=== PATIENT | male | born 1940 | race Caucasian/White ===

== ENCOUNTER 2021-02-28 16:42 | Inpatient (IN) | payer MEDICARE, OTHER ==
[~2021-02-28] VITALS: Ht 167.6 cm; Wt 87.7 kg
[2021-02-28] MEDS ORDERED: Z GUARD REMEDY PASTE 57 GM TUBE TOP PRN (21:15)
[2021-02-28 22:00] VITALS: BP 130/71
[2021-02-28] MEDS ORDERED: FERR325T28 PO (22:15)
[2021-02-28] MEDS ORDERED: HYDR-4077 PO (22:15)
[2021-02-28] MEDS ORDERED: ACET-2154 PO (22:15)
[2021-02-28] MEDS ORDERED: FINA5TAB3 PO (22:15)
[2021-02-28] MEDS ORDERED: PANT40TA2 PO (22:15)
[2021-02-28] MEDS ORDERED: FOLI1TAB94 PO (22:15)
[2021-02-28] MEDS ORDERED: ATOR10TA PO (22:15)
[2021-02-28] MEDS ORDERED: ALLO100T PO (22:15)
[2021-02-28] MEDS ORDERED: LINA5TAB PO (22:15)
[2021-02-28] MEDS ORDERED: BLOO-668 IN (22:15)
[2021-02-28] MEDS ORDERED: AMLO2.5T2 PO (22:15)
[2021-02-28] MEDS ORDERED: HYDR-3972 PO (22:15)
[2021-02-28] MEDS ORDERED: LIPA1CAP27 PO (22:15)
[2021-02-28] MEDS ORDERED: NATE120T PO (22:15)
[2021-02-28] MEDS ORDERED: ENOX40DI SQ (22:15)
[2021-02-28] MEDS ORDERED: TERA10CA4 PO (22:15)
[2021-02-28] MEDS ORDERED: CARV25TA PO (22:15)
[2021-02-28] MEDS ORDERED: ASPI-869 PO (22:15)
[2021-02-28] MEDS ORDERED: INSU100V28 SQ (22:15)
[2021-02-28] MEDS ORDERED: ALLOPURINOL 100 MG TABLET PO PRN (23:15)
[2021-02-28] MEDS ORDERED: DEXTROSE 50% 50 ML DISP.SYRIN IV PRN (23:15)
[2021-02-28] MEDS ORDERED: HYDROCODONE/APAP 5-325MG TABLET PO PRN (23:15)
[2021-03-01 04:00] VITALS: BP 120/65
[2021-03-01] MEDS: BLOOD SUGAR DIAGNOSTIC 1 EACH STRIP VI SCH ×4 (06:53→21:04)
[2021-03-01] MEDS ORDERED: PANTOPRAZOLE SODIUM 40 MG TABLET.DR PO SCH (07:30)
[2021-03-01 08:00] VITALS: BP 119/63
[2021-03-01] MEDS: NATEGLINIDE 60 MG TABLET PO SCH ×3 (08:26→17:16)
[2021-03-01] MEDS: LIPASE/PROTEASE/AMYLASE 4200 UNITS CAPSULE.DR PO SCH ×3 (08:47→17:17)
[2021-03-01] MEDS: CARVEDILOL 25 MG TABLET PO SCH ×2 (08:47→17:17)
[2021-03-01] MEDS: FERROUS SULFATE 325 MG TABEC PO SCH (08:47)
[2021-03-01] MEDS: FOLIC ACID 1 MG TABLET PO SCH (08:47)
[2021-03-01] MEDS: AMLODIPINE 2.5 MG TABLET PO SCH (08:48)
[2021-03-01] MEDS: LINAGLIPTIN 5 MG TABLET PO SCH (08:48)
[2021-03-01] MEDS: FINASTERIDE 5 MG TABLET PO SCH (08:48)
[2021-03-01] MEDS: ASPIRIN 81 MG TAB.CHEW PO SCH (08:48)
[2021-03-01] MEDS: TERAZOSIN 5 MG CAPSULE PO SCH (08:48)
[2021-03-01] MEDS: hydrALAZINE HCL 50 MG TABLET PO SCH ×2 (08:49→20:50)
[2021-03-01] MEDS: INSULIN REGULAR, HUMAN 300 UNIT/3 ML VIAL SQ PRN ×3 (08:51→17:51)
[2021-03-01] MEDS ORDERED: TERAZOSIN HCL 10 MG PO SCH (09:00)
[2021-03-01] MEDS ORDERED: Medication Not On Formulary EA (Nateglinide (Starlix) 120 MG) PO SCH (09:00)
[2021-03-01] MEDS ORDERED: ASPIRIN EC 325 MG TABLET.DR PO SCH (09:00)
[2021-03-01] MEDS: ALLOPURINOL 100 MG TABLET PO SCH (12:04)
[2021-03-01 16:00] VITALS: BP 122/65
[2021-03-01] MEDS ORDERED: ENOXAPARIN SODIUM 40 MG/0.4 ML DISP.SYRIN SQ SCH (18:00)
[2021-03-01 20:28] VITALS: BP 116/64
[2021-03-01] MEDS: ATORVASTATIN 10 MG TABLET PO SCH (20:50)
[2021-03-01] MEDS: ENOXAPARIN SODIUM 40 MG/0.4 ML DISP.SYRIN SQ SCH (20:54)
[2021-03-01] MEDS: INSULIN REGULAR, HUMAN 300 UNITS/3 ML VIAL SQ PRN (21:04)
[2021-03-02 04:00] VITALS: BP 114/55
[2021-03-02] MEDS: NATEGLINIDE 60 MG TABLET PO SCH ×3 (06:33→17:51)
[2021-03-02] MEDS: PANTOPRAZOLE SODIUM 40 MG TABLET.DR PO SCH (06:33)
[2021-03-02] MEDS: BLOOD SUGAR DIAGNOSTIC 1 EACH STRIP VI SCH ×4 (06:37→21:00)
[2021-03-02 06:45] LABS: BASOPHILS % (AUTO) 0.6 % (0.0-2.0); CARBON DIOXIDE 23 mmol/L (21-32); CHLORIDE 102 mmol/L (98-107); CREATININE 1.7 mg/dL (0.6-1.3); EOSINOPHILS # (AUTO) 0.1 K/uL (0.0-0.7); EOSINOPHILS % (AUTO) 2.1 % (0.0-7.0); GLUCOSE 194 mg/dL (74-106); HEMATOCRIT 37.5 % (36.7-47.1); HEMOGLOBIN 12.3 g/dL (12.5-16.3); LYMPHOCYTES # (AUTO) 0.8 K/uL (20.0-40.0); LYMPHOCYTES % (AUTO) 15.5 % (20.5-51.5); MAGNESIUM 1.9 mg/dL (1.8-2.4); MEAN CORPUSCULAR HEMOGLOBIN 29.8 uug (23.8-33.4); MEAN CORPUSCULAR HGB CONC 33 g/dL (32.5-36.3); MEAN CORPUSCULAR VOLUME 90.7 fL (73.0-96.2); MONOCYTES # (AUTO) 0.9 K/uL (2.0-10.0); NEUTROPHILS # (AUTO) 3.6 K/uL (1.8-8.9); NEUTROPHILS % (AUTO) 65.8 % (38.5-71.5); PHOSPHOROUS 3.3 mg/dL (2.5-4.9); PLATELET COUNT (AUTO) 135 K/uL (152-348); POTASSIUM 3.8 mmol/L (3.5-5.1); RED BLOOD CELL COUNT(AUTO) 4.13 MIL/uL (4.06-5.63); UREA NITROGEN, BLOOD 26 mg/dL (7-18); WHITE BLOOD COUNT (AUTO) 5.4 K/uL (3.6-10.2)
[2021-03-02] MEDS ORDERED: PANTOPRAZOLE SODIUM 40 MG TABLET.DR PO SCH (07:00)
[2021-03-02] MEDS: CARVEDILOL 25 MG TABLET PO SCH ×2 (08:00→17:52)
[2021-03-02 08:17] VITALS: BP 98/48
[2021-03-02] MEDS: ASPIRIN 81 MG TAB.CHEW PO SCH (08:32)
[2021-03-02] MEDS: TERAZOSIN 5 MG CAPSULE PO SCH (08:33)
[2021-03-02] MEDS: FINASTERIDE 5 MG TABLET PO SCH (08:34)
[2021-03-02] MEDS: FERROUS SULFATE 325 MG TABEC PO SCH (08:34)
[2021-03-02] MEDS: LINAGLIPTIN 5 MG TABLET PO SCH (08:34)
[2021-03-02] MEDS: FOLIC ACID 1 MG TABLET PO SCH (08:35)
[2021-03-02] MEDS: ALLOPURINOL 100 MG TABLET PO SCH (08:35)
[2021-03-02] MEDS: LIPASE/PROTEASE/AMYLASE 4200 UNITS CAPSULE.DR PO SCH ×3 (08:37→17:50)
[2021-03-02] MEDS: AMLODIPINE 2.5 MG TABLET PO SCH (08:43)
[2021-03-02] MEDS: hydrALAZINE HCL 50 MG TABLET PO SCH ×2 (08:43→20:36)
[2021-03-02 15:46] LABS: EOSINOPHILS % (MANUAL) 1 % (0-8); LYMPHOCYTES % (MANUAL) 14 % (20-40); MONOCYTES % (MANUAL) 16 % (2-10); NEUTROPHILS % (MANUAL) 69 % (42-75)
[2021-03-02 15:49] VITALS: BP 108/57
[2021-03-02] MEDS: INSULIN REGULAR, HUMAN 300 UNIT/3 ML VIAL SQ PRN (17:56)
[2021-03-02 20:10] VITALS: BP 119/64
[2021-03-02] MEDS: ATORVASTATIN 10 MG TABLET PO SCH (20:33)
[2021-03-02] MEDS: INSULIN REGULAR, HUMAN 300 UNITS/3 ML VIAL SQ PRN (20:37)
[2021-03-02] MEDS: ENOXAPARIN SODIUM 40 MG/0.4 ML DISP.SYRIN SQ SCH (20:37)
[2021-03-03 05:37] VITALS: BP 106/48
[2021-03-03] MEDS: PANTOPRAZOLE SODIUM 40 MG TABLET.DR PO SCH (06:33)
[2021-03-03] MEDS: NATEGLINIDE 60 MG TABLET PO SCH ×3 (06:34→17:01)
[2021-03-03] MEDS: BLOOD SUGAR DIAGNOSTIC 1 EACH STRIP VI SCH ×4 (07:02→20:02)
[2021-03-03] MEDS: INSULIN REGULAR, HUMAN 300 UNIT/3 ML VIAL SQ PRN ×3 (07:57→17:42)
[2021-03-03 08:05] VITALS: BP 120/53
[2021-03-03] MEDS: FOLIC ACID 1 MG TABLET PO SCH (08:21)
[2021-03-03] MEDS: ASPIRIN 81 MG TAB.CHEW PO SCH (08:21)
[2021-03-03] MEDS: LINAGLIPTIN 5 MG TABLET PO SCH (08:21)
[2021-03-03] MEDS: TERAZOSIN 5 MG CAPSULE PO SCH (08:21)
[2021-03-03] MEDS: FINASTERIDE 5 MG TABLET PO SCH (08:21)
[2021-03-03] MEDS: FERROUS SULFATE 325 MG TABEC PO SCH (08:21)
[2021-03-03] MEDS: CARVEDILOL 25 MG TABLET PO SCH ×2 (08:22→17:36)
[2021-03-03] MEDS: AMLODIPINE 2.5 MG TABLET PO SCH (08:22)
[2021-03-03] MEDS: hydrALAZINE HCL 50 MG TABLET PO SCH ×2 (08:23→20:02)
[2021-03-03] MEDS: ALLOPURINOL 100 MG TABLET PO SCH (08:23)
[2021-03-03] MEDS: LIPASE/PROTEASE/AMYLASE 4200 UNITS CAPSULE.DR PO SCH ×3 (08:24→17:37)
[2021-03-03 16:11] VITALS: BP 118/60
[2021-03-03 19:46] VITALS: BP 129/63
[2021-03-03] MEDS: ATORVASTATIN 10 MG TABLET PO SCH (20:02)
[2021-03-03] MEDS: ENOXAPARIN SODIUM 40 MG/0.4 ML DISP.SYRIN SQ SCH (20:04)
[2021-03-03] MEDS: INSULIN REGULAR, HUMAN 300 UNITS/3 ML VIAL SQ PRN (20:05)
[2021-03-04 04:45] VITALS: BP 116/60
[2021-03-04] MEDS: NATEGLINIDE 60 MG TABLET PO SCH ×3 (06:27→16:57)
[2021-03-04] MEDS: PANTOPRAZOLE SODIUM 40 MG TABLET.DR PO SCH (06:27)
[2021-03-04 06:41] LABS: BASOPHILS % (AUTO) 0.8 % (0.0-2.0); EOSINOPHILS # (AUTO) 0.1 K/uL (0.0-0.7); HEMATOCRIT 35.5 % (36.7-47.1); LYMPHOCYTES # (AUTO) 1.3 K/uL (20.0-40.0); LYMPHOCYTES % (AUTO) 24.3 % (20.5-51.5); MEAN CORPUSCULAR HEMOGLOBIN 30.4 uug (23.8-33.4); MEAN CORPUSCULAR HGB CONC 34 g/dL (32.5-36.3); MEAN CORPUSCULAR VOLUME 90.1 fL (73.0-96.2); MONOCYTES # (AUTO) 1.1 K/uL (2.0-10.0); MONOCYTES % (AUTO) 21.1 % (0.0-11.0); NEUTROPHILS # (AUTO) 2.8 K/uL (1.8-8.9); NEUTROPHILS % (AUTO) 52.8 % (38.5-71.5); PLATELET COUNT (AUTO) 130 K/uL (152-348); RED BLOOD CELL COUNT(AUTO) 3.94 MIL/uL (4.06-5.63); WHITE BLOOD COUNT (AUTO) 5.3 K/uL (3.6-10.2)
[2021-03-04 06:54] LABS: CARBON DIOXIDE 24 mmol/L (21-32); CHLORIDE 102 mmol/L (98-107); CREATININE 1.8 mg/dL (0.6-1.3); GLUCOSE 168 mg/dL (74-106); POTASSIUM 3.9 mmol/L (3.5-5.1); UREA NITROGEN, BLOOD 24 mg/dL (7-18)
[2021-03-04] MEDS: BLOOD SUGAR DIAGNOSTIC 1 EACH STRIP VI SCH ×4 (07:49→20:43)
[2021-03-04 07:52] LABS: BAND % (MANUAL) 1 % (0-10); EOSINOPHILS % (MANUAL) 1 % (0-8); LYMPHOCYTES % (MANUAL) 20 % (20-40); MONOCYTES % (MANUAL) 12 % (2-10); MYELOCYTES % 1 % (0-0); NEUTROPHILS % (MANUAL) 65 % (42-75)
[2021-03-04] MEDS: CARVEDILOL 25 MG TABLET PO SCH ×2 (08:00→17:13)
[2021-03-04 08:15] VITALS: BP 97/47
[2021-03-04] MEDS: INSULIN REGULAR, HUMAN 300 UNIT/3 ML VIAL SQ PRN ×3 (08:30→17:40)
[2021-03-04] MEDS: LIPASE/PROTEASE/AMYLASE 4200 UNITS CAPSULE.DR PO SCH ×3 (08:32→17:13)
[2021-03-04] MEDS: ASPIRIN 81 MG TAB.CHEW PO SCH (08:35)
[2021-03-04] MEDS: FINASTERIDE 5 MG TABLET PO SCH (08:35)
[2021-03-04] MEDS: FERROUS SULFATE 325 MG TABEC PO SCH (08:35)
[2021-03-04] MEDS: ALLOPURINOL 100 MG TABLET PO SCH (08:35)
[2021-03-04] MEDS: LINAGLIPTIN 5 MG TABLET PO SCH (08:35)
[2021-03-04] MEDS: FOLIC ACID 1 MG TABLET PO SCH (08:35)
[2021-03-04] MEDS: hydrALAZINE HCL 50 MG TABLET PO SCH ×2 (08:38→20:38)
[2021-03-04] MEDS: AMLODIPINE 2.5 MG TABLET PO SCH (08:39)
[2021-03-04 09:55] VITALS: BP 114/60
[2021-03-04] MEDS ORDERED: MAGNESIUM HYDROXIDE 30 ML LIQUID UDC PO PRN (10:00)
[2021-03-04] MEDS: TERAZOSIN 5 MG CAPSULE PO SCH (10:00)
[2021-03-04 15:34] VITALS: BP 107/52
[2021-03-04] MEDS: ATORVASTATIN 10 MG TABLET PO SCH (20:37)
[2021-03-04] MEDS: ENOXAPARIN SODIUM 40 MG/0.4 ML DISP.SYRIN SQ SCH (20:39)
[2021-03-04 20:44] VITALS: BP 114/60
[2021-03-04] MEDS: INSULIN REGULAR, HUMAN 300 UNITS/3 ML VIAL SQ PRN (20:46)
[2021-03-05 04:39] VITALS: BP 114/60
[2021-03-05] MEDS: BLOOD SUGAR DIAGNOSTIC 1 EACH STRIP VI SCH ×4 (06:28→20:40)
[2021-03-05] MEDS: PANTOPRAZOLE SODIUM 40 MG TABLET.DR PO SCH (06:30)
[2021-03-05] MEDS: NATEGLINIDE 60 MG TABLET PO SCH ×3 (06:31→17:07)
[2021-03-05 07:39] VITALS: BP 105/56
[2021-03-05] MEDS: CARVEDILOL 25 MG TABLET PO SCH ×2 (08:00→17:08)
[2021-03-05] MEDS: ASPIRIN 81 MG TAB.CHEW PO SCH (08:23)
[2021-03-05] MEDS: TERAZOSIN 5 MG CAPSULE PO SCH (08:24)
[2021-03-05] MEDS: FINASTERIDE 5 MG TABLET PO SCH (08:24)
[2021-03-05] MEDS: ALLOPURINOL 100 MG TABLET PO SCH (08:24)
[2021-03-05] MEDS: LINAGLIPTIN 5 MG TABLET PO SCH (08:24)
[2021-03-05] MEDS: FERROUS SULFATE 325 MG TABEC PO SCH (08:24)
[2021-03-05] MEDS: hydrALAZINE HCL 50 MG TABLET PO SCH ×2 (08:25→20:33)
[2021-03-05] MEDS: AMLODIPINE 2.5 MG TABLET PO SCH (08:26)
[2021-03-05] MEDS: FOLIC ACID 1 MG TABLET PO SCH (08:26)
[2021-03-05] MEDS: LIPASE/PROTEASE/AMYLASE 4200 UNITS CAPSULE.DR PO SCH ×3 (08:29→17:07)
[2021-03-05] MEDS: INSULIN REGULAR, HUMAN 300 UNIT/3 ML VIAL SQ PRN ×2 (11:37→17:06)
[2021-03-05 15:19] VITALS: BP 104/52
[2021-03-05 20:18] VITALS: BP 114/56
[2021-03-05] MEDS: ATORVASTATIN 10 MG TABLET PO SCH (20:32)
[2021-03-05] MEDS: ENOXAPARIN SODIUM 40 MG/0.4 ML DISP.SYRIN SQ SCH (20:37)
[2021-03-06] MEDS: PANTOPRAZOLE SODIUM 40 MG TABLET.DR PO SCH (06:28)
[2021-03-06] MEDS: BLOOD SUGAR DIAGNOSTIC 1 EACH STRIP VI SCH ×4 (06:34→20:47)
[2021-03-06 06:42] LABS: BASOPHILS % (AUTO) 0.5 % (0.0-2.0); EOSINOPHILS # (AUTO) 0.1 K/uL (0.0-0.7); HEMATOCRIT 36.7 % (36.7-47.1); HEMOGLOBIN 12.1 g/dL (12.5-16.3); LYMPHOCYTES # (AUTO) 1.8 K/uL (20.0-40.0); LYMPHOCYTES % (AUTO) 30.3 % (20.5-51.5); MEAN CORPUSCULAR HEMOGLOBIN 29.8 uug (23.8-33.4); MEAN CORPUSCULAR HGB CONC 33 g/dL (32.5-36.3); MEAN CORPUSCULAR VOLUME 90.2 fL (73.0-96.2); MONOCYTES # (AUTO) 1.1 K/uL (2.0-10.0); MONOCYTES % (AUTO) 18.3 % (0.0-11.0); NEUTROPHILS # (AUTO) 2.9 K/uL (1.8-8.9); NEUTROPHILS % (AUTO) 49.9 % (38.5-71.5); PLATELET COUNT (AUTO) 108 K/uL (152-348); RED BLOOD CELL COUNT(AUTO) 4.07 MIL/uL (4.06-5.63); WHITE BLOOD COUNT (AUTO) 5.8 K/uL (3.6-10.2)
[2021-03-06 07:27] LABS: CARBON DIOXIDE 25 mmol/L (21-32); CHLORIDE 101 mmol/L (98-107); CREATININE 1.6 mg/dL (0.6-1.3); GLUCOSE 188 mg/dL (74-106)
[2021-03-06 08:00] VITALS: BP 134/53
[2021-03-06] MEDS: CARVEDILOL 25 MG TABLET PO SCH ×2 (08:00→17:05)
[2021-03-06 08:05] LABS: UREA NITROGEN, BLOOD 28 mg/dL (7-18)
[2021-03-06] MEDS: NATEGLINIDE 60 MG TABLET PO SCH ×3 (08:44→16:55)
[2021-03-06] MEDS: INSULIN REGULAR, HUMAN 300 UNIT/3 ML VIAL SQ PRN ×3 (08:50→17:38)
[2021-03-06] MEDS: LINAGLIPTIN 5 MG TABLET PO SCH (08:54)
[2021-03-06] MEDS: LIPASE/PROTEASE/AMYLASE 4200 UNITS CAPSULE.DR PO SCH ×3 (08:54→17:05)
[2021-03-06] MEDS: FOLIC ACID 1 MG TABLET PO SCH (08:54)
[2021-03-06] MEDS: FINASTERIDE 5 MG TABLET PO SCH (08:54)
[2021-03-06] MEDS: FERROUS SULFATE 325 MG TABEC PO SCH (08:54)
[2021-03-06] MEDS: ASPIRIN 81 MG TAB.CHEW PO SCH (08:55)
[2021-03-06] MEDS: ALLOPURINOL 100 MG TABLET PO SCH (08:55)
[2021-03-06] MEDS: hydrALAZINE HCL 50 MG TABLET PO SCH ×2 (08:56→20:43)
[2021-03-06] MEDS: AMLODIPINE 2.5 MG TABLET PO SCH (08:57)
[2021-03-06] MEDS: TERAZOSIN 5 MG CAPSULE PO SCH (08:59)
[2021-03-06 09:53] LABS: LYMPHOCYTES % (MANUAL) 23 % (20-40); MONOCYTES % (MANUAL) 14 % (2-10); MYELOCYTES % 2 % (0-0); NEUTROPHILS % (MANUAL) 61 % (42-75)
[2021-03-06 16:03] VITALS: BP 117/56
[2021-03-06] MEDS: GLUCERNA SHAKE VANILLA 237 ML CAN PO SCH (16:56)
[2021-03-06 20:20] VITALS: BP 115/53
[2021-03-06] MEDS: ATORVASTATIN 10 MG TABLET PO SCH (20:42)
[2021-03-06] MEDS: ENOXAPARIN SODIUM 40 MG/0.4 ML DISP.SYRIN SQ SCH (20:46)
[2021-03-06] MEDS: INSULIN REGULAR, HUMAN 300 UNITS/3 ML VIAL SQ PRN (20:49)
[2021-03-07 04:20] VITALS: BP 118/58
[2021-03-07] MEDS: PANTOPRAZOLE SODIUM 40 MG TABLET.DR PO SCH (06:12)
[2021-03-07] MEDS: NATEGLINIDE 60 MG TABLET PO SCH ×3 (06:12→17:12)
[2021-03-07] MEDS: BLOOD SUGAR DIAGNOSTIC 1 EACH STRIP VI SCH ×4 (06:17→21:08)
[2021-03-07 08:06] LABS: ALBUMIN 2.6 g/dL (2.9-4.4); ALPHA-1-GLOBULIN 0.3 g/dL (0.0-0.4); ALPHA-2-GLOBULIN 0.8 g/dL (0.4-1.0); BETA GLOBULIN 0.7 g/dL (0.7-1.3); GAMMA GLOBULIN 0.8 g/dL (0.4-1.8); GLOBULIN, TOTAL 2.6 g/dL (2.2-3.9); M-SPIKE Not Observed g/dL (Not Observed)
[2021-03-07] MEDS: INSULIN REGULAR, HUMAN 300 UNIT/3 ML VIAL SQ PRN ×3 (08:14→17:12)
[2021-03-07] MEDS: hydrALAZINE HCL 50 MG TABLET PO SCH ×2 (09:00→21:00)
[2021-03-07] MEDS: ASPIRIN 81 MG TAB.CHEW PO SCH (09:27)
[2021-03-07] MEDS: FOLIC ACID 1 MG TABLET PO SCH (09:28)
[2021-03-07] MEDS: FINASTERIDE 5 MG TABLET PO SCH (09:28)
[2021-03-07] MEDS: ALLOPURINOL 100 MG TABLET PO SCH (09:28)
[2021-03-07] MEDS: FERROUS SULFATE 325 MG TABEC PO SCH (09:28)
[2021-03-07] MEDS: TERAZOSIN 5 MG CAPSULE PO SCH (09:28)
[2021-03-07] MEDS: LINAGLIPTIN 5 MG TABLET PO SCH (09:28)
[2021-03-07] MEDS: GLUCERNA SHAKE VANILLA 237 ML CAN PO SCH ×2 (09:29→17:13)
[2021-03-07] MEDS: CARVEDILOL 25 MG TABLET PO SCH ×2 (09:32→17:14)
[2021-03-07] MEDS: AMLODIPINE 2.5 MG TABLET PO SCH (09:32)
[2021-03-07] MEDS: LIPASE/PROTEASE/AMYLASE 4200 UNITS CAPSULE.DR PO SCH ×3 (09:33→17:12)
[2021-03-07 15:26] VITALS: BP 114/59
[2021-03-07] MEDS: diphenhydrAMINE 25 MG CAP PO PRN (17:52)
[2021-03-07] MEDS ORDERED: HYDROCORTISONE 2.5% LOTION 59 ML BOTTLE TP PRN (18:30)
[2021-03-07 20:15] VITALS: BP 103/46
[2021-03-07] MEDS: ATORVASTATIN 10 MG TABLET PO SCH (20:59)
[2021-03-07] MEDS: INSULIN REGULAR, HUMAN 300 UNITS/3 ML VIAL SQ PRN (21:00)
[2021-03-07] MEDS ORDERED: HYDROCORTISONE 2.5% CREAM 20 GM TUBE TOP SCH (21:00)
[2021-03-07] MEDS: ENOXAPARIN SODIUM 40 MG/0.4 ML DISP.SYRIN SQ SCH (21:05)
[2021-03-08 04:00] VITALS: BP 101/39
[2021-03-08] MEDS: NATEGLINIDE 60 MG TABLET PO SCH ×3 (06:30→16:45)
[2021-03-08] MEDS: PANTOPRAZOLE SODIUM 40 MG TABLET.DR PO SCH (06:30)
[2021-03-08] MEDS: BLOOD SUGAR DIAGNOSTIC 1 EACH STRIP VI SCH ×4 (06:36→20:31)
[2021-03-08 07:35] VITALS: BP 105/54
[2021-03-08] MEDS: CARVEDILOL 25 MG TABLET PO SCH ×2 (08:00→17:29)
[2021-03-08] MEDS: ALLOPURINOL 100 MG TABLET PO SCH (08:17)
[2021-03-08] MEDS: LINAGLIPTIN 5 MG TABLET PO SCH (08:17)
[2021-03-08] MEDS: FINASTERIDE 5 MG TABLET PO SCH (08:17)
[2021-03-08] MEDS: ASPIRIN 81 MG TAB.CHEW PO SCH (08:17)
[2021-03-08] MEDS: FOLIC ACID 1 MG TABLET PO SCH (08:17)
[2021-03-08] MEDS: FERROUS SULFATE 325 MG TABEC PO SCH (08:18)
[2021-03-08] MEDS: LIPASE/PROTEASE/AMYLASE 4200 UNITS CAPSULE.DR PO SCH ×3 (08:19→17:30)
[2021-03-08] MEDS: hydrALAZINE HCL 50 MG TABLET PO SCH ×3 (08:20→20:42)
[2021-03-08] MEDS: AMLODIPINE 2.5 MG TABLET PO SCH (08:20)
[2021-03-08] MEDS: TERAZOSIN 5 MG CAPSULE PO SCH (08:22)
[2021-03-08] MEDS: GLUCERNA SHAKE VANILLA 237 ML CAN PO SCH ×2 (08:23→17:32)
[2021-03-08] MEDS: INSULIN REGULAR, HUMAN 300 UNIT/3 ML VIAL SQ PRN ×4 (08:30→20:32)
[2021-03-08] MEDS: HYDROCORTISONE 2.5% CREAM 20 GM TUBE TOP PRN (12:25)
[2021-03-08 20:18] VITALS: BP 119/58
[2021-03-08] MEDS: ENOXAPARIN SODIUM 40 MG/0.4 ML DISP.SYRIN SQ SCH (20:31)
[2021-03-08] MEDS: ATORVASTATIN 10 MG TABLET PO SCH (20:31)
[2021-03-08] MEDS: diphenhydrAMINE 25 MG CAP PO PRN (20:32)
[2021-03-09 04:28] VITALS: BP 108/54
[2021-03-09] MEDS: NATEGLINIDE 60 MG TABLET PO SCH ×3 (06:32→17:12)
[2021-03-09] MEDS: PANTOPRAZOLE SODIUM 40 MG TABLET.DR PO SCH (06:32)
[2021-03-09] MEDS: BLOOD SUGAR DIAGNOSTIC 1 EACH STRIP VI SCH ×4 (06:32→20:30)
[2021-03-09] MEDS: INSULIN REGULAR, HUMAN 300 UNIT/3 ML VIAL SQ PRN ×3 (08:00→17:11)
[2021-03-09 08:02] VITALS: BP 115/54
[2021-03-09] MEDS: FERROUS SULFATE 325 MG TABEC PO SCH (08:42)
[2021-03-09] MEDS: LINAGLIPTIN 5 MG TABLET PO SCH (08:42)
[2021-03-09] MEDS: ASPIRIN 81 MG TAB.CHEW PO SCH (08:42)
[2021-03-09] MEDS: FOLIC ACID 1 MG TABLET PO SCH (08:43)
[2021-03-09] MEDS: CARVEDILOL 25 MG TABLET PO SCH ×2 (08:43→17:13)
[2021-03-09] MEDS: ALLOPURINOL 100 MG TABLET PO SCH (08:43)
[2021-03-09] MEDS: TERAZOSIN 5 MG CAPSULE PO SCH (08:43)
[2021-03-09] MEDS: FINASTERIDE 5 MG TABLET PO SCH (08:44)
[2021-03-09] MEDS: AMLODIPINE 2.5 MG TABLET PO SCH (08:44)
[2021-03-09] MEDS: hydrALAZINE HCL 50 MG TABLET PO SCH ×2 (08:44→20:31)
[2021-03-09] MEDS: LIPASE/PROTEASE/AMYLASE 4200 UNITS CAPSULE.DR PO SCH ×3 (08:45→17:14)
[2021-03-09] MEDS: HYDROCORTISONE 2.5% CREAM 20 GM TUBE TOP PRN (08:49)
[2021-03-09] MEDS: GLUCERNA SHAKE VANILLA 237 ML CAN PO SCH ×2 (08:52→17:13)
[2021-03-09 15:29] VITALS: BP 95/43
[2021-03-09 20:13] VITALS: BP 120/45
[2021-03-09] MEDS: ENOXAPARIN SODIUM 40 MG/0.4 ML DISP.SYRIN SQ SCH (20:32)
[2021-03-09] MEDS: diphenhydrAMINE 25 MG CAP PO PRN (20:32)
[2021-03-09] MEDS: ATORVASTATIN 10 MG TABLET PO SCH (20:32)
[2021-03-09] MEDS: INSULIN REGULAR, HUMAN 300 UNITS/3 ML VIAL SQ PRN (20:35)
[2021-03-10 04:52] VITALS: BP 134/54
[2021-03-10] MEDS: NATEGLINIDE 60 MG TABLET PO SCH ×3 (06:32→17:36)
[2021-03-10] MEDS: BLOOD SUGAR DIAGNOSTIC 1 EACH STRIP VI SCH ×4 (06:32→21:41)
[2021-03-10] MEDS: PANTOPRAZOLE SODIUM 40 MG TABLET.DR PO SCH (06:32)
[2021-03-10 07:06] LABS: BASOPHILS % (AUTO) 0.4 % (0.0-2.0); EOSINOPHILS # (AUTO) 0.5 K/uL (0.0-0.7); EOSINOPHILS % (AUTO) 9.1 % (0.0-7.0); HEMATOCRIT 35.4 % (36.7-47.1); HEMOGLOBIN 11.8 g/dL (12.5-16.3); LYMPHOCYTES # (AUTO) 2.1 K/uL (20.0-40.0); LYMPHOCYTES % (AUTO) 37.6 % (20.5-51.5); MEAN CORPUSCULAR HEMOGLOBIN 30.1 uug (23.8-33.4); MEAN CORPUSCULAR HGB CONC 33 g/dL (32.5-36.3); MEAN CORPUSCULAR VOLUME 90.1 fL (73.0-96.2); MONOCYTES # (AUTO) 0.9 K/uL (2.0-10.0); MONOCYTES % (AUTO) 15.1 % (0.0-11.0); NEUTROPHILS # (AUTO) 2.2 K/uL (1.8-8.9); NEUTROPHILS % (AUTO) 37.8 % (38.5-71.5); PLATELET COUNT (AUTO) 175 K/uL (152-348); RED BLOOD CELL COUNT(AUTO) 3.93 MIL/uL (4.06-5.63); WHITE BLOOD COUNT (AUTO) 5.7 K/uL (3.6-10.2)
[2021-03-10 07:16] LABS: CARBON DIOXIDE 25 mmol/L (21-32); CHLORIDE 105 mmol/L (98-107); CREATININE 1.4 mg/dL (0.6-1.3); GLUCOSE 183 mg/dL (74-106); POTASSIUM 4.3 mmol/L (3.5-5.1); UREA NITROGEN, BLOOD 28 mg/dL (7-18)
[2021-03-10] MEDS: FINASTERIDE 5 MG TABLET PO SCH (08:18)
[2021-03-10] MEDS: TERAZOSIN 5 MG CAPSULE PO SCH (08:18)
[2021-03-10] MEDS: ASPIRIN 81 MG TAB.CHEW PO SCH (08:18)
[2021-03-10] MEDS: hydrALAZINE HCL 50 MG TABLET PO SCH ×2 (08:19→21:29)
[2021-03-10] MEDS: ALLOPURINOL 100 MG TABLET PO SCH (08:19)
[2021-03-10] MEDS: AMLODIPINE 2.5 MG TABLET PO SCH (08:19)
[2021-03-10] MEDS: GLUCERNA SHAKE VANILLA 237 ML CAN PO SCH ×2 (08:20→17:36)
[2021-03-10] MEDS: FOLIC ACID 1 MG TABLET PO SCH (08:20)
[2021-03-10] MEDS: FERROUS SULFATE 325 MG TABEC PO SCH (08:20)
[2021-03-10] MEDS: CARVEDILOL 25 MG TABLET PO SCH ×2 (08:20→17:38)
[2021-03-10] MEDS: LINAGLIPTIN 5 MG TABLET PO SCH (08:20)
[2021-03-10] MEDS: LIPASE/PROTEASE/AMYLASE 4200 UNITS CAPSULE.DR PO SCH ×3 (08:21→17:43)
[2021-03-10] MEDS: INSULIN REGULAR, HUMAN 300 UNIT/3 ML VIAL SQ PRN ×3 (08:23→17:40)
[2021-03-10 08:56] LABS: EOSINOPHILS % (MANUAL) 9 % (0-8); LYMPHOCYTES % (MANUAL) 41 % (20-40); MONOCYTES % (MANUAL) 12 % (2-10); MYELOCYTES % 1 % (0-0); NEUTROPHILS % (MANUAL) 37 % (42-75)
[2021-03-10 16:27] VITALS: BP 109/57
[2021-03-10] MEDS: HYDROCORTISONE 2.5% CREAM 20 GM TUBE TOP PRN (17:43)
[2021-03-10 20:22] VITALS: BP 113/52
[2021-03-10] MEDS: ATORVASTATIN 10 MG TABLET PO SCH (21:29)
[2021-03-10] MEDS: ENOXAPARIN SODIUM 40 MG/0.4 ML DISP.SYRIN SQ SCH (21:33)
[2021-03-10] MEDS: INSULIN REGULAR, HUMAN 300 UNITS/3 ML VIAL SQ PRN (21:51)
[2021-03-11 04:35] VITALS: BP 130/65
[2021-03-11] MEDS: PANTOPRAZOLE SODIUM 40 MG TABLET.DR PO SCH (06:37)
[2021-03-11] MEDS: NATEGLINIDE 60 MG TABLET PO SCH ×3 (06:38→17:50)
[2021-03-11] MEDS: BLOOD SUGAR DIAGNOSTIC 1 EACH STRIP VI SCH ×4 (06:44→20:15)
[2021-03-11 08:00] VITALS: BP 124/58
[2021-03-11] MEDS: FOLIC ACID 1 MG TABLET PO SCH (08:27)
[2021-03-11] MEDS: LINAGLIPTIN 5 MG TABLET PO SCH (08:27)
[2021-03-11] MEDS: ASPIRIN 81 MG TAB.CHEW PO SCH (08:27)
[2021-03-11] MEDS: FINASTERIDE 5 MG TABLET PO SCH (08:27)
[2021-03-11] MEDS: CARVEDILOL 25 MG TABLET PO SCH ×2 (08:28→17:50)
[2021-03-11] MEDS: METFORMIN HCL 500 MG TABLET PO SCH ×2 (08:28→17:49)
[2021-03-11] MEDS: AMLODIPINE 2.5 MG TABLET PO SCH (08:28)
[2021-03-11] MEDS: ALLOPURINOL 100 MG TABLET PO SCH (08:28)
[2021-03-11] MEDS: FERROUS SULFATE 325 MG TABEC PO SCH (08:29)
[2021-03-11] MEDS: GLUCERNA SHAKE VANILLA 237 ML CAN PO SCH ×2 (08:29→17:50)
[2021-03-11] MEDS: LIPASE/PROTEASE/AMYLASE 4200 UNITS CAPSULE.DR PO SCH ×3 (08:30→17:49)
[2021-03-11] MEDS: hydrALAZINE HCL 50 MG TABLET PO SCH ×2 (08:30→20:14)
[2021-03-11] MEDS: INSULIN REGULAR, HUMAN 300 UNIT/3 ML VIAL SQ PRN ×3 (08:33→17:53)
[2021-03-11 16:28] VITALS: BP 99/40
[2021-03-11] MEDS: ATORVASTATIN 10 MG TABLET PO SCH (20:14)
[2021-03-11] MEDS: ENOXAPARIN SODIUM 40 MG/0.4 ML DISP.SYRIN SQ SCH (20:16)
[2021-03-11] MEDS: INSULIN REGULAR, HUMAN 300 UNITS/3 ML VIAL SQ PRN (20:17)
[2021-03-11 20:28] VITALS: BP 117/52
[2021-03-11] MEDS ORDERED: TERAZOSIN 5 MG CAPSULE PO SCH (21:00)
[2021-03-12 04:41] VITALS: BP 117/45
[2021-03-12] MEDS: PANTOPRAZOLE SODIUM 40 MG TABLET.DR PO SCH (05:48)
[2021-03-12] MEDS: BLOOD SUGAR DIAGNOSTIC 1 EACH STRIP VI SCH ×2 (06:13→12:15)
[2021-03-12] MEDS: NATEGLINIDE 60 MG TABLET PO SCH ×2 (06:13→12:02)
[2021-03-12 08:00] VITALS: BP 115/59
[2021-03-12] MEDS: CARVEDILOL 25 MG TABLET PO SCH (08:00)
[2021-03-12] MEDS: LIPASE/PROTEASE/AMYLASE 4200 UNITS CAPSULE.DR PO SCH ×2 (08:23→12:02)
[2021-03-12] MEDS: ASPIRIN 81 MG TAB.CHEW PO SCH (08:24)
[2021-03-12] MEDS: FERROUS SULFATE 325 MG TABEC PO SCH (08:24)
[2021-03-12] MEDS: LINAGLIPTIN 5 MG TABLET PO SCH (08:24)
[2021-03-12] MEDS: ALLOPURINOL 100 MG TABLET PO SCH (08:24)
[2021-03-12] MEDS: METFORMIN HCL 500 MG TABLET PO SCH (08:24)
[2021-03-12] MEDS: FOLIC ACID 1 MG TABLET PO SCH (08:24)
[2021-03-12] MEDS: HYDROCORTISONE 2.5% CREAM 20 GM TUBE TOP PRN (08:25)
[2021-03-12] MEDS: FINASTERIDE 5 MG TABLET PO SCH (08:25)
[2021-03-12] MEDS: GLUCERNA SHAKE VANILLA 237 ML CAN PO SCH (08:25)
[2021-03-12] MEDS: INSULIN REGULAR, HUMAN 300 UNIT/3 ML VIAL SQ PRN ×2 (08:27→12:19)
[2021-03-12 08:32] VITALS: BP 107/48
[2021-03-12] MEDS: hydrALAZINE HCL 50 MG TABLET PO SCH (08:33)
[2021-03-12] MEDS: AMLODIPINE 2.5 MG TABLET PO SCH (08:33)
[2021-03-12 15:11] VITALS: BP 145/63
== END 2021-03-12 15:35 | disposition home health service (06) | DRG 189 ==
PROVIDERS: ADMIT Physical Medicine & Rehabilitation Pain Medicine; ATTEND Physical Medicine & Rehabilitation Pain Medicine
DX: J96.01 Acute respiratory failure with hypoxia (principal); N17.0 Acute kidney failure with tubular necrosis; D68.59 Other primary thrombophilia; N17.9 Acute kidney failure, unspecified; K86.1 Other chronic pancreatitis; D64.9 Anemia, unspecified; R50.9 Fever, unspecified; N18.30 Chronic kidney disease, stage 3 unspecified; E11.22 Type 2 diabetes mellitus with diabetic chronic kidney disease; E78.00 Pure hypercholesterolemia, unspecified; E78.5 Hyperlipidemia, unspecified; I12.9 Hypertensive chronic kidney disease with stage 1 through stage 4 chronic kidney disease, or unspecified chronic kidney disease; N40.0 Benign prostatic hyperplasia without lower urinary tract symptoms; M10.9 Gout, unspecified; R53.81 Other malaise; B34.9 Viral infection, unspecified; E11.65 Type 2 diabetes mellitus with hyperglycemia; G89.29 Other chronic pain; M19.90 Unspecified osteoarthritis, unspecified site; Z68.31 Body mass index [BMI] 31.0-31.9, adult; E66.9 Obesity, unspecified; Z20.822 Contact with and (suspected) exposure to COVID-19; L27.0 Generalized skin eruption due to drugs and medicaments taken internally; T50.905A Adverse effect of unspecified drugs, medicaments and biological substances, initial encounter; Y92.230 Patient room in hospital as the place of occurrence of the external cause
CPT/HCPCS: 36415; 70030-TC; 83735; 83970; 84100; 84155; 84165; 85025; J1650; J1815; J8499; Q0163

== ENCOUNTER 2021-09-25 14:27 | Inpatient (IN) | payer MEDICARE, OTHER ==
[~2021-09-25] VITALS: Ht 167.6 cm; Wt 89.8 kg
[~2021-09-25 14:27] MED LIST: ACET-2154 PO; ALLO100T PO; AMLO2.5T2 PO; ASPI-869 PO; ATOR10TA PO; BLOO-668 IN; CARV25TA PO; ENOX40DI SQ; FERR325T28 PO; FINA5TAB3 PO; FOLI1TAB94 PO; HYDR-3972 PO; HYDR-4077 PO; INSU100V28 SQ; LINA5TAB PO; LIPA1CAP27 PO; NATE120T PO; PANT40TA2 PO; TERA10CA4 PO
[2021-09-25 18:30] VITALS: BP 135/67
[2021-09-25 20:00] VITALS: BP 115/56
[2021-09-25] MEDS ORDERED: Z GUARD REMEDY PASTE 57 GM TUBE TOP PRN (20:15)
[2021-09-25] MEDS ORDERED: CICL6.6S5 TP (21:31)
[2021-09-25] MEDS ORDERED: TROS20TA3 PO (21:31)
[2021-09-25] MEDS ORDERED: AMYL1CAP58 PO (21:31)
[2021-09-25] MEDS ORDERED: MIRA25TA PO (21:31)
[2021-09-25] MEDS ORDERED: ASPI81TA31 PO (21:31)
[2021-09-25] MEDS ORDERED: INSU100I19 SQ (21:31)
[2021-09-25] MEDS ORDERED: OMEP20CA15 PO (21:31)
[2021-09-25] MEDS ORDERED: ROSU5TAB PO (21:31)
[2021-09-25] MEDS ORDERED: ACETAMINOPHEN 325 MG TABLET-SA PATIENTS-PAIN ONLY PO PRN (22:00)
[2021-09-25] MEDS ORDERED: DEXTROSE 50% 50 ML DISP.SYRIN IV PRN (22:00)
[2021-09-25] MEDS ORDERED: ALLOPURINOL 100 MG TABLET PO PRN (22:00)
--- NOTE | 2021-09-25 23:54 | NUR ---
Received admission report from AM shift nurse Viviana. Admitted 81 y/o male to rehab with dx of generalized weakness and acute metabolic encephalopathy. He is alert and oriented x2-3, Mauritanian speaking with little bit of Nepali. Pt's daughter is at bedside. He is on O2 at 2LPM via NC saturating at 95%. No respiratory distress noted. Denies pain and discomfort at this time. Incontinent to B&B. Initial assessment done, belongings list filled up, and body assessment done with pictures taken and placed in chart. All needs attended. Call light placed within reach. Safety precautions observed. Will continue to monitor.
[2021-09-26] MEDS: BLOOD SUGAR DIAGNOSTIC 1 EACH STRIP VI SCH ×8 (06:28→21:06)
[2021-09-26] MEDS: PANTOPRAZOLE SODIUM 40 MG TABLET.DR PO SCH (06:30)
--- NOTE | 2021-09-26 06:46 | NUR ---
Pt slept intermittently throughout the night. Easily arousable for care. Accucheck done, BS 151. Pt refused vital signs and medications. Risks and benefits explained x3, pt still refused. All needs attended. Call light placed within reach. Frequent visual checks done. Safety precautions maintained. Will endorse to next shift for continuity of care.
[2021-09-26] MEDS ORDERED: ACETAMINOPHEN 325 MG TABLET PO PRN (07:00)
[2021-09-26] MEDS: NATEGLINIDE 60 MG TABLET PO SCH ×3 (07:07→18:48)
[2021-09-26] MEDS ORDERED: NATEGLINIDE 60 MG TABLET ONE (07:12)
[2021-09-26 07:48] VITALS: BP 122/61
[2021-09-26 09:00] VITALS: BP 140/65
[2021-09-26] MEDS ORDERED: Mirabegron (Myrbetriq) 25 MG) PO SCH (09:00)
[2021-09-26] MEDS: TERAZOSIN 5 MG CAPSULE PO SCH (09:29)
[2021-09-26] MEDS: AMLODIPINE 2.5 MG TABLET PO SCH (09:29)
[2021-09-26] MEDS: hydrALAZINE HCL 50 MG TABLET PO SCH ×2 (09:30→17:00)
[2021-09-26] MEDS: FERROUS SULFATE 325 MG TABEC PO SCH (09:30)
[2021-09-26] MEDS: CARVEDILOL 25 MG TABLET PO SCH ×2 (09:30→17:00)
[2021-09-26] MEDS: ASPIRIN 81 MG TAB.CHEW PO SCH (09:30)
[2021-09-26] MEDS: LINAGLIPTIN 5 MG TABLET PO SCH (09:31)
[2021-09-26] MEDS: FOLIC ACID 1 MG TABLET PO SCH (09:31)
[2021-09-26] MEDS: FINASTERIDE 5 MG TABLET PO SCH (09:31)
[2021-09-26 15:22] VITALS: BP 100/49
--- NOTE | 2021-09-26 17:39 | NUR ---
Pt is a/o x 2-3, libyan speaking. Pt is on room air, ambulatory w/ assist with pt (unsteady). He sits in chair and dangles his feet sitting up in bed. Pt is independent in feeding and taking medication. He was cooperative with care and medications today. Pt does not complain of pain, he is incontinent x 2. he had two BMs, uses diaper. I spoke with pt's daughter, Corrie, she will bring the pt's home medications. NO signs of acute distress or discomfort, will continue to monitor pt and endorse pt to genetic supervisor.
[2021-09-26] MEDS: INSULIN REGULAR, HUMAN 300 UNIT/3 ML VIAL SQ PRN (18:49)
--- NOTE | 2021-09-26 19:18 | NUR ---
Received patient sitting at the side of the bed. AOx2-3. Iraqi speaking. Daughter at bedside. Received bag of home medications from daughter, will send to pharmacy for review. No acute distress noted at this time. Safety and comfort measures initiated. Call light button and bedside table within reach, side rails x2 up and bed on lock. Will continue to monitor.
[2021-09-26 20:00] VITALS: BP 114/54
[2021-09-26] MEDS: ATORVASTATIN 10 MG TABLET PO SCH (20:48)
[2021-09-26] MEDS: INSULIN GLARGINE,HUM 300 UNITS/3 ML CARTRIDGE SQ SCH (21:01)
--- NOTE | 2021-09-26 21:30 | NUR ---
Skylar taken, BS of 193mg/dl, given 26 units of insulin glargine injection.
[2021-09-27 04:00] VITALS: BP 106/52
[2021-09-27] MEDS: PANTOPRAZOLE SODIUM 40 MG TABLET.DR PO SCH (07:01)
[2021-09-27] MEDS: NATEGLINIDE 60 MG TABLET PO SCH ×3 (07:03→16:52)
[2021-09-27] MEDS: BLOOD SUGAR DIAGNOSTIC 1 EACH STRIP VI SCH ×5 (07:08→20:05)
--- NOTE | 2021-09-27 07:20 | NUR ---
Patient slept through the night. No acute distress noted at this time. All due medications were given as ordered and tolerated well. Accuchek done, BS of 160mg/dl. V/S are within normal limits. Small wound on right shoulder cleansed with iodine and covered with clean gauze. Pt had a 1 bowel movement this morning. Safety and comfort measures maintained. Will endorse to day shift nurse.
[2021-09-27 07:43] VITALS: BP 119/61
[2021-09-27] MEDS: INSULIN REGULAR, HUMAN 300 UNIT/3 ML VIAL SQ PRN ×4 (07:59→20:05)
[2021-09-27] MEDS: CARVEDILOL 25 MG TABLET PO SCH ×2 (08:01→16:53)
[2021-09-27] MEDS: ASPIRIN 81 MG TAB.CHEW PO SCH (08:01)
[2021-09-27] MEDS: LINAGLIPTIN 5 MG TABLET PO SCH (08:02)
[2021-09-27] MEDS: FERROUS SULFATE 325 MG TABEC PO SCH (08:02)
[2021-09-27] MEDS: hydrALAZINE HCL 50 MG TABLET PO SCH ×2 (08:03→16:53)
[2021-09-27] MEDS: AMLODIPINE 2.5 MG TABLET PO SCH (08:03)
[2021-09-27] MEDS: FOLIC ACID 1 MG TABLET PO SCH (08:03)
[2021-09-27] MEDS: TERAZOSIN 5 MG CAPSULE PO SCH (08:04)
[2021-09-27] MEDS: FINASTERIDE 5 MG TABLET PO SCH (08:04)
[2021-09-27] MEDS: CREON 24000 UNIT PO SCH ×3 (10:09→16:56)
[2021-09-27] MEDS: TROSPIUM CHLORIDE 20 MG PO SCH ×2 (10:09→16:56)
[2021-09-27] MEDS ORDERED: LINA1TAB3 PO (11:07)
[2021-09-27 14:57] VITALS: BP 110/61
--- NOTE | 2021-09-27 15:12 | NUR ---
patient is alert, oriented x2 with episodes of forgetfulness, patient found on floor in his room, in laying position on his right side, body assessment performed, no bruises or discoloration noted at this time, no raised bumps noted at head, patient denied hitting his head to anything, patient "nodded" his head for any pain. ROM is active to both upper and lower extremities, neurocheck performed x1, PERRLA is intact, no distress noted at this time, Esperanza GREENE is aware, continue to monitor closely for safety. bed alarm is on. patient was sitting in his wheelchair before fall incident, call light was with in reach, table was in front of patient and personnel belongings were in reach. patient is in bed this time, bed alarm in on, call light with in reach, reminded patient to push the call button for temporary office assistant. phone is with in reach as well, will continue to monitor for any change in condition, and for safety. Addendum: 09/27/21 at 1604 by RICKEY POLANCO RN, RN Patient needs frequent reminders to use the call light for temporary office assistant, patient is very forgetfull Addendum: 09/27/21 at 1637 by RICKEY POLANCO RN RN patient noted with right elbow abrasion, size 3cm x2cm, continue to keep clean and dry
[2021-09-27 16:15] VITALS: BP 109/61
[2021-09-27 16:27] VITALS: BP_SYST 100; BP_SYST 90; BP_SYST 95; BP_DIAS 55; BP_DIAS 58; BP_DIAS 62
[2021-09-27] MEDS: JENTADUETO PO SCH (17:07)
--- NOTE | 2021-09-27 17:55 | NUR ---
bed alarm was ringing, upon going to patient room right away, patient wanted to go to bathroom, however does not call for help, forgets to use the call light for finance assistant, noted with unsteady gait, assisted to the bathroom, assisted back to bed, bed alarm on, call light with in reach, reminded to use the call light for finance assistant. will continue to monitor for safety measures, no distress noted at this time. will endorse to next shift accordingly. patient is very forgetful and needs finance assistant with adls.
--- NOTE | 2021-09-27 19:04 | NUR ---
instructions provided to STREET LIGHT CLEANERFabien Crespo that patient is status post fall, ,needs frequent monitoring, bed alarm on, needs audiology assistant with adls, patient is not independent with adls, patient's gait is unsteady and high risk to fall, STREET LIGHT CLEANER verbalized understanding of it
[2021-09-27 20:00] VITALS: BP 112/56
[2021-09-27] MEDS: INSULIN GLARGINE,HUM 300 UNITS/3 ML CARTRIDGE SQ SCH (20:03)
[2021-09-27] MEDS: ATORVASTATIN 10 MG TABLET PO SCH (21:31)
[2021-09-28 04:48] VITALS: BP 113/56
[2021-09-28] MEDS: PANTOPRAZOLE SODIUM 40 MG TABLET.DR PO SCH (06:09)
[2021-09-28] MEDS: NATEGLINIDE 60 MG TABLET PO SCH ×3 (06:34→16:37)
[2021-09-28] MEDS: BLOOD SUGAR DIAGNOSTIC 1 EACH STRIP VI SCH ×4 (06:34→20:07)
--- NOTE | 2021-09-28 06:39 | NUR ---
Received resident awake on bed upon initial rounds. Daughter at bedside, informed regarding pt's fall and skin abrasion during AM shift. Slept intermittently throughout the shift. Assisted to the bathroom, gait noted to be unsteady. Due medications given on time and accuchecks done. All needs attended. Call light placed within reach. Safety precautions observed. Will endorse to next shift for continuity of care.
--- NOTE | 2021-09-28 07:30 | NUR ---
patient is alert and oriented and able to make needs known, patient is kuwaiti speaking, language barrier. DTR susi available to transfer. patient reminded to call for assistance. v/s wnl at this time, 0 c/o pain. side rails up x2, will monitor.
[2021-09-28 07:42] VITALS: BP 131/65
[2021-09-28] MEDS: JENTADUETO PO SCH ×2 (09:00→17:06)
[2021-09-28] MEDS: INSULIN REGULAR, HUMAN 300 UNIT/3 ML VIAL SQ PRN ×4 (09:01→20:17)
[2021-09-28] MEDS: FERROUS SULFATE 325 MG TABEC PO SCH (09:05)
[2021-09-28] MEDS: FINASTERIDE 5 MG TABLET PO SCH (09:05)
[2021-09-28] MEDS: TERAZOSIN 5 MG CAPSULE PO SCH (09:08)
[2021-09-28] MEDS: FOLIC ACID 1 MG TABLET PO SCH (09:10)
[2021-09-28] MEDS: AMLODIPINE 2.5 MG TABLET PO SCH (09:11)
[2021-09-28] MEDS: ASPIRIN 81 MG TAB.CHEW PO SCH (09:11)
[2021-09-28] MEDS: hydrALAZINE HCL 50 MG TABLET PO SCH ×2 (09:11→16:42)
[2021-09-28] MEDS: CARVEDILOL 25 MG TABLET PO SCH ×2 (09:11→16:41)
[2021-09-28] MEDS: CREON 24000 UNIT PO SCH ×3 (09:12→16:39)
[2021-09-28] MEDS: TROSPIUM CHLORIDE 20 MG PO SCH ×2 (09:12→16:39)
[2021-09-28 14:59] VITALS: BP 104/59
--- NOTE | 2021-09-28 16:22 | NUR ---
INDIVIDUALIZED PLAN OF CARE
--- NOTE | 2021-09-28 18:42 | NUR ---
patient complaining of constipation, offered prune juice, will monitor.
[2021-09-28] MEDS: DOCUSATE SODIUM 100 MG CAPSULE PO SCH (20:06)
[2021-09-28] MEDS: ATORVASTATIN 10 MG TABLET PO SCH (20:06)
[2021-09-28 20:15] VITALS: BP 139/69
[2021-09-28] MEDS: INSULIN GLARGINE,HUM 300 UNITS/3 ML CARTRIDGE SQ SCH (20:16)
--- NOTE | 2021-09-28 21:27 | NUR ---
Received pt sitting down at the edge of the bed. AAO x2-3, Belizean speaking. No acute distress noted. Denies pain/ discomfort. Due meds given as ordered. Blood sugar 181, insulin coverage given as per sliding scale. Pt also has Lantus. Snacks provided to prevent sudden hypoglycemia. Pt assisted to the bathroom. Pt encouraged to use call light, but pt gets OOB without assist despite teaching. Bed alarm on. Safety measures maintained. Call light and personal items within reach. Will continue to monitor.
[2021-09-29 04:15] VITALS: BP 131/71
[2021-09-29] MEDS: PANTOPRAZOLE SODIUM 40 MG TABLET.DR PO SCH (06:43)
[2021-09-29] MEDS: BLOOD SUGAR DIAGNOSTIC 1 EACH STRIP VI SCH ×4 (06:47→21:37)
[2021-09-29 07:51] VITALS: BP 110/58
[2021-09-29] MEDS: FERROUS SULFATE 325 MG TABEC PO SCH (08:08)
[2021-09-29] MEDS: ASPIRIN 81 MG TAB.CHEW PO SCH (08:08)
[2021-09-29] MEDS: FINASTERIDE 5 MG TABLET PO SCH (08:08)
[2021-09-29] MEDS: FOLIC ACID 1 MG TABLET PO SCH (08:08)
[2021-09-29] MEDS: NATEGLINIDE 60 MG TABLET PO SCH ×3 (08:09→16:42)
[2021-09-29] MEDS: JENTADUETO PO SCH ×2 (08:10→18:10)
[2021-09-29] MEDS: TERAZOSIN 5 MG CAPSULE PO SCH (08:13)
[2021-09-29] MEDS: CREON 24000 UNIT PO SCH ×3 (08:14→17:27)
[2021-09-29] MEDS: TROSPIUM CHLORIDE 20 MG PO SCH ×2 (08:15→17:27)
[2021-09-29] MEDS: AMLODIPINE 2.5 MG TABLET PO SCH (08:16)
[2021-09-29] MEDS: CARVEDILOL 25 MG TABLET PO SCH ×2 (08:17→17:24)
--- NOTE | 2021-09-29 08:35 | NUR ---
Patient received sitting bedside. Malian speaking, alert & oriented. On room air. No acute distress noted. Morning meds administered as due, tolerated well. VSS. Bed alarm on. Call light within reach. Bed in lowest position. Assisted with all needs. Will continue to monitor
[2021-09-29] MEDS: hydrALAZINE HCL 50 MG TABLET PO SCH ×2 (09:55→18:00)
[2021-09-29] MEDS: INSULIN REGULAR, HUMAN 300 UNIT/3 ML VIAL SQ PRN ×2 (11:46→21:37)
[2021-09-29 17:37] VITALS: BP 127/64
[2021-09-29 20:00] VITALS: BP 121/56
[2021-09-29] MEDS: ATORVASTATIN 10 MG TABLET PO SCH (21:32)
[2021-09-29] MEDS: DOCUSATE SODIUM 100 MG CAPSULE PO SCH (21:32)
[2021-09-29] MEDS: INSULIN GLARGINE,HUM 300 UNITS/3 ML CARTRIDGE SQ SCH (21:38)
--- NOTE | 2021-09-29 22:46 | NUR ---
Received pt resting in bed. AAO x2-3, forgetful. Prydeinig speaking, able to make needs known. Pt's daughter came to visit. No acute distress noted. Denies pain/ discomfort. Blood sugar 116. Due meds given as ordered. Pt given snack. Safety measures maintained. Call light within reach. Will continue to monitor.
[2021-09-30 04:00] VITALS: BP 120/72
[2021-09-30] MEDS: PANTOPRAZOLE SODIUM 40 MG TABLET.DR PO SCH (06:13)
[2021-09-30] MEDS: BLOOD SUGAR DIAGNOSTIC 1 EACH STRIP VI SCH ×4 (06:51→20:58)
[2021-09-30 08:00] VITALS: BP 129/49
[2021-09-30] MEDS: NATEGLINIDE 60 MG TABLET PO SCH ×3 (08:00→17:37)
[2021-09-30] MEDS: INSULIN REGULAR, HUMAN 300 UNIT/3 ML VIAL SQ PRN ×2 (08:00→11:54)
[2021-09-30] MEDS: FERROUS SULFATE 325 MG TABEC PO SCH (08:01)
[2021-09-30] MEDS: FINASTERIDE 5 MG TABLET PO SCH (08:01)
[2021-09-30] MEDS: FOLIC ACID 1 MG TABLET PO SCH (08:01)
[2021-09-30] MEDS: ASPIRIN 81 MG TAB.CHEW PO SCH (08:01)
[2021-09-30] MEDS: CARVEDILOL 25 MG TABLET PO SCH ×3 (08:05→17:39)
[2021-09-30] MEDS: AMLODIPINE 2.5 MG TABLET PO SCH (08:05)
[2021-09-30] MEDS: TERAZOSIN 5 MG CAPSULE PO SCH (08:06)
[2021-09-30] MEDS: JENTADUETO PO SCH ×2 (08:07→17:37)
[2021-09-30] MEDS: TROSPIUM CHLORIDE 20 MG PO SCH ×2 (08:07→17:38)
[2021-09-30] MEDS: CREON 24000 UNIT PO SCH ×3 (08:08→17:37)
--- NOTE | 2021-09-30 08:31 | NUR ---
Patient received sitting bedside. A&Ox3. On room air. VSS. Morning meds administered and tolerated well. No c/o pain verbalized. BS 131, coverage administered per protocol. Assisted to restroom with minimal assist. AM care provided. Safety precautions in place. Will continue to monitor
[2021-09-30] MEDS: hydrALAZINE HCL 50 MG TABLET PO SCH ×3 (09:00→17:40)
--- NOTE | 2021-09-30 19:15 | NUR ---
Sleeping during initial rounds. No s/s of respiratory distress. Safety measures and fall prevention maintained. Continue care as planned.
[2021-09-30 20:01] VITALS: BP 122/46
[2021-09-30] MEDS: ATORVASTATIN 10 MG TABLET PO SCH (20:50)
[2021-09-30] MEDS: DOCUSATE SODIUM 100 MG CAPSULE PO SCH (20:50)
[2021-09-30] MEDS: INSULIN GLARGINE,HUM 300 UNITS/3 ML CARTRIDGE SQ SCH (20:59)
[2021-10-01] MEDS: NATEGLINIDE 60 MG TABLET PO SCH ×3 (06:47→16:37)
[2021-10-01] MEDS: PANTOPRAZOLE SODIUM 40 MG TABLET.DR PO SCH (06:47)
[2021-10-01] MEDS: BLOOD SUGAR DIAGNOSTIC 1 EACH STRIP VI SCH ×4 (06:50→20:38)
[2021-10-01 08:00] VITALS: BP_SYST 135; BP_DIAS 66; BP_DIAS 69
[2021-10-01] MEDS: FINASTERIDE 5 MG TABLET PO SCH (08:42)
[2021-10-01] MEDS: FOLIC ACID 1 MG TABLET PO SCH (08:42)
[2021-10-01] MEDS: FERROUS SULFATE 325 MG TABEC PO SCH (08:42)
[2021-10-01] MEDS: ASPIRIN 81 MG TAB.CHEW PO SCH (08:42)
[2021-10-01] MEDS: TROSPIUM CHLORIDE 20 MG PO SCH ×2 (08:42→17:33)
[2021-10-01] MEDS: CREON 24000 UNIT PO SCH ×3 (08:43→17:33)
[2021-10-01] MEDS: JENTADUETO PO SCH ×2 (08:43→17:33)
[2021-10-01] MEDS: TERAZOSIN 5 MG CAPSULE PO SCH (08:44)
[2021-10-01] MEDS: CARVEDILOL 25 MG TABLET PO SCH ×2 (08:45→17:36)
[2021-10-01] MEDS: hydrALAZINE HCL 50 MG TABLET PO SCH ×2 (08:45→17:37)
[2021-10-01] MEDS: AMLODIPINE 2.5 MG TABLET PO SCH (08:45)
[2021-10-01 16:00] VITALS: BP 119/57
--- NOTE | 2021-10-01 18:10 | NUR ---
Patient pleasant and cooperative throughout shift. On room air. VSS. No c/o pain verbalized. No signs of acute distress noted. All needs met. Safety measures maintained. Will endorse to rn night nurse
[2021-10-01 20:00] VITALS: BP 120/61
[2021-10-01] MEDS: DOCUSATE SODIUM 100 MG CAPSULE PO SCH (20:35)
[2021-10-01] MEDS: ATORVASTATIN 10 MG TABLET PO SCH (20:35)
[2021-10-01] MEDS: INSULIN GLARGINE,HUM 300 UNITS/3 ML CARTRIDGE SQ SCH (20:39)
[2021-10-02 04:00] VITALS: BP 149/86
[2021-10-02] MEDS: NATEGLINIDE 60 MG TABLET PO SCH ×3 (05:56→17:45)
[2021-10-02] MEDS: PANTOPRAZOLE SODIUM 40 MG TABLET.DR PO SCH (05:56)
[2021-10-02 06:28] LABS: HEMATOCRIT 35.7 % (36.7-47.1); MEAN CORPUSCULAR HEMOGLOBIN 30.7 uug (23.8-33.4); MEAN CORPUSCULAR VOLUME 91.4 fL (73.0-96.2); PLATELET COUNT (AUTO) 400 K/uL (152-348)
[2021-10-02 06:52] LABS: THYROID STIMULATING HORMONE 0.821 mIU/mL (0.358-3.740)
[2021-10-02 07:18] LABS: ALANINE AMINOTRANSFERASE 23 U/L (16-63); ALKALINE PHOSPHATASE 80 U/L (50-136); ASPARTATE AMINOTRANSFERASE 42 U/L (15-37); BILIRUBIN,TOTAL 0.4 mg/dL (0.2-1.0); CARBON DIOXIDE 27 mmol/L (21-32); CHLORIDE 108 mmol/L (98-107); CHOLESTEROL 112 mg/dL (<200); CREATININE 1.4 mg/dL (0.6-1.3); GLUCOSE 90 mg/dL (74-106); HDL CHOLESTEROL 21 mg/dL (40-60); MAGNESIUM 2.1 mg/dL (1.8-2.4); PHOSPHOROUS 4.2 mg/dL (2.5-4.9); POTASSIUM 4.5 mmol/L (3.5-5.1); TRIGLYCERIDES 285 MG/DL (30-150); UREA NITROGEN, BLOOD 19 mg/dL (7-18)
[2021-10-02 07:30] VITALS: BP 115/59
[2021-10-02] MEDS: ASPIRIN 81 MG TAB.CHEW PO SCH (09:32)
[2021-10-02] MEDS: FERROUS SULFATE 325 MG TABEC PO SCH (09:32)
[2021-10-02] MEDS: FOLIC ACID 1 MG TABLET PO SCH (09:32)
[2021-10-02] MEDS: FINASTERIDE 5 MG TABLET PO SCH (09:32)
[2021-10-02] MEDS: CREON 24000 UNIT PO SCH ×3 (09:35→17:45)
[2021-10-02] MEDS: TROSPIUM CHLORIDE 20 MG PO SCH ×2 (09:35→17:51)
[2021-10-02] MEDS: JENTADUETO PO SCH ×2 (09:36→17:50)
[2021-10-02] MEDS: TERAZOSIN 5 MG CAPSULE PO SCH (09:39)
[2021-10-02] MEDS: CARVEDILOL 25 MG TABLET PO SCH ×2 (10:47→17:48)
[2021-10-02] MEDS: hydrALAZINE HCL 50 MG TABLET PO SCH ×2 (13:50→17:48)
[2021-10-02] MEDS: AMLODIPINE 2.5 MG TABLET PO SCH (13:50)
--- NOTE | 2021-10-02 14:58 | NUR ---
INTERDISCIPLINARY TEAM CONFERENCE
[2021-10-02 16:00] VITALS: BP 137/63
[2021-10-02 20:00] VITALS: BP 128/70
[2021-10-02] MEDS: DOCUSATE SODIUM 100 MG CAPSULE PO SCH (20:31)
[2021-10-02] MEDS: ATORVASTATIN 10 MG TABLET PO SCH (20:31)
[2021-10-02] MEDS: INSULIN GLARGINE,HUM 300 UNITS/3 ML CARTRIDGE SQ SCH (20:38)
--- NOTE | 2021-10-02 21:56 | NUR ---
Received patient awake sitting on chair, daughter at bedside. Denies pain and discomfort at this time. Daughter translated pt feels tired d/t to PT done twice today. Due medications given on time, BS checked 133, Lantus given, tolerated well. Pt noted to be walking to the bathroom without difficulty. Walker at bedside. All needs attended. Call light placed within reach and encouraged to call for assistance. Safety precautions maintained. Will continue to monitor.
[2021-10-03 04:00] VITALS: BP 128/60
[2021-10-03] MEDS: PANTOPRAZOLE SODIUM 40 MG TABLET.DR PO SCH (06:20)
[2021-10-03] MEDS: NATEGLINIDE 60 MG TABLET PO SCH ×3 (06:38→16:44)
--- NOTE | 2021-10-03 06:50 | NUR ---
Pt slept throughout the night. No s/sx of pain and discomfort noted. BRP with walker. Due medications given on time and tolerated well. All needs attended. Call light placed within reach. Frequent visual checks done. Will endorse to next shift for continuity of care.
[2021-10-03 08:00] VITALS: BP 105/64
[2021-10-03] MEDS: FERROUS SULFATE 325 MG TABEC PO SCH (08:48)
[2021-10-03] MEDS: FOLIC ACID 1 MG TABLET PO SCH (08:49)
[2021-10-03] MEDS: FINASTERIDE 5 MG TABLET PO SCH (08:49)
[2021-10-03] MEDS: ASPIRIN 81 MG TAB.CHEW PO SCH (08:49)
[2021-10-03] MEDS: JENTADUETO PO SCH ×2 (08:51→17:03)
[2021-10-03] MEDS: CREON 24000 UNIT PO SCH ×3 (08:51→16:45)
[2021-10-03] MEDS: TROSPIUM CHLORIDE 20 MG PO SCH ×2 (08:51→16:50)
[2021-10-03] MEDS: CARVEDILOL 25 MG TABLET PO SCH ×2 (08:53→16:46)
[2021-10-03] MEDS: TERAZOSIN 5 MG CAPSULE PO SCH (08:53)
[2021-10-03] MEDS: hydrALAZINE HCL 50 MG TABLET PO SCH ×2 (08:53→16:47)
[2021-10-03] MEDS: AMLODIPINE 2.5 MG TABLET PO SCH (08:54)
[2021-10-03 15:15] VITALS: BP 123/60
--- NOTE | 2021-10-03 18:00 | NUR ---
Patient remains alert, not in any form of distress, on room air. He denies any pain or discomfort. Patient is compliant with medications and care. Patient participated with PT/OT and tolerated well. Call light and frequently used items placed within patient's reach. Dr. Goodwin in the unit, informed MD regarding BP on the low 100's in AM and held due BP meds. Per MD OK to hold BP med and said he will check into it and make adjustments to his medications. Will continue to monitor and will endorse accordingly.
[2021-10-03 20:05] VITALS: BP 123/57
[2021-10-03] MEDS: ATORVASTATIN 10 MG TABLET PO SCH (20:34)
[2021-10-03] MEDS: DOCUSATE SODIUM 100 MG CAPSULE PO SCH (20:35)
[2021-10-03] MEDS: INSULIN GLARGINE,HUM 300 UNITS/3 ML CARTRIDGE SQ SCH (21:00)
--- NOTE | 2021-10-03 23:41 | NUR ---
Received patient awake on bed with no respiratory distress noted. Denies pain and discomfort at this time. Due medications given on time except for Lantus d/t patient refusal, BS 79. BRP with walker at bedside. All needs attended. Call light placed within reach and encouraged to call for assistance. Safety precautions maintained. Will continue to monitor.
[2021-10-04 04:05] VITALS: BP 138/57
[2021-10-04] MEDS: PANTOPRAZOLE SODIUM 40 MG TABLET.DR PO SCH (06:00)
[2021-10-04] MEDS: NATEGLINIDE 60 MG TABLET PO SCH ×3 (06:33→16:33)
--- NOTE | 2021-10-04 06:49 | NUR ---
Pt slept throughout the night. No s/sx of pain and discomfort noted. BRP with walker. BS checked 157. Due medications given on time and tolerated well. All needs attended. Call light placed within reach. Frequent visual checks done. Will endorse to next shift for continuity of care.
[2021-10-04] MEDS: JENTADUETO PO SCH ×2 (07:59→17:50)
[2021-10-04] MEDS: ASPIRIN 81 MG TAB.CHEW PO SCH (08:02)
[2021-10-04] MEDS: TROSPIUM CHLORIDE 20 MG PO SCH ×2 (08:03→16:35)
[2021-10-04] MEDS: FINASTERIDE 5 MG TABLET PO SCH (08:03)
[2021-10-04] MEDS: CARVEDILOL 25 MG TABLET PO SCH ×2 (08:03→16:34)
[2021-10-04] MEDS: FERROUS SULFATE 325 MG TABEC PO SCH (08:03)
[2021-10-04] MEDS: FOLIC ACID 1 MG TABLET PO SCH (08:03)
[2021-10-04 08:04] VITALS: BP 130/59
[2021-10-04] MEDS: CREON 24000 UNIT PO SCH ×3 (08:04→17:50)
[2021-10-04] MEDS: AMLODIPINE 2.5 MG TABLET PO SCH (08:04)
[2021-10-04] MEDS: TERAZOSIN 5 MG CAPSULE PO SCH (08:06)
[2021-10-04 16:24] VITALS: BP 125/56
[2021-10-04 20:00] VITALS: BP 100/54
[2021-10-04] MEDS: DOCUSATE SODIUM 100 MG CAPSULE PO SCH (20:11)
[2021-10-04] MEDS: ATORVASTATIN 10 MG TABLET PO SCH (20:11)
[2021-10-04] MEDS: INSULIN GLARGINE,HUM 300 UNITS/3 ML CARTRIDGE SQ SCH (20:14)
--- NOTE | 2021-10-04 20:59 | NUR ---
Received pt resting in bed. Daughter was at bedside. AAO x3, forgetful at times. Angolan speaking, able to make needs known. No acute distress noted. Due meds given as ordered. Safety measures maintained. Call light and personal items within reach. Will continue to monitor.
[2021-10-05 04:00] VITALS: BP 120/51
[2021-10-05] MEDS: PANTOPRAZOLE SODIUM 40 MG TABLET.DR PO SCH (06:10)
[2021-10-05 08:10] VITALS: BP 118/60
[2021-10-05] MEDS: CARVEDILOL 25 MG TABLET PO SCH ×2 (09:27→16:49)
[2021-10-05] MEDS: AMLODIPINE 2.5 MG TABLET PO SCH (09:27)
[2021-10-05] MEDS: TERAZOSIN 5 MG CAPSULE PO SCH (09:27)
[2021-10-05] MEDS: FOLIC ACID 1 MG TABLET PO SCH (09:27)
[2021-10-05] MEDS: ASPIRIN 81 MG TAB.CHEW PO SCH (09:27)
[2021-10-05] MEDS: FERROUS SULFATE 325 MG TABEC PO SCH (09:28)
[2021-10-05] MEDS: JENTADUETO PO SCH ×2 (09:28→17:00)
[2021-10-05] MEDS: NATEGLINIDE 60 MG TABLET PO SCH ×3 (09:28→16:46)
[2021-10-05] MEDS: TROSPIUM CHLORIDE 20 MG PO SCH ×2 (09:29→16:47)
[2021-10-05] MEDS: CREON 24000 UNIT PO SCH ×3 (09:29→16:46)
[2021-10-05] MEDS: FINASTERIDE 5 MG TABLET PO SCH (09:30)
--- NOTE | 2021-10-05 11:00 | NUR ---
Notified Dr. Reyes about accucheck and stated that patient is still taking Starlix and Lantus. Dr. Reyes stated patient doesn't need an accucheck and that he DC the accucheck.
--- NOTE | 2021-10-05 12:00 | NUR ---
@0830 Patient sitting on the chair in his bedroom , comfortably watching TV. Denies of any pain . Patient in room air saturating at 95%. @ 1020 when asked , patient doesn't want to go back to bed and stated " IT WAS TOO EARLY". Placed call light within easy reach and stated that he needs to call us and use the call light whenever he is ready to go back to bed, patient verbalized understanding. Provide frequent visual observation for safety. All due meds given per MD order.
[2021-10-05 15:02] VITALS: BP 118/68
[2021-10-05 20:09] VITALS: BP 121/66
[2021-10-05] MEDS: DOCUSATE SODIUM 100 MG CAPSULE PO SCH (20:18)
[2021-10-05] MEDS: ATORVASTATIN 10 MG TABLET PO SCH (20:18)
[2021-10-05] MEDS: INSULIN GLARGINE,HUM 300 UNITS/3 ML CARTRIDGE SQ SCH (20:19)
--- NOTE | 2021-10-05 20:48 | NUR ---
Received pt resting in bed. AAO x3, forgetful at times. Gibraltarian speaking, able to make needs known. No acute distress noted. Due meds given as ordered. Safety measures maintained. Call light and personal items within reach. Will continue to monitor.
[2021-10-06 04:33] VITALS: BP 150/71
[2021-10-06] MEDS: PANTOPRAZOLE SODIUM 40 MG TABLET.DR PO SCH (06:24)
[2021-10-06 08:00] VITALS: BP 118/66
[2021-10-06] MEDS: JENTADUETO PO SCH ×2 (08:32→17:02)
[2021-10-06] MEDS: ASPIRIN 81 MG TAB.CHEW PO SCH (08:32)
[2021-10-06] MEDS: NATEGLINIDE 60 MG TABLET PO SCH ×3 (08:32→17:01)
[2021-10-06] MEDS: FINASTERIDE 5 MG TABLET PO SCH (08:32)
[2021-10-06] MEDS: CARVEDILOL 25 MG TABLET PO SCH ×2 (08:33→17:00)
[2021-10-06] MEDS: FERROUS SULFATE 325 MG TABEC PO SCH (08:33)
[2021-10-06] MEDS: FOLIC ACID 1 MG TABLET PO SCH (08:33)
[2021-10-06] MEDS: AMLODIPINE 2.5 MG TABLET PO SCH (08:33)
[2021-10-06] MEDS: CREON 24000 UNIT PO SCH ×3 (08:34→17:01)
[2021-10-06] MEDS: TERAZOSIN 5 MG CAPSULE PO SCH (08:34)
[2021-10-06] MEDS: TROSPIUM CHLORIDE 20 MG PO SCH ×2 (08:34→17:01)
--- NOTE | 2021-10-06 09:43 | NUR ---
Received patient alert and oriented x 3 with periods of forgetfulness, cooperative and calm upon assessment, all due meds given per MD order and tolerated well. Patient wanted to sit on the chair b y the bed. Assisted patient to sit on the chair and was comfortably watching TV. Placed call light within easy reach and reminded him to press the call light if he needs to go back to bed and needs help with anything. Patient verbalized understanding. Provide frequent visual observation for safety.
[2021-10-06 16:00] VITALS: BP 131/63
[2021-10-06 17:04] VITALS: BP 132/66
[2021-10-06] MEDS: ATORVASTATIN 10 MG TABLET PO SCH (20:18)
[2021-10-06] MEDS: DOCUSATE SODIUM 100 MG CAPSULE PO SCH (20:18)
[2021-10-06] MEDS: INSULIN GLARGINE,HUM 300 UNITS/3 ML CARTRIDGE SQ SCH (20:20)
[2021-10-06 20:38] VITALS: BP 99/48
--- NOTE | 2021-10-06 22:52 | NUR ---
Received pt sleeping in bed. Aroused easily to verbal stimuli. AAO x3, forgetful at times. Swazi speaking, able to make needs known. No acute distress noted. Due meds given as ordered. Assisted to the bathroom. Safety measures maintained. Call light and personal items within reach. Will continue to monitor.
[2021-10-07 04:32] VITALS: BP 117/63
[2021-10-07] MEDS: PANTOPRAZOLE SODIUM 40 MG TABLET.DR PO SCH (07:07)
[2021-10-07 07:30] VITALS: BP 123/65
[2021-10-07] MEDS: ASPIRIN 81 MG TAB.CHEW PO SCH (08:24)
[2021-10-07] MEDS: TERAZOSIN 5 MG CAPSULE PO SCH (08:25)
[2021-10-07] MEDS: FOLIC ACID 1 MG TABLET PO SCH (08:26)
[2021-10-07] MEDS: FERROUS SULFATE 325 MG TABEC PO SCH (08:26)
[2021-10-07] MEDS: FINASTERIDE 5 MG TABLET PO SCH (08:26)
[2021-10-07] MEDS: CARVEDILOL 25 MG TABLET PO SCH ×2 (08:26→17:04)
[2021-10-07] MEDS: NATEGLINIDE 60 MG TABLET PO SCH ×3 (08:27→16:47)
[2021-10-07] MEDS: AMLODIPINE 2.5 MG TABLET PO SCH (08:27)
[2021-10-07] MEDS: CREON 24000 UNIT PO SCH ×3 (08:28→16:48)
[2021-10-07] MEDS: TROSPIUM CHLORIDE 20 MG PO SCH ×2 (08:28→17:03)
[2021-10-07] MEDS: JENTADUETO PO SCH ×2 (08:28→17:03)
[2021-10-07 15:19] VITALS: BP 121/62
[2021-10-07 20:54] VITALS: BP 101/40
--- NOTE | 2021-10-07 21:00 | NUR ---
Received patient in his room in bed watching TV. he is noted A/O x 2 in no distress. He is calm and pleasant upon approached. He Zambian speaker; however, he understand some Jordanian. V/s stable. Accu checks QHS is 181. Lantus 25units were given. Safety and fall precautions are in place. Call light and personal items are within reach. Will continue to monitor
[2021-10-07] MEDS: DOCUSATE SODIUM 100 MG CAPSULE PO SCH (21:50)
[2021-10-07] MEDS: INSULIN GLARGINE,HUM 300 UNITS/3 ML CARTRIDGE SQ SCH (21:52)
[2021-10-08 04:20] VITALS: BP 126/70
[2021-10-08] MEDS: PANTOPRAZOLE SODIUM 40 MG TABLET.DR PO SCH (06:30)
[2021-10-08] MEDS: NATEGLINIDE 60 MG TABLET PO SCH ×3 (06:30→16:52)
[2021-10-08 07:03] LABS: HEMATOCRIT 40.2 % (36.7-47.1); MEAN CORPUSCULAR HEMOGLOBIN 30.7 uug (23.8-33.4); MEAN CORPUSCULAR VOLUME 92.5 fL (73.0-96.2); PLATELET COUNT (AUTO) 291 K/uL (152-348)
[2021-10-08 07:20] LABS: BILIRUBIN,TOTAL 0.4 mg/dL (0.2-1.0); CREATININE 1.3 mg/dL (0.6-1.3); MAGNESIUM 2.1 mg/dL (1.8-2.4); PHOSPHOROUS 3.9 mg/dL (2.5-4.9); POTASSIUM 4.3 mmol/L (3.5-5.1); TOTAL PROTEIN, SERUM 6.9 g/dL (6.4-8.2)
[2021-10-08 07:42] VITALS: BP 121/61
[2021-10-08] MEDS: TERAZOSIN 5 MG CAPSULE PO SCH (09:00)
[2021-10-08] MEDS: CARVEDILOL 25 MG TABLET PO SCH ×2 (09:00→16:52)
[2021-10-08] MEDS: AMLODIPINE 2.5 MG TABLET PO SCH (09:00)
[2021-10-08] MEDS: FOLIC ACID 1 MG TABLET PO SCH (09:05)
[2021-10-08] MEDS: FINASTERIDE 5 MG TABLET PO SCH (09:05)
[2021-10-08] MEDS: FENOFIBRATE NANOCRYSTALLIZED 145 MG TABLET PO SCH (09:05)
[2021-10-08] MEDS: ASPIRIN 81 MG TAB.CHEW PO SCH (09:05)
[2021-10-08] MEDS: FERROUS SULFATE 325 MG TABEC PO SCH (09:05)
[2021-10-08] MEDS: TROSPIUM CHLORIDE 20 MG PO SCH ×2 (09:06→16:53)
[2021-10-08] MEDS: CREON 24000 UNIT PO SCH ×3 (09:06→16:53)
[2021-10-08] MEDS: JENTADUETO PO SCH ×2 (09:06→16:55)
[2021-10-08 15:58] VITALS: BP 120/61
--- NOTE | 2021-10-08 18:26 | NUR ---
Pleasant and cooperative throughout shift. VSS. No c/o of pain/discomfort verbalized. Safety measures maintained. Call light within reach. Will endorse accordingly.
--- NOTE | 2021-10-08 20:00 | NUR ---
AWAKE SPEAKS PALAUAN.WANTED DOOR CLOSED, ALERT,ACCUCHECK DONE 103 SNACKS GIVEN, LANTUS GIVEN
[2021-10-08 20:24] VITALS: BP 121/58
[2021-10-08] MEDS: DOCUSATE SODIUM 100 MG CAPSULE PO SCH (20:57)
[2021-10-08] MEDS: INSULIN GLARGINE,HUM 300 UNITS/3 ML CARTRIDGE SQ SCH (21:07)
--- NOTE | 2021-10-08 22:00 | NUR ---
PICTURES TAKEN,SEEMS IRRITATED,NAMES IN THE PICTURE UNABLE TO READ, WANTED TO REPEAT, DOESNT LIKE ANYMORE.PATIENT MAKE COMFORTABLE,
[2021-10-09 05:15] VITALS: BP 123/61
[2021-10-09] MEDS: PANTOPRAZOLE SODIUM 40 MG TABLET.DR PO SCH (06:25)
--- NOTE | 2021-10-09 06:56 | NUR ---
ACCLOGAN 104, SLEPT MOST OF THE NURSE.
[2021-10-09 08:00] VITALS: BP 124/55
[2021-10-09] MEDS: ASPIRIN 81 MG TAB.CHEW PO SCH (08:08)
[2021-10-09] MEDS: FOLIC ACID 1 MG TABLET PO SCH (08:08)
[2021-10-09] MEDS: FENOFIBRATE NANOCRYSTALLIZED 145 MG TABLET PO SCH (08:08)
[2021-10-09] MEDS: FERROUS SULFATE 325 MG TABEC PO SCH (08:09)
[2021-10-09] MEDS: TERAZOSIN 5 MG CAPSULE PO SCH (08:09)
[2021-10-09] MEDS: FINASTERIDE 5 MG TABLET PO SCH (08:10)
[2021-10-09] MEDS: AMLODIPINE 2.5 MG TABLET PO SCH (08:10)
[2021-10-09] MEDS: CARVEDILOL 25 MG TABLET PO SCH ×2 (08:10→16:26)
[2021-10-09] MEDS: JENTADUETO PO SCH ×2 (08:11→17:10)
[2021-10-09] MEDS: TROSPIUM CHLORIDE 20 MG PO SCH ×2 (08:11→16:29)
[2021-10-09] MEDS: NATEGLINIDE 60 MG TABLET PO SCH ×3 (08:11→16:26)
[2021-10-09] MEDS: CREON 24000 UNIT PO SCH ×3 (08:12→16:27)
--- NOTE | 2021-10-09 11:00 | NUR ---
Received patient in his room sitting on the chair watching TV. he is A A/O x 2 in no distress noted Albanian Speaking with little Somali words. He is calm and pleasant upon approached. he understand some Somali. V/s stable meds given as order. Safety and fall precautions are in place. Call light and personal items are within reach. Will continue to monitor closely
[2021-10-09 12:13] VITALS: BP 101/51
--- NOTE | 2021-10-09 13:54 | NUR ---
INTERDISCIPLINARY TEAM CONFERENCE
[2021-10-09 16:08] VITALS: BP 118/50
--- NOTE | 2021-10-09 18:21 | NUR ---
patient remain awake, alert and oriented and able to make needs known, patient is Palauan speaking,able to understand some Anguillan . patient reminded to call for assistance, pleasant, calm all due meds given. v/s wnl at this time, no c/o pain. side rails up x2, call light at reach bed in low position. will monitor closely for safety.
[2021-10-09 20:00] VITALS: BP 130/64
[2021-10-09] MEDS: DOCUSATE SODIUM 100 MG CAPSULE PO SCH (20:12)
[2021-10-09] MEDS: INSULIN GLARGINE,HUM 300 UNITS/3 ML CARTRIDGE SQ SCH (20:16)
--- NOTE | 2021-10-10 04:49 | NUR ---
Quiet night. AAOx4 Speaks Malagasy only but was able to make needs known. Ambulates to the BR. Voiding well. Denies any pain nor any discomfort. Will monitor patient. Fall precautions maintained. Siderails up for safety.
[2021-10-10] MEDS: PANTOPRAZOLE SODIUM 40 MG TABLET.DR PO SCH (06:12)
[2021-10-10] MEDS: NATEGLINIDE 60 MG TABLET PO SCH ×3 (06:31→16:45)
--- NOTE | 2021-10-10 07:45 | NUR ---
patient remain awake, alert and oriented X 3 and able to make needs known, patient is Costa Rican speaking,able to understand some Wallisian . patient reminded to call for assistance, pleasant, calm. v/s wnl at this time, no c/o pain. Pt up sitting on the chair, call light at reach bed in low position. will monitor closely for safety.
[2021-10-10 08:00] VITALS: BP 121/56
[2021-10-10] MEDS: CARVEDILOL 25 MG TABLET PO SCH ×2 (08:35→16:46)
[2021-10-10] MEDS: JENTADUETO PO SCH ×2 (08:35→17:04)
[2021-10-10] MEDS: ASPIRIN 81 MG TAB.CHEW PO SCH (08:35)
[2021-10-10] MEDS: TERAZOSIN 5 MG CAPSULE PO SCH (08:36)
[2021-10-10] MEDS: FERROUS SULFATE 325 MG TABEC PO SCH (08:36)
[2021-10-10] MEDS: FINASTERIDE 5 MG TABLET PO SCH (08:36)
[2021-10-10] MEDS: FENOFIBRATE NANOCRYSTALLIZED 145 MG TABLET PO SCH (08:36)
[2021-10-10] MEDS: AMLODIPINE 2.5 MG TABLET PO SCH (08:36)
[2021-10-10] MEDS: FOLIC ACID 1 MG TABLET PO SCH (08:36)
[2021-10-10] MEDS: CREON 24000 UNIT PO SCH ×3 (08:41→16:46)
[2021-10-10] MEDS: TROSPIUM CHLORIDE 20 MG PO SCH ×2 (08:42→16:47)
[2021-10-10 16:11] VITALS: BP 120/52
--- NOTE | 2021-10-10 18:24 | NUR ---
Patient remain awake, alert and oriented X 3 and able to make needs known, Togolese speaking,able to understand some Serbian . ambulatory used BR pleasant, calm. v/s WNL at this time, no c/o pain. Pt up sitting on the chair for meals, call light at reach bed in low position. will monitor closely for comfort and safety.
[2021-10-10 20:20] VITALS: BP 114/58
[2021-10-10] MEDS: DOCUSATE SODIUM 100 MG CAPSULE PO SCH (20:45)
[2021-10-10] MEDS: INSULIN GLARGINE,HUM 300 UNITS/3 ML CARTRIDGE SQ SCH (20:53)
--- NOTE | 2021-10-10 20:55 | NUR ---
BS 98mg/dl, Lantus insulin 24 units not given at this time.
[2021-10-11 04:15] VITALS: BP 120/60
[2021-10-11] MEDS: PANTOPRAZOLE SODIUM 40 MG TABLET.DR PO SCH (05:56)
[2021-10-11] MEDS: NATEGLINIDE 60 MG TABLET PO SCH ×2 (05:57→12:17)
[2021-10-11 08:00] VITALS: BP 117/60
[2021-10-11] MEDS: JENTADUETO PO SCH (08:42)
[2021-10-11] MEDS: FINASTERIDE 5 MG TABLET PO SCH (08:42)
[2021-10-11] MEDS: CREON 24000 UNIT PO SCH ×2 (08:42→12:18)
[2021-10-11] MEDS: TROSPIUM CHLORIDE 20 MG PO SCH (08:42)
[2021-10-11] MEDS: ASPIRIN 81 MG TAB.CHEW PO SCH (08:42)
[2021-10-11] MEDS: FOLIC ACID 1 MG TABLET PO SCH (08:43)
[2021-10-11] MEDS: FERROUS SULFATE 325 MG TABEC PO SCH (08:43)
[2021-10-11] MEDS: FENOFIBRATE NANOCRYSTALLIZED 145 MG TABLET PO SCH (08:43)
[2021-10-11] MEDS: CARVEDILOL 25 MG TABLET PO SCH (08:44)
[2021-10-11] MEDS: TERAZOSIN 5 MG CAPSULE PO SCH (08:44)
[2021-10-11 08:45] VITALS: BP 117/60
[2021-10-11] MEDS: AMLODIPINE 2.5 MG TABLET PO SCH (08:45)
--- NOTE | 2021-10-11 14:16 | NUR ---
patient discharged home with daughter, ambulatoiry, patient is alert, oriented with some episodes of forgetfullness, stable condition, no skin issues, no IV access, ID rmoved, belongwilian accounted and signed, home meds sent home with patient, educations provided aboiut medications to patient and daughter, daughter translated, verbalized understanding of it.
== END 2021-10-11 14:00 | disposition home health service (06) | DRG 190 ==
PROVIDERS: ADMIT Physical Medicine & Rehabilitation Pain Medicine; ATTEND Physical Medicine & Rehabilitation Pain Medicine
DX: J43.9 Emphysema, unspecified (principal); G93.41 Metabolic encephalopathy; N17.0 Acute kidney failure with tubular necrosis; I13.0 Hypertensive heart and chronic kidney disease with heart failure and stage 1 through stage 4 chronic kidney disease, or unspecified chronic kidney disease; D68.59 Other primary thrombophilia; J84.9 Interstitial pulmonary disease, unspecified; R09.02 Hypoxemia; R53.1 Weakness; E11.22 Type 2 diabetes mellitus with diabetic chronic kidney disease; E11.65 Type 2 diabetes mellitus with hyperglycemia; I50.9 Heart failure, unspecified; G89.29 Other chronic pain; N18.9 Chronic kidney disease, unspecified; E61.1 Iron deficiency; E66.9 Obesity, unspecified; Z68.32 Body mass index [BMI] 32.0-32.9, adult; E78.5 Hyperlipidemia, unspecified; K21.9 Gastro-esophageal reflux disease without esophagitis; N40.0 Benign prostatic hyperplasia without lower urinary tract symptoms; Z87.891 Personal history of nicotine dependence
CPT/HCPCS: 36415; 83735; 84100; 84443; 85025; 97161; A4663; J1815

== ENCOUNTER 2022-08-18 11:15 | Inpatient (IN) | payer MEDICARE, OTHER ==
[~2022-08-18] VITALS: Ht 167.6 cm; Wt 86.2 kg
[~2022-08-18 11:15] MED LIST changes: +AMYL1CAP58 PO; -ASPI-869 PO; +ASPI81TA31 PO; -ATOR10TA PO; +CICL6.6S5 TP; -ENOX40DI SQ; -HYDR-3972 PO; +INSU100I19 SQ; -INSU100V28 SQ; +LINA1TAB3 PO; -LIPA1CAP27 PO; +MIRA25TA PO; +OMEP20CA15 PO; -PANT40TA2 PO; +ROSU5TAB PO; +TROS20TA3 PO
[2022-08-18] MEDS ORDERED: IV NORMAL SALINE 500 ML BAG IV ONE ×2 (11:30→14:45)
[2022-08-18 11:55] LABS: HEMATOCRIT 38.6 % (36.7-47.1); MEAN CORPUSCULAR HEMOGLOBIN 30.8 uug (23.8-33.4); PLATELET COUNT (AUTO) 143 K/uL (152-348)
[2022-08-18] MEDS ORDERED: ACETAMINOPHEN 325 MG TABLET PO ONE (12:00)
[2022-08-18] MEDS ORDERED: CEFEPIME HCL 1 G in IV DEXTROSE 5% 50 ML IV ONE (12:00)
[2022-08-18] MEDS ORDERED: VANCOMYCIN IV 200 ML ONE ×2 (12:00→17:10)
[2022-08-18] MEDS ORDERED: VANCOMYCIN IV 1,000 MG in IV DEXTROSE 5% 250 ML IV ONE (12:00)
[2022-08-18] MEDS ORDERED: ACETAMINOPHEN 325 MG TABLET ONE (12:01)
[2022-08-18] MEDS ORDERED: ROSU5TAB PO (12:26)
[2022-08-18] MEDS ORDERED: ASPI81TA31 PO (12:26)
[2022-08-18] MEDS ORDERED: FURO-151 PO (12:26)
[2022-08-18] MEDS ORDERED: CARV25TA2 PO (12:26)
[2022-08-18] MEDS ORDERED: AMYL1CAP58 PO (12:26)
[2022-08-18] MEDS ORDERED: METH2.5T PO (12:26)
[2022-08-18] MEDS ORDERED: NITR100C11 PO (12:26)
[2022-08-18] MEDS ORDERED: LINA1TAB PO (12:26)
[2022-08-18] MEDS ORDERED: [UNRECOGNIZED DRUG - OTHER] PO (12:26)
[2022-08-18] MEDS ORDERED: FERR325T30 PO (12:26)
[2022-08-18] MEDS ORDERED: TERA10CA4 PO (12:26)
[2022-08-18] MEDS ORDERED: MV-M1TAB18 PO (12:26)
[2022-08-18] MEDS ORDERED: FOLI1TAB94 PO (12:26)
[2022-08-18] MEDS ORDERED: FINA5TAB11 PO (12:26)
[2022-08-18] MEDS ORDERED: OMEP20CA15 PO (12:26)
[2022-08-18] MEDS ORDERED: MIRA25TA PO (12:26)
[2022-08-18] MEDS ORDERED: HYDR-4077 PO (12:26)
[2022-08-18 13:03] LABS: ALANINE AMINOTRANSFERASE 8 U/L (16-63); ALKALINE PHOSPHATASE 99 U/L (50-136); ASPARTATE AMINOTRANSFERASE 40 U/L (15-37); BILIRUBIN,DIRECT 0.2 mg/dL (0.0-0.2); BILIRUBIN,TOTAL 0.6 mg/dL (0.2-1.0); CARBON DIOXIDE 23 mmol/L (21-32); CHLORIDE 98 mmol/L (98-107); GLUCOSE 174 mg/dL (74-106); POTASSIUM 4.1 mmol/L (3.5-5.1); TOTAL PROTEIN, SERUM 5.9 g/dL (6.4-8.2); UREA NITROGEN, BLOOD 26 mg/dL (7-18)
[2022-08-18 14:17] LABS: *BLOOD, URINE NEGATIVE (NEGATIVE); *CLARITY,URINE CLEAR (CLEAR); *COLOR,URINE AMBER (YELLOW); *KETONES,URINE TRACE (NEGATIVE); LEUKOCYTE ESTERASE ,URINE NEGATIVE (NEGATIVE); NITRITE, URINE NEGATIVE (NEGATIVE); PH,URINE 5.5 (5.0-8.0); UGLUCOSE NEGATIVE (NEGATIVE)
[2022-08-18 14:25] LABS: *BILIRUBIN,URIN 1+ (NEGATIVE)
[2022-08-18 14:28] LABS: BACTERIA,URINE MANY /HPF (NONE SEEN); RBC,URINE NONE SEEN /HPF (0-3); SQUAMOUS EPITHELIAL CELL,UR FEW /HPF (NONE SEEN); WBC,URINE 0-3 /HPF (0-3)
[2022-08-18 14:29] LABS: URINE AMORPHOUS URATE FEW /HPF
[2022-08-18 14:37] LABS: LYMPHOCYTES % (MANUAL) 10 % (20-40); MONOCYTES % (MANUAL) 13 % (2-10); NEUTROPHILS % (MANUAL) 77 % (42-75)
[2022-08-18] MEDS ORDERED: hydrALAZINE HCL 20 MG/1 ML VIAL IV PRN (16:30)
[2022-08-18] MEDS ORDERED: ONDANSETRON 4 MG/2 ML VIAL IV PRN (16:30)
[2022-08-18] MEDS ORDERED: IV NS 1000 ML 1,000 ML IV ONE (16:30)
[2022-08-18] MEDS ORDERED: VANCOMYCIN IV 1,000 MG in IV DEXTROSE 5% 250 ML IV SCH (16:30)
[2022-08-18] MEDS ORDERED: MORPHINE SULFATE 2 MG/1 ML DISP.SYRIN IV PRN (16:30)
[2022-08-18] MEDS ORDERED: ALBUTEROL SULFATE 8 GM HFA.AER.AD IH PRN (16:30)
[2022-08-18] MEDS ORDERED: HEPARIN SODIUM,PORCINE 5,000 UNITS/ML VIAL ONE (17:10)
[2022-08-18] MEDS ORDERED: ALBUTEROL SULFATE 2.5 MG/3 ML NEBU NEB PRN (17:30)
[2022-08-18] MEDS: HEPARIN SODIUM,PORCINE 5,000 UNITS/ML VIAL SQ SCH (17:40)
[2022-08-18] MEDS ORDERED: DEXTROSE 50% 50 ML DISP.SYRIN IV PRN (18:45)
[2022-08-18] MEDS ORDERED: OMEG1CAP55 PO (19:10)
[2022-08-18] MEDS ORDERED: LINA145C PO (19:10)
[2022-08-18] MEDS: INSULIN GLARGINE,HUM 300 UNITS/3 ML CARTRIDGE SQ SCH (21:00)
[2022-08-18 21:03] VITALS: BP 115/67
[2022-08-18] MEDS: BLOOD SUGAR DIAGNOSTIC 1 EACH STRIP VI SCH ×2 (21:20→21:24)
[2022-08-18] MEDS: ATORVASTATIN 10 MG TABLET PO SCH (21:21)
[2022-08-18] MEDS: ACETAMINOPHEN 325 MG TABLET PO PRN (21:21)
[2022-08-18] MEDS: TERAZOSIN 5 MG CAPSULE PO SCH (21:21)
[2022-08-18] MEDS: hydrALAZINE HCL 50 MG TABLET PO SCH (21:22)
[2022-08-18] MEDS: INSULIN REGULAR, HUMAN 300 UNITS/3 ML VIAL SQ PRN (21:23)
[2022-08-18] MEDS: CARVEDILOL 25 MG TABLET PO SCH (21:24)
[2022-08-18] MEDS ORDERED: CEFEPIME HCL 1 G in IV DEXTROSE 5% 50 ML IV SCH (22:00)
[2022-08-19] VITALS: BP 99/57
[2022-08-19 04:00] VITALS: BP 149/61
[2022-08-19] MEDS: PANTOPRAZOLE SODIUM 40 MG TABLET.DR PO SCH (06:12)
[2022-08-19] MEDS: BLOOD SUGAR DIAGNOSTIC 1 EACH STRIP VI SCH ×4 (06:12→21:42)
[2022-08-19 06:54] LABS: HEMATOCRIT 36.3 % (36.7-47.1); MEAN CORPUSCULAR HEMOGLOBIN 31.1 uug (23.8-33.4); MEAN CORPUSCULAR VOLUME 92.2 fL (73.0-96.2); PLATELET COUNT (AUTO) 118 K/uL (152-348)
[2022-08-19 07:27] LABS: ALANINE AMINOTRANSFERASE 9 U/L (16-63); ALKALINE PHOSPHATASE 106 U/L (50-136); ASPARTATE AMINOTRANSFERASE 37 U/L (15-37); BILIRUBIN,TOTAL 0.6 mg/dL (0.2-1.0); CARBON DIOXIDE 24 mmol/L (21-32); CHLORIDE 100 mmol/L (98-107); CREATININE 1.7 mg/dL (0.6-1.3); GLUCOSE 196 mg/dL (74-106); PHOSPHOROUS 3.6 mg/dL (2.5-4.9); POTASSIUM 4.1 mmol/L (3.5-5.1); TOTAL PROTEIN, SERUM 5.5 g/dL (6.4-8.2); UREA NITROGEN, BLOOD 29 mg/dL (7-18)
[2022-08-19] MEDS: INSULIN GLARGINE,HUM 300 UNITS/3 ML CARTRIDGE SQ SCH ×2 (09:00→21:42)
[2022-08-19] MEDS ORDERED: AMLODIPINE 2.5 MG TABLET PO SCH (09:00)
[2022-08-19] MEDS ORDERED: Medication Not On Formulary EA (Omeprazole 1 CAP) PO SCH (09:00)
[2022-08-19] MEDS ORDERED: Medication Not On Formulary EA (Amylase/Lipase/Protease (Creon Dr 24,000 Units Capsule) PO SCH (09:00)
[2022-08-19] MEDS ORDERED: MYRBETRIQ 25 MG PO SCH (09:00)
[2022-08-19] MEDS: hydrALAZINE HCL 50 MG TABLET PO SCH ×2 (09:00→21:28)
[2022-08-19] MEDS ORDERED: Medication Not On Formulary EA (Rosuvastatin Calcium (Crestor) 1 TAB) PO SCH (09:00)
[2022-08-19] MEDS: LIPASE/PROTEASE/AMYLASE 4200 UNITS CAPSULE.DR PO SCH ×3 (09:12→17:53)
[2022-08-19] MEDS: FLUTICASONE/VILANTEROL 1 EACH BLST.W.DEV INH SCH (09:12)
[2022-08-19] MEDS: ALLOPURINOL 100 MG TABLET PO SCH (09:13)
[2022-08-19] MEDS: FERROUS SULFATE 325 MG TABEC PO SCH (09:13)
[2022-08-19] MEDS: FOLIC ACID 1 MG TABLET PO SCH (09:13)
[2022-08-19] MEDS: ASPIRIN 81 MG TAB.CHEW PO SCH (09:13)
[2022-08-19] MEDS: FUROSEMIDE 40 MG TABLET PO SCH (09:13)
[2022-08-19] MEDS: FINASTERIDE 5 MG TABLET PO SCH (09:14)
[2022-08-19] MEDS: CARVEDILOL 25 MG TABLET PO SCH ×2 (09:14→21:27)
[2022-08-19] MEDS: HEPARIN SODIUM,PORCINE 5,000 UNITS/ML VIAL SQ SCH ×2 (09:15→17:53)
[2022-08-19] MEDS: CEFEPIME HCL 2 G in IV DEXTROSE 5% 100 ML IV SCH ×2 (09:33→22:09)
[2022-08-19 12:00] VITALS: BP 109/54
[2022-08-19] MEDS ORDERED: CEFEPIME HCL 1 G in IV DEXTROSE 5% 50 ML IV SCH (12:00)
[2022-08-19 12:51] LABS: BAND % (MANUAL) 1 % (0-10); EOSINOPHILS % (MANUAL) 2 % (0-8); LYMPHOCYTES % (MANUAL) 7 % (20-40); MONOCYTES % (MANUAL) 13 % (2-10); NEUTROPHILS % (MANUAL) 77 % (42-75)
[2022-08-19] MEDS: INSULIN REGULAR, HUMAN 300 UNIT/3 ML VIAL SQ PRN (13:06)
[2022-08-19] MEDS: VANCOMYCIN IV 1,000 MG in IV DEXTROSE 5% 250 ML IV SCH (15:17)
[2022-08-19 16:00] VITALS: BP 129/61
[2022-08-19] MEDS ORDERED: VANCOMYCIN IV 750 MG in IV DEXTROSE 5% 250 ML IV SCH (16:00)
[2022-08-19 20:00] VITALS: BP 128/47
[2022-08-19] MEDS: ACETAMINOPHEN 325 MG TABLET PO PRN (21:27)
[2022-08-19] MEDS: TERAZOSIN 5 MG CAPSULE PO SCH (21:28)
[2022-08-19] MEDS: ATORVASTATIN 10 MG TABLET PO SCH (21:28)
[2022-08-19] MEDS: INSULIN REGULAR, HUMAN 300 UNITS/3 ML VIAL SQ PRN (21:43)
[2022-08-20] VITALS: BP 126/50
[2022-08-20 06:32] LABS: HEMATOCRIT 35.9 % (36.7-47.1); MEAN CORPUSCULAR HEMOGLOBIN 31.2 uug (23.8-33.4); MEAN CORPUSCULAR VOLUME 90.8 fL (73.0-96.2); PLATELET COUNT (AUTO) 113 K/uL (152-348)
[2022-08-20 07:00] LABS: CARBON DIOXIDE 25 mmol/L (21-32); CHLORIDE 102 mmol/L (98-107); CREATININE 1.8 mg/dL (0.6-1.3); GLUCOSE 245 mg/dL (74-106); MAGNESIUM 1.7 mg/dL (1.8-2.4); PHOSPHOROUS 3.8 mg/dL (2.5-4.9); POTASSIUM 4.3 mmol/L (3.5-5.1); UREA NITROGEN, BLOOD 33 mg/dL (7-18)
[2022-08-20] MEDS: PANTOPRAZOLE SODIUM 40 MG TABLET.DR PO SCH (07:00)
[2022-08-20] MEDS: BLOOD SUGAR DIAGNOSTIC 1 EACH STRIP VI SCH ×4 (08:00→20:49)
[2022-08-20] MEDS: LIPASE/PROTEASE/AMYLASE 4200 UNITS CAPSULE.DR PO SCH ×3 (08:47→16:57)
[2022-08-20] MEDS: FLUTICASONE/VILANTEROL 1 EACH BLST.W.DEV INH SCH (08:48)
[2022-08-20] MEDS: FOLIC ACID 1 MG TABLET PO SCH (08:50)
[2022-08-20] MEDS: MYRBETRIQ 25 MG PO SCH (08:50)
[2022-08-20] MEDS: ALLOPURINOL 100 MG TABLET PO SCH (08:50)
[2022-08-20] MEDS: FINASTERIDE 5 MG TABLET PO SCH (08:50)
[2022-08-20] MEDS: [UNRECOGNIZED DRUG - OTHER] PO SCH (08:50)
[2022-08-20] MEDS: FERROUS SULFATE 325 MG TABEC PO SCH (08:50)
[2022-08-20] MEDS: FUROSEMIDE 40 MG TABLET PO SCH (08:50)
[2022-08-20] MEDS: ASPIRIN 81 MG TAB.CHEW PO SCH (08:50)
[2022-08-20] MEDS: CARVEDILOL 25 MG TABLET PO SCH ×2 (08:53→20:39)
[2022-08-20] MEDS: INSULIN REGULAR, HUMAN 300 UNIT/3 ML VIAL SQ PRN ×2 (08:58→12:24)
[2022-08-20] MEDS: INSULIN GLARGINE,HUM 300 UNITS/3 ML CARTRIDGE SQ SCH ×2 (08:59→20:54)
[2022-08-20] MEDS: hydrALAZINE HCL 50 MG TABLET PO SCH (09:00)
[2022-08-20] MEDS: CEFEPIME HCL 2 G in IV DEXTROSE 5% 100 ML IV SCH ×2 (10:19→21:21)
[2022-08-20] MEDS: HEPARIN SODIUM,PORCINE 5,000 UNITS/ML VIAL SQ SCH ×2 (10:28→16:58)
[2022-08-20 11:10] VITALS: BP 118/58
[2022-08-20] MEDS: MAGNESIUM SULFATE/D5W 100 ML IV SCH ×2 (11:26→12:26)
[2022-08-20 12:58] LABS: LYMPHOCYTES % (MANUAL) 10 % (20-40); MONOCYTES % (MANUAL) 13 % (2-10); NEUTROPHILS % (MANUAL) 77 % (42-75)
[2022-08-20] MEDS: VANCOMYCIN IV 1,000 MG in IV DEXTROSE 5% 250 ML IV SCH (15:49)
[2022-08-20 16:06] VITALS: BP 117/63
[2022-08-20 19:52] VITALS: BP 109/74
[2022-08-20] MEDS: ATORVASTATIN 10 MG TABLET PO SCH (20:39)
[2022-08-20] MEDS: TERAZOSIN 5 MG CAPSULE PO SCH (20:39)
[2022-08-20] MEDS: INSULIN REGULAR, HUMAN 300 UNITS/3 ML VIAL SQ PRN (20:53)
[2022-08-21 00:15] VITALS: BP 106/59
[2022-08-21 04:50] VITALS: BP 110/58
[2022-08-21] MEDS: PANTOPRAZOLE SODIUM 40 MG TABLET.DR PO SCH (06:19)
[2022-08-21 06:25] LABS: HEMATOCRIT 33.5 % (36.7-47.1); MEAN CORPUSCULAR HEMOGLOBIN 30.9 uug (23.8-33.4); MEAN CORPUSCULAR VOLUME 90.4 fL (73.0-96.2); PLATELET COUNT (AUTO) 110 K/uL (152-348)
[2022-08-21] MEDS: BLOOD SUGAR DIAGNOSTIC 1 EACH STRIP VI SCH ×4 (06:32→20:58)
[2022-08-21 06:57] LABS: CARBON DIOXIDE 24 mmol/L (21-32); CHLORIDE 102 mmol/L (98-107); CREATININE 2.1 mg/dL (0.6-1.3); GLUCOSE 176 mg/dL (74-106); MAGNESIUM 2.1 mg/dL (1.8-2.4); PHOSPHOROUS 3.2 mg/dL (2.5-4.9); POTASSIUM 3.9 mmol/L (3.5-5.1); UREA NITROGEN, BLOOD 40 mg/dL (7-18)
[2022-08-21] MEDS: FOLIC ACID 1 MG TABLET PO SCH (08:44)
[2022-08-21] MEDS: INSULIN REGULAR, HUMAN 300 UNIT/3 ML VIAL SQ PRN ×4 (08:51→21:02)
[2022-08-21] MEDS: ASPIRIN 81 MG TAB.CHEW PO SCH (09:24)
[2022-08-21] MEDS: FERROUS SULFATE 325 MG TABEC PO SCH (09:24)
[2022-08-21] MEDS: ALLOPURINOL 100 MG TABLET PO SCH (09:25)
[2022-08-21] MEDS: FUROSEMIDE 20 MG TABLET PO SCH (09:25)
[2022-08-21] MEDS: CARVEDILOL 25 MG TABLET PO SCH ×2 (09:25→20:34)
[2022-08-21] MEDS: MYRBETRIQ 25 MG PO SCH (09:26)
[2022-08-21] MEDS: FLUTICASONE/VILANTEROL 1 EACH BLST.W.DEV INH SCH (09:26)
[2022-08-21] MEDS: LIPASE/PROTEASE/AMYLASE 4200 UNITS CAPSULE.DR PO SCH ×3 (09:26→17:11)
[2022-08-21] MEDS: FINASTERIDE 5 MG TABLET PO SCH (09:26)
[2022-08-21] MEDS: [UNRECOGNIZED DRUG - OTHER] PO SCH (09:26)
[2022-08-21] MEDS: HEPARIN SODIUM,PORCINE 5,000 UNITS/ML VIAL SQ SCH ×2 (09:33→17:12)
[2022-08-21 09:38] LABS: BILIRUBIN,DIRECT 0.3 mg/dL (0.0-0.2); BILIRUBIN,TOTAL 0.6 mg/dL (0.2-1.0)
[2022-08-21] MEDS: INSULIN GLARGINE,HUM 300 UNITS/3 ML CARTRIDGE SQ SCH ×2 (09:46→21:04)
[2022-08-21] MEDS: CEFEPIME HCL 2 G in IV DEXTROSE 5% 100 ML IV SCH ×2 (10:32→21:17)
[2022-08-21 11:29] LABS: LYMPHOCYTES % (MANUAL) 24 % (20-40); MONOCYTES % (MANUAL) 27 % (2-10); NEUTROPHILS % (MANUAL) 49 % (42-75)
[2022-08-21] MEDS ORDERED: IV NORMAL SALINE 500 ML IV ONE (11:30)
[2022-08-21 11:50] VITALS: BP 117/63
[2022-08-21 15:56] VITALS: BP 110/56
[2022-08-21 20:32] VITALS: BP 118/55
[2022-08-21] MEDS: ATORVASTATIN 10 MG TABLET PO SCH (20:34)
[2022-08-21] MEDS: TERAZOSIN 5 MG CAPSULE PO SCH (20:34)
[2022-08-22] VITALS: BP 103/50
[2022-08-22 04:15] VITALS: BP 103/58
[2022-08-22] MEDS: PANTOPRAZOLE SODIUM 40 MG TABLET.DR PO SCH (06:09)
[2022-08-22] MEDS: BLOOD SUGAR DIAGNOSTIC 1 EACH STRIP VI SCH ×4 (06:23→21:17)
[2022-08-22] MEDS: INSULIN REGULAR, HUMAN 300 UNIT/3 ML VIAL SQ PRN ×4 (06:28→21:22)
[2022-08-22 06:59] LABS: HEMATOCRIT 33.9 % (36.7-47.1); MEAN CORPUSCULAR HEMOGLOBIN 30.6 uug (23.8-33.4); MEAN CORPUSCULAR VOLUME 89.6 fL (73.0-96.2); PLATELET COUNT (AUTO) 97 K/uL (152-348)
[2022-08-22 07:11] LABS: CARBON DIOXIDE 26 mmol/L (21-32); CHLORIDE 104 mmol/L (98-107); CREATININE 2.6 mg/dL (0.6-1.3); GLUCOSE 158 mg/dL (74-106); MAGNESIUM 2.2 mg/dL (1.8-2.4); PHOSPHOROUS 3.8 mg/dL (2.5-4.9); POTASSIUM 4.3 mmol/L (3.5-5.1); UREA NITROGEN, BLOOD 50 mg/dL (7-18)
[2022-08-22] MEDS: MYRBETRIQ 25 MG PO SCH (08:32)
[2022-08-22] MEDS: LIPASE/PROTEASE/AMYLASE 4200 UNITS CAPSULE.DR PO SCH ×3 (08:32→17:37)
[2022-08-22] MEDS: [UNRECOGNIZED DRUG - OTHER] PO SCH (08:32)
[2022-08-22] MEDS: ASPIRIN 81 MG TAB.CHEW PO SCH (08:33)
[2022-08-22] MEDS: FUROSEMIDE 20 MG TABLET PO SCH (08:34)
[2022-08-22] MEDS: FINASTERIDE 5 MG TABLET PO SCH (08:34)
[2022-08-22] MEDS: CARVEDILOL 12.5 MG TABLET PO SCH ×2 (08:34→21:25)
[2022-08-22] MEDS: FERROUS SULFATE 325 MG TABEC PO SCH (08:35)
[2022-08-22] MEDS: ALLOPURINOL 100 MG TABLET PO SCH (08:35)
[2022-08-22] MEDS: FOLIC ACID 1 MG TABLET PO SCH (08:35)
[2022-08-22] MEDS: FLUTICASONE/VILANTEROL 1 EACH BLST.W.DEV INH SCH (08:37)
[2022-08-22] MEDS: HEPARIN SODIUM,PORCINE 5,000 UNITS/ML VIAL SQ SCH ×2 (08:38→17:37)
[2022-08-22] MEDS: INSULIN GLARGINE,HUM 300 UNITS/3 ML CARTRIDGE SQ SCH ×2 (08:40→21:23)
[2022-08-22] MEDS ORDERED: CARVEDILOL 25 MG TABLET PO SCH (09:00)
[2022-08-22 09:14] LABS: EOSINOPHILS % (MANUAL) 1 % (0-8); LYMPHOCYTES % (MANUAL) 29 % (20-40); MONOCYTES % (MANUAL) 10 % (2-10); NEUTROPHILS % (MANUAL) 60 % (42-75)
[2022-08-22 11:03] VITALS: BP 102/55
[2022-08-22] MEDS ORDERED: CARV12.52 PO (13:19)
[2022-08-22 15:12] VITALS: BP 102/70
[2022-08-22 20:40] VITALS: BP 113/56
[2022-08-22] MEDS: TERAZOSIN 5 MG CAPSULE PO SCH (21:24)
[2022-08-22] MEDS: CEFEPIME HCL 2 G in IV DEXTROSE 5% 100 ML IV SCH (21:25)
[2022-08-22] MEDS: ATORVASTATIN 10 MG TABLET PO SCH (21:25)
[2022-08-23 00:14] VITALS: BP 105/56
[2022-08-23 04:45] VITALS: BP 114/60
[2022-08-23] MEDS: PANTOPRAZOLE SODIUM 40 MG TABLET.DR PO SCH (06:04)
[2022-08-23] MEDS: BLOOD SUGAR DIAGNOSTIC 1 EACH STRIP VI SCH ×4 (06:37→20:49)
[2022-08-23 06:59] LABS: HEMATOCRIT 36.2 % (36.7-47.1); MEAN CORPUSCULAR HEMOGLOBIN 30.2 uug (23.8-33.4); MEAN CORPUSCULAR VOLUME 90.8 fL (73.0-96.2); PLATELET COUNT (AUTO) 104 K/uL (152-348)
[2022-08-23 07:17] LABS: CARBON DIOXIDE 21 mmol/L (21-32); CHLORIDE 105 mmol/L (98-107); CREATININE 2.8 mg/dL (0.6-1.3); GLUCOSE 162 mg/dL (74-106); MAGNESIUM 2.3 mg/dL (1.8-2.4); PHOSPHOROUS 4.8 mg/dL (2.5-4.9); POTASSIUM 4.3 mmol/L (3.5-5.1); UREA NITROGEN, BLOOD 66 mg/dL (7-18)
[2022-08-23] MEDS: LIPASE/PROTEASE/AMYLASE 4200 UNITS CAPSULE.DR PO SCH ×3 (09:25→17:00)
[2022-08-23] MEDS: FLUTICASONE/VILANTEROL 1 EACH BLST.W.DEV INH SCH (09:25)
[2022-08-23] MEDS: MYRBETRIQ 25 MG PO SCH (09:26)
[2022-08-23] MEDS: FOLIC ACID 1 MG TABLET PO SCH (09:26)
[2022-08-23] MEDS: FERROUS SULFATE 325 MG TABEC PO SCH (09:26)
[2022-08-23] MEDS: [UNRECOGNIZED DRUG - OTHER] PO SCH (09:26)
[2022-08-23] MEDS: ALLOPURINOL 100 MG TABLET PO SCH (09:26)
[2022-08-23] MEDS: FINASTERIDE 5 MG TABLET PO SCH (09:26)
[2022-08-23] MEDS: CARVEDILOL 12.5 MG TABLET PO SCH ×3 (09:27→21:16)
[2022-08-23] MEDS: HEPARIN SODIUM,PORCINE 5,000 UNITS/ML VIAL SQ SCH ×2 (09:28→17:30)
[2022-08-23] MEDS: INSULIN GLARGINE,HUM 300 UNITS/3 ML CARTRIDGE SQ SCH ×2 (09:32→20:52)
[2022-08-23] MEDS: ASPIRIN 81 MG TAB.CHEW PO SCH (10:23)
[2022-08-23 11:00] VITALS: BP 103/64
[2022-08-23 11:05] LABS: EOSINOPHILS % (MANUAL) 1 % (0-8); LYMPHOCYTES % (MANUAL) 44 % (20-40); MONOCYTES % (MANUAL) 11 % (2-10); NEUTROPHILS % (MANUAL) 44 % (42-75)
[2022-08-23] MEDS: INSULIN REGULAR, HUMAN 300 UNIT/3 ML VIAL SQ PRN ×2 (11:44→17:35)
[2022-08-23 16:00] VITALS: BP 110/58
[2022-08-23] MEDS: GLUCERNA SHAKE 237 ML CAN PO SCH (17:00)
[2022-08-23] MEDS: IV NS 1000 ML 1,000 ML IV PRN (17:02)
[2022-08-23 20:19] VITALS: BP 102/53
[2022-08-23] MEDS: CEFEPIME HCL 2 G in IV DEXTROSE 5% 100 ML IV SCH (20:45)
[2022-08-23] MEDS: INSULIN REGULAR, HUMAN 300 UNITS/3 ML VIAL SQ PRN (21:00)
[2022-08-23] MEDS: TERAZOSIN 5 MG CAPSULE PO SCH ×2 (21:00→21:16)
[2022-08-23] MEDS: ATORVASTATIN 10 MG TABLET PO SCH ×2 (21:16→21:30)
[2022-08-24] MEDS: NYSTATIN SUSPENSION 5 ML LIQUID UDC PO SCH ×4 (00:10→17:25)
[2022-08-24 00:41] VITALS: BP 122/60
[2022-08-24 04:27] VITALS: BP 120/63
[2022-08-24] MEDS: PANTOPRAZOLE SODIUM 40 MG TABLET.DR PO SCH (06:20)
[2022-08-24] MEDS: BLOOD SUGAR DIAGNOSTIC 1 EACH STRIP VI SCH ×4 (06:34→21:24)
[2022-08-24 06:48] LABS: HEMATOCRIT 35.3 % (36.7-47.1); MEAN CORPUSCULAR HEMOGLOBIN 29.6 uug (23.8-33.4); MEAN CORPUSCULAR VOLUME 89.9 fL (73.0-96.2); PLATELET COUNT (AUTO) 115 K/uL (152-348)
[2022-08-24 07:40] LABS: CARBON DIOXIDE 24 mmol/L (21-32); CHLORIDE 109 mmol/L (98-107); CREATININE 2.9 mg/dL (0.6-1.3); GLUCOSE 185 mg/dL (74-106); MAGNESIUM 2.6 mg/dL (1.8-2.4); PHOSPHOROUS 4.9 mg/dL (2.5-4.9); UREA NITROGEN, BLOOD 78 mg/dL (7-18)
[2022-08-24] MEDS: GLUCERNA SHAKE 237 ML CAN PO SCH ×2 (08:00→17:00)
[2022-08-24] MEDS: LIPASE/PROTEASE/AMYLASE 4200 UNITS CAPSULE.DR PO SCH ×3 (08:00→17:00)
[2022-08-24] MEDS: MYRBETRIQ 25 MG PO SCH (09:00)
[2022-08-24] MEDS: FINASTERIDE 5 MG TABLET PO SCH (09:00)
[2022-08-24] MEDS: FLUTICASONE/VILANTEROL 1 EACH BLST.W.DEV INH SCH (09:00)
[2022-08-24] MEDS: [UNRECOGNIZED DRUG - OTHER] PO SCH (09:00)
[2022-08-24] MEDS: ALLOPURINOL 100 MG TABLET PO SCH (09:00)
[2022-08-24] MEDS: ASPIRIN 81 MG TAB.CHEW PO SCH (09:00)
[2022-08-24] MEDS: FERROUS SULFATE 325 MG TABEC PO SCH (09:00)
[2022-08-24] MEDS: CARVEDILOL 12.5 MG TABLET PO SCH ×2 (09:00→21:00)
[2022-08-24] MEDS: FOLIC ACID 1 MG TABLET PO SCH (09:00)
[2022-08-24] MEDS: HEPARIN SODIUM,PORCINE 5,000 UNITS/ML VIAL SQ SCH ×2 (10:47→17:25)
[2022-08-24] MEDS: INSULIN GLARGINE,HUM 300 UNITS/3 ML CARTRIDGE SQ SCH ×2 (11:32→21:28)
[2022-08-24] MEDS: INSULIN REGULAR, HUMAN 300 UNIT/3 ML VIAL SQ PRN ×2 (11:33→16:48)
[2022-08-24 11:58] VITALS: BP 114/63
[2022-08-24 12:29] LABS: BAND % (MANUAL) 7 % (0-10); EOSINOPHILS % (MANUAL) 2 % (0-8); LYMPHOCYTES % (MANUAL) 18 % (20-40); MONOCYTES % (MANUAL) 12 % (2-10); NEUTROPHILS % (MANUAL) 61 % (42-75)
[2022-08-24] MEDS: IV NS 1000 ML 1,000 ML IV PRN (15:12)
[2022-08-24 16:03] VITALS: BP 132/64
[2022-08-24 17:38] LABS: *BILIRUBIN,URIN NEGATIVE (NEGATIVE); *BLOOD, URINE 2+ (NEGATIVE); *CLARITY,URINE CLEAR (CLEAR); *COLOR,URINE YELLOW (YELLOW); *KETONES,URINE NEGATIVE (NEGATIVE); *UROBILINOGEN,URINE 0.2 E.U./dl (NORMAL); LEUKOCYTE ESTERASE ,URINE NEGATIVE (NEGATIVE); NITRITE, URINE NEGATIVE (NEGATIVE); PH,URINE 5.5 (5.0-8.0); UGLUCOSE NEGATIVE (NEGATIVE)
[2022-08-24 17:50] LABS: BACTERIA,URINE FEW /HPF (NONE SEEN); WBC,URINE NONE SEEN /HPF (0-3)
[2022-08-24 17:51] LABS: SQUAMOUS EPITHELIAL CELL,UR FEW /HPF (NONE SEEN)
[2022-08-24 17:52] LABS: URINE AMORPHOUS URATE FEW /HPF
[2022-08-24 20:00] VITALS: BP 113/53
[2022-08-24] MEDS: ATORVASTATIN 10 MG TABLET PO SCH (21:00)
[2022-08-24] MEDS: TERAZOSIN 5 MG CAPSULE PO SCH (21:00)
[2022-08-24] MEDS: CEFEPIME HCL 2 G in IV DEXTROSE 5% 100 ML IV SCH (21:22)
[2022-08-25] VITALS: BP 109/55
[2022-08-25] MEDS: NYSTATIN SUSPENSION 5 ML LIQUID UDC PO SCH ×4 (00:02→18:01)
[2022-08-25 04:12] VITALS: BP 130/57
[2022-08-25 06:25] LABS: HEMATOCRIT 33.6 % (36.7-47.1); MEAN CORPUSCULAR HEMOGLOBIN 30.2 uug (23.8-33.4); MEAN CORPUSCULAR VOLUME 90.5 fL (73.0-96.2); PLATELET COUNT (AUTO) 137 K/uL (152-348)
[2022-08-25 06:40] LABS: CARBON DIOXIDE 23 mmol/L (21-32); CHLORIDE 114 mmol/L (98-107); CREATININE 2.3 mg/dL (0.6-1.3); GLUCOSE 150 mg/dL (74-106); MAGNESIUM 2.4 mg/dL (1.8-2.4); PHOSPHOROUS 4.4 mg/dL (2.5-4.9); UREA NITROGEN, BLOOD 74 mg/dL (7-18)
[2022-08-25] MEDS: BLOOD SUGAR DIAGNOSTIC 1 EACH STRIP VI SCH ×4 (07:00→20:41)
[2022-08-25] MEDS: PANTOPRAZOLE SODIUM 40 MG TABLET.DR PO SCH (07:15)
[2022-08-25] MEDS: LIPASE/PROTEASE/AMYLASE 4200 UNITS CAPSULE.DR PO SCH ×3 (08:00→17:00)
[2022-08-25] MEDS: GLUCERNA SHAKE 237 ML CAN PO SCH ×2 (08:00→17:00)
[2022-08-25] MEDS: FINASTERIDE 5 MG TABLET PO SCH (09:00)
[2022-08-25] MEDS: [UNRECOGNIZED DRUG - OTHER] PO SCH (09:00)
[2022-08-25] MEDS: FOLIC ACID 1 MG TABLET PO SCH (09:00)
[2022-08-25] MEDS: ALLOPURINOL 100 MG TABLET PO SCH (09:00)
[2022-08-25] MEDS: FERROUS SULFATE 325 MG TABEC PO SCH (09:00)
[2022-08-25] MEDS: ASPIRIN 81 MG TAB.CHEW PO SCH (09:00)
[2022-08-25] MEDS: FLUTICASONE/VILANTEROL 1 EACH BLST.W.DEV INH SCH (09:00)
[2022-08-25] MEDS: CARVEDILOL 12.5 MG TABLET PO SCH ×2 (09:00→20:40)
[2022-08-25] MEDS: MYRBETRIQ 25 MG PO SCH (09:00)
[2022-08-25] MEDS: INSULIN GLARGINE,HUM 300 UNITS/3 ML CARTRIDGE SQ SCH ×2 (09:10→20:45)
[2022-08-25] MEDS: HEPARIN SODIUM,PORCINE 5,000 UNITS/ML VIAL SQ SCH ×2 (09:10→17:58)
[2022-08-25 09:52] LABS: BAND % (MANUAL) 6 % (0-10); EOSINOPHILS % (MANUAL) 4 % (0-8); LYMPHOCYTES % (MANUAL) 24 % (20-40); MONOCYTES % (MANUAL) 9 % (2-10); NEUTROPHILS % (MANUAL) 57 % (42-75)
[2022-08-25 10:41] VITALS: BP 129/62
[2022-08-25] MEDS: INSULIN REGULAR, HUMAN 300 UNIT/3 ML VIAL SQ PRN (13:20)
[2022-08-25] MEDS: IV NS 1000 ML 1,000 ML IV PRN (14:33)
[2022-08-25 16:14] VITALS: BP 149/60
[2022-08-25 20:07] VITALS: BP 145/74
[2022-08-25] MEDS: TERAZOSIN 5 MG CAPSULE PO SCH (20:40)
[2022-08-25] MEDS: ATORVASTATIN 10 MG TABLET PO SCH (20:41)
[2022-08-26] VITALS: BP 139/76
[2022-08-26 04:11] VITALS: BP 119/63
[2022-08-26] MEDS: NYSTATIN SUSPENSION 5 ML LIQUID UDC PO SCH ×4 (05:16→18:00)
[2022-08-26] MEDS: PANTOPRAZOLE SODIUM 40 MG TABLET.DR PO SCH (06:15)
[2022-08-26] MEDS: BLOOD SUGAR DIAGNOSTIC 1 EACH STRIP VI SCH ×4 (06:35→23:50)
[2022-08-26 07:15] LABS: HEMATOCRIT 35.8 % (36.7-47.1); MEAN CORPUSCULAR HEMOGLOBIN 29.7 uug (23.8-33.4); MEAN CORPUSCULAR VOLUME 90.6 fL (73.0-96.2); PLATELET COUNT (AUTO) 168 K/uL (152-348)
[2022-08-26 07:27] LABS: CARBON DIOXIDE 24 mmol/L (21-32); CHLORIDE 118 mmol/L (98-107); CREATININE 1.9 mg/dL (0.6-1.3); GLUCOSE 154 mg/dL (74-106); MAGNESIUM 2.3 mg/dL (1.8-2.4); PHOSPHOROUS 4.1 mg/dL (2.5-4.9); POTASSIUM 4.2 mmol/L (3.5-5.1); UREA NITROGEN, BLOOD 65 mg/dL (7-18)
[2022-08-26] MEDS: LIPASE/PROTEASE/AMYLASE 4200 UNITS CAPSULE.DR PO SCH ×3 (08:00→17:00)
[2022-08-26] MEDS: GLUCERNA SHAKE 237 ML CAN PO SCH ×2 (08:00→17:00)
[2022-08-26] MEDS: INSULIN REGULAR, HUMAN 300 UNIT/3 ML VIAL SQ PRN ×2 (08:57→23:52)
[2022-08-26] MEDS: FOLIC ACID 1 MG TABLET PO SCH (09:00)
[2022-08-26] MEDS: HEPARIN SODIUM,PORCINE 5,000 UNITS/ML VIAL SQ SCH ×2 (09:00→17:00)
[2022-08-26] MEDS: FERROUS SULFATE 325 MG TABEC PO SCH (09:00)
[2022-08-26] MEDS: INSULIN GLARGINE,HUM 300 UNITS/3 ML CARTRIDGE SQ SCH ×2 (09:00→21:36)
[2022-08-26] MEDS: ASPIRIN 81 MG TAB.CHEW PO SCH (09:00)
[2022-08-26] MEDS: CARVEDILOL 12.5 MG TABLET PO SCH ×2 (09:00→22:33)
[2022-08-26] MEDS: [UNRECOGNIZED DRUG - OTHER] PO SCH (09:00)
[2022-08-26] MEDS: FINASTERIDE 5 MG TABLET PO SCH (09:00)
[2022-08-26] MEDS: ALLOPURINOL 100 MG TABLET PO SCH (09:00)
[2022-08-26] MEDS: MYRBETRIQ 25 MG PO SCH (09:00)
[2022-08-26 11:53] VITALS: BP 117/55
[2022-08-26 16:27] VITALS: BP 131/60
[2022-08-26] MEDS: FLUTICASONE/VILANTEROL 1 EACH BLST.W.DEV INH SCH (18:30)
[2022-08-26] MEDS ORDERED: ZIPRASIDONE MESYLATE 20 MG VIAL IM PRN (19:00)
[2022-08-26] MEDS ORDERED: DEXTROSE 50% 50 ML DISP.SYRIN IV PRN (20:30)
[2022-08-26] MEDS: IV D5W 1000ML 1,000 ML IV PRN (20:53)
[2022-08-26 22:00] VITALS: BP 146/65
[2022-08-26] MEDS: ATORVASTATIN 10 MG TABLET PO SCH (22:32)
[2022-08-26] MEDS: TERAZOSIN 5 MG CAPSULE PO SCH (22:33)
[2022-08-27 00:03] VITALS: BP 160/65
[2022-08-27] MEDS: NYSTATIN SUSPENSION 5 ML LIQUID UDC PO SCH ×5 (00:03→23:49)
[2022-08-27 01:15] VITALS: BP 145/66
[2022-08-27 04:00] VITALS: BP 156/67
[2022-08-27] MEDS: BLOOD SUGAR DIAGNOSTIC 1 EACH STRIP VI SCH ×4 (06:34→23:50)
[2022-08-27] MEDS: INSULIN REGULAR, HUMAN 300 UNIT/3 ML VIAL SQ PRN ×3 (06:36→17:36)
[2022-08-27 06:48] LABS: MEAN CORPUSCULAR VOLUME 90.2 fL (73.0-96.2); PLATELET COUNT (AUTO) 201 K/uL (152-348)
[2022-08-27] MEDS: PANTOPRAZOLE SODIUM 40 MG TABLET.DR PO SCH (07:00)
[2022-08-27 07:03] LABS: CARBON DIOXIDE 26 mmol/L (21-32); CHLORIDE 119 mmol/L (98-107); CREATININE 1.7 mg/dL (0.6-1.3); GLUCOSE 185 mg/dL (74-106); MAGNESIUM 2.1 mg/dL (1.8-2.4); PHOSPHOROUS 3.5 mg/dL (2.5-4.9); POTASSIUM 4.3 mmol/L (3.5-5.1); UREA NITROGEN, BLOOD 54 mg/dL (7-18)
[2022-08-27] MEDS: GLUCERNA SHAKE 237 ML CAN PO SCH ×2 (08:00→16:31)
[2022-08-27] MEDS: HEPARIN SODIUM,PORCINE 5,000 UNITS/ML VIAL SQ SCH ×2 (09:00→16:31)
[2022-08-27] MEDS: FERROUS SULFATE 325 MG TABEC PO SCH (09:08)
[2022-08-27] MEDS: FOLIC ACID 1 MG TABLET PO SCH (09:08)
[2022-08-27] MEDS: FINASTERIDE 5 MG TABLET PO SCH (09:08)
[2022-08-27] MEDS: ASPIRIN 81 MG TAB.CHEW PO SCH (09:08)
[2022-08-27] MEDS: ALLOPURINOL 100 MG TABLET PO SCH (09:09)
[2022-08-27] MEDS: MYRBETRIQ 25 MG PO SCH (09:09)
[2022-08-27] MEDS: [UNRECOGNIZED DRUG - OTHER] PO SCH (09:09)
[2022-08-27] MEDS: LIPASE/PROTEASE/AMYLASE 4200 UNITS CAPSULE.DR PO SCH ×3 (09:10→16:39)
[2022-08-27] MEDS: FLUTICASONE/VILANTEROL 1 EACH BLST.W.DEV INH SCH (09:13)
[2022-08-27] MEDS: CARVEDILOL 12.5 MG TABLET PO SCH ×2 (09:14→20:50)
[2022-08-27] MEDS: INSULIN GLARGINE,HUM 300 UNITS/3 ML CARTRIDGE SQ SCH ×2 (09:16→21:13)
[2022-08-27 12:03] VITALS: BP 127/54
[2022-08-27 15:48] VITALS: BP 135/70
[2022-08-27 20:00] VITALS: BP 134/72
[2022-08-27] MEDS: ATORVASTATIN 10 MG TABLET PO SCH (20:49)
[2022-08-27] MEDS: TERAZOSIN 5 MG CAPSULE PO SCH (20:50)
[2022-08-27] MEDS: IV D5W 1000ML 1,000 ML IV PRN (21:20)
[2022-08-28] MEDS: INSULIN REGULAR, HUMAN 300 UNIT/3 ML VIAL SQ PRN ×4 (00:08→17:37)
[2022-08-28 00:17] VITALS: BP 132/69
[2022-08-28 04:00] VITALS: BP 139/49
[2022-08-28] MEDS: NYSTATIN SUSPENSION 5 ML LIQUID UDC PO SCH ×3 (05:05→17:40)
[2022-08-28] MEDS: BLOOD SUGAR DIAGNOSTIC 1 EACH STRIP VI SCH ×3 (05:22→17:40)
[2022-08-28] MEDS: PANTOPRAZOLE SODIUM 40 MG TABLET.DR PO SCH (06:06)
[2022-08-28 06:37] LABS: CARBON DIOXIDE 27 mmol/L (21-32); CHLORIDE 117 mmol/L (98-107); CREATININE 1.6 mg/dL (0.6-1.3); GLUCOSE 159 mg/dL (74-106); PHOSPHOROUS 3.1 mg/dL (2.5-4.9); UREA NITROGEN, BLOOD 44 mg/dL (7-18)
[2022-08-28 06:43] LABS: HEMATOCRIT 33.3 % (36.7-47.1); MEAN CORPUSCULAR HEMOGLOBIN 30.6 uug (23.8-33.4); MEAN CORPUSCULAR VOLUME 91.8 fL (73.0-96.2); PLATELET COUNT (AUTO) 215 K/uL (152-348)
[2022-08-28] MEDS: GLUCERNA SHAKE 237 ML CAN PO SCH ×2 (08:00→17:00)
[2022-08-28] MEDS: LIPASE/PROTEASE/AMYLASE 4200 UNITS CAPSULE.DR PO SCH ×3 (10:42→17:35)
[2022-08-28] MEDS: FINASTERIDE 5 MG TABLET PO SCH (10:42)
[2022-08-28] MEDS: ASPIRIN 81 MG TAB.CHEW PO SCH (10:42)
[2022-08-28] MEDS: ALLOPURINOL 100 MG TABLET PO SCH (10:42)
[2022-08-28] MEDS: FERROUS SULFATE 325 MG TABEC PO SCH (10:42)
[2022-08-28] MEDS: CARVEDILOL 12.5 MG TABLET PO SCH ×2 (10:43→21:02)
[2022-08-28] MEDS: [UNRECOGNIZED DRUG - OTHER] PO SCH (10:43)
[2022-08-28] MEDS: FOLIC ACID 1 MG TABLET PO SCH (10:43)
[2022-08-28] MEDS: MYRBETRIQ 25 MG PO SCH (10:43)
[2022-08-28] MEDS: FLUTICASONE/VILANTEROL 1 EACH BLST.W.DEV INH SCH (10:44)
[2022-08-28] MEDS: INSULIN GLARGINE,HUM 300 UNITS/3 ML CARTRIDGE SQ SCH ×2 (10:45→21:08)
[2022-08-28] MEDS: HEPARIN SODIUM,PORCINE 5,000 UNITS/ML VIAL SQ SCH ×2 (10:47→17:38)
[2022-08-28 11:59] VITALS: BP 134/60
[2022-08-28 15:49] VITALS: BP 121/54
[2022-08-28 20:00] VITALS: BP 160/68
[2022-08-28] MEDS: TERAZOSIN 5 MG CAPSULE PO SCH (21:03)
[2022-08-28] MEDS: ATORVASTATIN 10 MG TABLET PO SCH (21:03)
[2022-08-28] MEDS ORDERED: GLUCERNA 1.2 1000ML LIQUID NG PRN (22:45)
[2022-08-29] VITALS: BP 128/52
[2022-08-29] MEDS: NYSTATIN SUSPENSION 5 ML LIQUID UDC PO SCH ×4 (00:06→17:06)
[2022-08-29] MEDS: BLOOD SUGAR DIAGNOSTIC 1 EACH STRIP VI SCH ×5 (00:07→20:37)
[2022-08-29] MEDS: INSULIN REGULAR, HUMAN 300 UNIT/3 ML VIAL SQ PRN ×4 (00:10→20:22)
[2022-08-29 04:00] VITALS: BP 144/59
[2022-08-29] MEDS: PANTOPRAZOLE SODIUM 40 MG TABLET.DR PO SCH (06:28)
[2022-08-29] MEDS: GLUCERNA SHAKE 237 ML CAN PO SCH ×2 (08:00→16:34)
[2022-08-29] MEDS: FLUTICASONE/VILANTEROL 1 EACH BLST.W.DEV INH SCH (08:43)
[2022-08-29] MEDS: ASPIRIN 81 MG TAB.CHEW PO SCH (08:43)
[2022-08-29] MEDS: CARVEDILOL 12.5 MG TABLET PO SCH ×2 (08:43→20:31)
[2022-08-29] MEDS: FOLIC ACID 1 MG TABLET PO SCH (08:45)
[2022-08-29] MEDS: FINASTERIDE 5 MG TABLET PO SCH (08:45)
[2022-08-29] MEDS: ALLOPURINOL 100 MG TABLET PO SCH (08:46)
[2022-08-29] MEDS: [UNRECOGNIZED DRUG - OTHER] PO SCH (08:47)
[2022-08-29] MEDS: MYRBETRIQ 25 MG PO SCH (08:47)
[2022-08-29] MEDS: HEPARIN SODIUM,PORCINE 5,000 UNITS/ML VIAL SQ SCH ×2 (08:50→16:35)
[2022-08-29] MEDS: LIPASE/PROTEASE/AMYLASE 4200 UNITS CAPSULE.DR PO SCH ×3 (08:53→16:34)
[2022-08-29] MEDS: FERROUS SULFATE 300 MG/5 ML LIQUID UDC NG SCH (09:05)
[2022-08-29] MEDS: INSULIN GLARGINE,HUM 300 UNITS/3 ML CARTRIDGE SQ SCH ×2 (09:20→20:20)
[2022-08-29 11:02] VITALS: BP 143/68
[2022-08-29 15:10] VITALS: BP 136/57
[2022-08-29] MEDS: IV D5W 1000ML 1,000 ML IV PRN (16:19)
[2022-08-29 20:00] VITALS: BP 138/63
[2022-08-29] MEDS ORDERED: DEXTROSE 50% 50 ML DISP.SYRIN IV PRN (20:00)
[2022-08-29] MEDS: TERAZOSIN 5 MG CAPSULE PO SCH (20:30)
[2022-08-29] MEDS: ATORVASTATIN 10 MG TABLET PO SCH (20:31)
[2022-08-30] VITALS: BP 142/67
[2022-08-30] MEDS: NYSTATIN SUSPENSION 5 ML LIQUID UDC PO SCH ×4 (00:29→17:10)
[2022-08-30 04:00] VITALS: BP 162/61
[2022-08-30] MEDS: PANTOPRAZOLE SODIUM 40 MG TABLET.DR PO SCH (06:18)
[2022-08-30] MEDS: BLOOD SUGAR DIAGNOSTIC 1 EACH STRIP VI SCH ×4 (06:41→21:37)
[2022-08-30 07:40] LABS: HEMATOCRIT 31.4 % (36.7-47.1); MEAN CORPUSCULAR HEMOGLOBIN 30.4 uug (23.8-33.4); MEAN CORPUSCULAR VOLUME 91.3 fL (73.0-96.2); PLATELET COUNT (AUTO) 231 K/uL (152-348)
[2022-08-30 07:52] LABS: CARBON DIOXIDE 29 mmol/L (21-32); CHLORIDE 111 mmol/L (98-107); CREATININE 1.4 mg/dL (0.6-1.3); GLUCOSE 122 mg/dL (74-106); MAGNESIUM 1.9 mg/dL (1.8-2.4); PHOSPHOROUS 2.9 mg/dL (2.5-4.9); POTASSIUM 3.8 mmol/L (3.5-5.1); UREA NITROGEN, BLOOD 27 mg/dL (7-18)
[2022-08-30] MEDS: FINASTERIDE 5 MG TABLET PO SCH (08:50)
[2022-08-30] MEDS: LIPASE/PROTEASE/AMYLASE 4200 UNITS CAPSULE.DR PO SCH ×3 (08:50→16:36)
[2022-08-30] MEDS: GLUCERNA SHAKE 237 ML CAN PO SCH ×2 (08:50→16:36)
[2022-08-30] MEDS: ALLOPURINOL 100 MG TABLET PO SCH (08:51)
[2022-08-30] MEDS: FOLIC ACID 1 MG TABLET PO SCH (08:51)
[2022-08-30] MEDS: [UNRECOGNIZED DRUG - OTHER] PO SCH (08:51)
[2022-08-30] MEDS: ASPIRIN 81 MG TAB.CHEW PO SCH (08:51)
[2022-08-30] MEDS: MYRBETRIQ 25 MG PO SCH (08:51)
[2022-08-30] MEDS: FERROUS SULFATE 300 MG/5 ML LIQUID UDC NG SCH (08:51)
[2022-08-30] MEDS: FLUTICASONE/VILANTEROL 1 EACH BLST.W.DEV INH SCH (08:53)
[2022-08-30] MEDS: CARVEDILOL 12.5 MG TABLET PO SCH ×2 (08:56→21:41)
[2022-08-30] MEDS: HEPARIN SODIUM,PORCINE 5,000 UNITS/ML VIAL SQ SCH ×2 (08:58→16:37)
[2022-08-30] MEDS: INSULIN REGULAR, HUMAN 300 UNIT/3 ML VIAL SQ PRN ×3 (09:00→21:40)
[2022-08-30] MEDS: INSULIN GLARGINE,HUM 300 UNITS/3 ML CARTRIDGE SQ SCH ×2 (09:02→21:39)
[2022-08-30 11:00] VITALS: BP 127/61
[2022-08-30 13:02] LABS: *BILIRUBIN,URIN NEGATIVE (NEGATIVE); *BLOOD, URINE 3+ (NEGATIVE); *CLARITY,URINE CLEAR (CLEAR); *COLOR,URINE YELLOW (YELLOW); *KETONES,URINE NEGATIVE (NEGATIVE); *UROBILINOGEN,URINE 0.2 E.U./dl (NORMAL); LEUKOCYTE ESTERASE ,URINE TRACE (NEGATIVE); NITRITE, URINE NEGATIVE (NEGATIVE); PH,URINE 5.5 (5.0-8.0); UGLUCOSE NEGATIVE (NEGATIVE)
[2022-08-30 14:23] LABS: BACTERIA,URINE FEW /HPF (NONE SEEN); SQUAMOUS EPITHELIAL CELL,UR FEW /HPF (NONE SEEN); URIC ACID CRYSTALS,URINE MODERATE /HPF (NONE SEEN); WBC,URINE 0-3 /HPF (0-3)
[2022-08-30 15:10] VITALS: BP 138/59
[2022-08-30] MEDS: IV D5W 1000ML 1,000 ML IV SCH ×2 (15:21)
[2022-08-30 20:00] VITALS: BP 163/70
[2022-08-30] MEDS: TERAZOSIN 5 MG CAPSULE PO SCH (21:41)
[2022-08-30] MEDS: ATORVASTATIN 10 MG TABLET PO SCH (21:42)
[2022-08-31] VITALS: BP 136/63
[2022-08-31] MEDS: NYSTATIN SUSPENSION 5 ML LIQUID UDC PO SCH ×4 (00:07→17:05)
[2022-08-31 04:00] VITALS: BP 130/62
[2022-08-31] MEDS: PANTOPRAZOLE SODIUM 40 MG TABLET.DR PO SCH (06:21)
[2022-08-31] MEDS: BLOOD SUGAR DIAGNOSTIC 1 EACH STRIP VI SCH ×4 (06:39→21:47)
[2022-08-31 07:09] LABS: HEMATOCRIT 32.7 % (36.7-47.1); MEAN CORPUSCULAR HEMOGLOBIN 29.7 uug (23.8-33.4); MEAN CORPUSCULAR VOLUME 91.1 fL (73.0-96.2); PLATELET COUNT (AUTO) 227 K/uL (152-348)
[2022-08-31 07:31] LABS: CREATININE 1.2 mg/dL (0.6-1.3); MAGNESIUM 1.7 mg/dL (1.8-2.4); POTASSIUM 3.8 mmol/L (3.5-5.1)
[2022-08-31] MEDS: [UNRECOGNIZED DRUG - OTHER] PO SCH (09:10)
[2022-08-31] MEDS: FLUTICASONE/VILANTEROL 1 EACH BLST.W.DEV INH SCH (09:10)
[2022-08-31] MEDS: MYRBETRIQ 25 MG PO SCH (09:10)
[2022-08-31] MEDS: FERROUS SULFATE 300 MG/5 ML LIQUID UDC NG SCH (09:10)
[2022-08-31] MEDS: ASPIRIN 81 MG TAB.CHEW PO SCH (09:11)
[2022-08-31] MEDS: FINASTERIDE 5 MG TABLET PO SCH (09:11)
[2022-08-31] MEDS: FOLIC ACID 1 MG TABLET PO SCH (09:11)
[2022-08-31] MEDS: CARVEDILOL 12.5 MG TABLET PO SCH ×2 (09:11→21:43)
[2022-08-31] MEDS: ALLOPURINOL 100 MG TABLET PO SCH (09:11)
[2022-08-31] MEDS: GLUCERNA SHAKE 237 ML CAN PO SCH ×2 (09:12→17:04)
[2022-08-31] MEDS: MEGESTROL ACETATE 20 MG TABLET PO SCH ×2 (09:12→17:05)
[2022-08-31] MEDS: LIPASE/PROTEASE/AMYLASE 4200 UNITS CAPSULE.DR PO SCH ×3 (09:12→17:10)
[2022-08-31] MEDS: HEPARIN SODIUM,PORCINE 5,000 UNITS/ML VIAL SQ SCH ×2 (09:13→17:12)
[2022-08-31] MEDS: INSULIN GLARGINE,HUM 300 UNITS/3 ML CARTRIDGE SQ SCH ×2 (09:18→21:48)
[2022-08-31] MEDS: IV D5W 1000ML 1,000 ML IV SCH (09:37)
[2022-08-31] MEDS: MAGNESIUM SULFATE/D5W 100 ML IV SCH ×2 (09:41→10:35)
[2022-08-31 12:07] VITALS: BP 116/46
[2022-08-31] MEDS: INSULIN REGULAR, HUMAN 300 UNIT/3 ML VIAL SQ PRN ×3 (12:53→21:49)
[2022-08-31 16:08] VITALS: BP 175/61
[2022-08-31 20:00] VITALS: BP 139/65
[2022-08-31] MEDS: ATORVASTATIN 10 MG TABLET PO SCH (21:43)
[2022-08-31] MEDS: TERAZOSIN 5 MG CAPSULE PO SCH (21:44)
[2022-09-01] VITALS: BP 134/59
[2022-09-01] MEDS: NYSTATIN SUSPENSION 5 ML LIQUID UDC PO SCH ×3 (00:35→13:00)
[2022-09-01] MEDS: IV D5W 1000ML 1,000 ML IV SCH (01:00)
[2022-09-01 04:00] VITALS: BP 140/50
[2022-09-01] MEDS: PANTOPRAZOLE SODIUM 40 MG TABLET.DR PO SCH (06:05)
[2022-09-01] MEDS: BLOOD SUGAR DIAGNOSTIC 1 EACH STRIP VI SCH ×2 (06:07→11:30)
[2022-09-01 06:32] LABS: HEMATOCRIT 32.5 % (36.7-47.1); MEAN CORPUSCULAR HEMOGLOBIN 30.2 uug (23.8-33.4); MEAN CORPUSCULAR VOLUME 91.2 fL (73.0-96.2); PLATELET COUNT (AUTO) 236 K/uL (152-348)
[2022-09-01 07:33] LABS: CREATININE 1.1 mg/dL (0.6-1.3); MAGNESIUM 1.9 mg/dL (1.8-2.4); POTASSIUM 3.7 mmol/L (3.5-5.1)
[2022-09-01] MEDS: INSULIN REGULAR, HUMAN 300 UNIT/3 ML VIAL SQ PRN ×2 (08:05→13:12)
[2022-09-01] MEDS: ASPIRIN 81 MG TAB.CHEW PO SCH (08:42)
[2022-09-01] MEDS: ALLOPURINOL 100 MG TABLET PO SCH (08:42)
[2022-09-01] MEDS: FOLIC ACID 1 MG TABLET PO SCH (08:42)
[2022-09-01] MEDS: MEGESTROL ACETATE 20 MG TABLET PO SCH (08:42)
[2022-09-01] MEDS: FINASTERIDE 5 MG TABLET PO SCH (08:42)
[2022-09-01] MEDS: CARVEDILOL 12.5 MG TABLET PO SCH (08:42)
[2022-09-01] MEDS: MYRBETRIQ 25 MG PO SCH (08:43)
[2022-09-01] MEDS: LIPASE/PROTEASE/AMYLASE 4200 UNITS CAPSULE.DR PO SCH ×2 (08:43→13:00)
[2022-09-01] MEDS: FERROUS SULFATE 300 MG/5 ML LIQUID UDC NG SCH (08:43)
[2022-09-01] MEDS: FLUTICASONE/VILANTEROL 1 EACH BLST.W.DEV INH SCH (08:43)
[2022-09-01] MEDS: GLUCERNA SHAKE 237 ML CAN PO SCH (08:43)
[2022-09-01] MEDS: [UNRECOGNIZED DRUG - OTHER] PO SCH (08:43)
[2022-09-01] MEDS: HEPARIN SODIUM,PORCINE 5,000 UNITS/ML VIAL SQ SCH (08:44)
[2022-09-01] MEDS ORDERED: CLOPIDOGREL 75 MG TABLET PO SCH (09:00)
[2022-09-01] MEDS: INSULIN GLARGINE,HUM 300 UNITS/3 ML CARTRIDGE SQ SCH (09:40)
[2022-09-01 11:33] VITALS: BP 125/52
[2022-09-01] MEDS ORDERED: ACET-2154 PO (17:38)
[2022-09-01] MEDS ORDERED: ALLO100T PO (17:38)
[2022-09-01] MEDS ORDERED: METH2.5T PO (17:39)
[2022-09-01] MEDS ORDERED: INSU100V10 SQ (17:39)
[2022-09-01] MEDS ORDERED: AMYL1CAP58 PO (17:39)
[2022-09-01] MEDS ORDERED: TROS20TA3 PO (17:39)
[2022-09-01] MEDS ORDERED: NATE120T6 PO (17:39)
[2022-09-01] MEDS ORDERED: CARV12.52 PO (17:39)
[2022-09-01] MEDS ORDERED: ASPI-866 PO (17:39)
[2022-09-01] MEDS ORDERED: LINA145C PO (17:39)
[2022-09-01] MEDS ORDERED: FOLI1TAB94 PO (17:39)
[2022-09-01] MEDS ORDERED: LINA1TAB3 PO (17:39)
[2022-09-01] MEDS ORDERED: MV M PO (17:39)
[2022-09-01] MEDS ORDERED: OMEG1CAP55 PO (17:39)
[2022-09-01] MEDS ORDERED: FINA5TAB11 PO (17:39)
[2022-09-01] MEDS ORDERED: FURO40TA5 PO (17:39)
[2022-09-01] MEDS ORDERED: MIRA25TA PO (17:39)
[2022-09-01] MEDS ORDERED: OMEP20CA15 PO (17:39)
[2022-09-01] MEDS ORDERED: BLOO-668 IN (17:39)
[2022-09-01] MEDS ORDERED: FERR325T28 PO (17:39)
[2022-09-01] MEDS ORDERED: TERA2CAP4 PO (17:39)
[2022-09-01] MEDS ORDERED: ROSU5TAB PO (17:39)
[2022-09-01] MEDS ORDERED: CHOL200059 PO (18:27)
== END 2022-09-01 15:43 | DRG 871 ==
LOC: ER 11:15 → TRANSITION 17:37 → TELE3 20:33 → MEDSURG3 09-01 10:35
PROVIDERS: ADMIT Internal Medicine; ATTEND Nurse Practitioner Family
PROC: 05H633Z Insertion of Infusion Device into Left Subclavian Vein, Percutaneous Approach (ICD-10-PCS; principal; 2022-08-21)
PROC: B547ZZA Ultrasonography of Left Subclavian Vein, Guidance (ICD-10-PCS; 2022-08-21)
PROC: 05H533Z Insertion of Infusion Device into Right Subclavian Vein, Percutaneous Approach (ICD-10-PCS; 2022-08-25)
PROC: B546ZZA Ultrasonography of Right Subclavian Vein, Guidance (ICD-10-PCS; 2022-08-25)
PROC: 009U3ZX Drainage of Spinal Canal, Percutaneous Approach, Diagnostic (ICD-10-PCS; 2022-08-27)
PROC: B01BYZZ Fluoroscopy of Spinal Cord using Other Contrast (ICD-10-PCS; 2022-08-27)
DX: A41.9 Sepsis, unspecified organism (principal); J15.9 Unspecified bacterial pneumonia; N17.0 Acute kidney failure with tubular necrosis; J96.01 Acute respiratory failure with hypoxia; E44.0 Moderate protein-calorie malnutrition; E87.20 Acidosis, unspecified; E87.1 Hypo-osmolality and hyponatremia; I31.39 Other pericardial effusion (noninflammatory); R18.8 Other ascites; I50.32 Chronic diastolic (congestive) heart failure; I13.0 Hypertensive heart and chronic kidney disease with heart failure and stage 1 through stage 4 chronic kidney disease, or unspecified chronic kidney disease; J90 Pleural effusion, not elsewhere classified; J98.11 Atelectasis; G93.40 Encephalopathy, unspecified; R65.20 Severe sepsis without septic shock; D69.6 Thrombocytopenia, unspecified; E11.65 Type 2 diabetes mellitus with hyperglycemia; E83.39 Other disorders of phosphorus metabolism; E78.5 Hyperlipidemia, unspecified; E88.09 Other disorders of plasma-protein metabolism, not elsewhere classified; Z79.84 Long term (current) use of oral hypoglycemic drugs; Z87.440 Personal history of urinary (tract) infections; N18.9 Chronic kidney disease, unspecified; K59.00 Constipation, unspecified; Z79.4 Long term (current) use of insulin; Z79.82 Long term (current) use of aspirin; E11.22 Type 2 diabetes mellitus with diabetic chronic kidney disease; M10.9 Gout, unspecified; Z68.30 Body mass index [BMI] 30.0-30.9, adult; N40.0 Benign prostatic hyperplasia without lower urinary tract symptoms; N40.1 Benign prostatic hyperplasia with lower urinary tract symptoms; R16.1 Splenomegaly, not elsewhere classified; K57.30 Diverticulosis of large intestine without perforation or abscess without bleeding; K42.9 Umbilical hernia without obstruction or gangrene; Z20.822 Contact with and (suspected) exposure to COVID-19; I65.21 Occlusion and stenosis of right carotid artery; J43.9 Emphysema, unspecified
CPT/HCPCS: 36415; 62270; 70030-TC; 70450; 70551; 71045; 71250; 72125; 78579; 83605; 83735; 84100; 84484; 85025; 85610; 85730; 86803; 87040; 87086; 87205; 87806; 89051; 93005; 93307; 93880; A4663; A6213; A9540; G0378; J0692; J1644; J1815; J3370; J3475; J3486; J7040; J7050; J7070; J8499

== ENCOUNTER 2022-09-01 16:32 | Inpatient (IN) | payer MEDICARE, OTHER ==
[~2022-09-01] VITALS: Ht 167.6 cm; Wt 74.4 kg
[2022-09-01 16:00] VITALS: BP 109/67
[~2022-09-01 16:32] MED LIST changes: -AMLO2.5T2 PO; +CARV12.52 PO; -CARV25TA PO; -CICL6.6S5 TP; -FERR325T28 PO; +FERR325T30 PO; +FURO-151 PO; +LINA145C PO; -LINA5TAB PO; +METH2.5T PO; +MV-M1TAB18 PO; +OMEG1CAP55 PO
--- NOTE | 2022-09-01 17:00 | NUR ---
PT WAS DISCHARGE FROM [facility] AND ADMITTED TO ARU. PT AO X2-3.CONFUSED AT TIMES. MONTENEGRIN SPEAKING. SKIN INTACT. NO IV ACCESS. FC PATENT AND DRAINING CLEAR AND YELLOW URINE. PT ON PUREED DIET. CRUSH MEDS. PT,OT, AND ST WAS ORDERED FOR EVAL. MEDS REPORTED. F/U WITH ADMIT DR FOR MEDS RECONCILIATION. WILL ENDORSED TO ONCOMING RN.
[2022-09-01] MEDS ORDERED: ALLO100T PO (17:38)
[2022-09-01] MEDS ORDERED: ACET-2154 PO (17:38)
[2022-09-01] MEDS ORDERED: MV M PO (17:39)
[2022-09-01] MEDS ORDERED: OMEP20CA15 PO (17:39)
[2022-09-01] MEDS ORDERED: NATE120T6 PO (17:39)
[2022-09-01] MEDS ORDERED: ROSU5TAB PO (17:39)
[2022-09-01] MEDS ORDERED: LINA145C PO (17:39)
[2022-09-01] MEDS ORDERED: CARV12.52 PO (17:39)
[2022-09-01] MEDS ORDERED: FURO40TA5 PO (17:39)
[2022-09-01] MEDS ORDERED: ASPI-866 PO (17:39)
[2022-09-01] MEDS ORDERED: TERA2CAP4 PO (17:39)
[2022-09-01] MEDS ORDERED: BLOO-668 IN (17:39)
[2022-09-01] MEDS ORDERED: INSU100V10 SQ (17:39)
[2022-09-01] MEDS ORDERED: OMEG1CAP55 PO (17:39)
[2022-09-01] MEDS ORDERED: METH2.5T PO (17:39)
[2022-09-01] MEDS ORDERED: AMYL1CAP58 PO (17:39)
[2022-09-01] MEDS ORDERED: FINA5TAB11 PO (17:39)
[2022-09-01] MEDS ORDERED: MIRA25TA PO (17:39)
[2022-09-01] MEDS ORDERED: FERR325T28 PO (17:39)
[2022-09-01] MEDS ORDERED: TROS20TA3 PO (17:39)
[2022-09-01] MEDS ORDERED: LINA1TAB3 PO (17:39)
[2022-09-01] MEDS ORDERED: FOLI1TAB94 PO (17:39)
[2022-09-01] MEDS ORDERED: CHOL200059 PO (18:27)
[2022-09-01 20:00] VITALS: BP 154/56
[2022-09-01] MEDS ORDERED: DEXTROSE 50% 50 ML DISP.SYRIN IV PRN (21:30)
[2022-09-01] MEDS: TERAZOSIN 1 MG CAPSULE PO SCH (21:59)
[2022-09-01] MEDS: CARVEDILOL 12.5 MG TABLET PO SCH (22:01)
[2022-09-01] MEDS: ATORVASTATIN 10 MG TABLET PO SCH (22:02)
[2022-09-01] MEDS: INSULIN REGULAR, HUMAN 300 UNIT/3 ML VIAL SQ PRN (23:41)
[2022-09-01] MEDS: INSULIN GLARGINE,HUM 300 UNITS/3 ML CARTRIDGE SQ SCH (23:57)
[2022-09-02 04:00] VITALS: BP 145/60
--- NOTE | 2022-09-02 06:03 | NUR ---
SHIFT NOTES: RECEIVED REPORT FROM AM NURSE LAVONNE PT IS ALERT AND ORIENTED NOW HE IS IN ARU NO SIGNS OF DISTRESS NOTED. PT HS BLOOD SUGAR 187 AND 3 UNITS OF REGULAR INSULIN AND GAVE 26 UNITS OF LANTUS PT SHOWED NO SIGNS OF DIABETIC REACTION WILL CONTINUE TO MONITOR FOR SAFETY. AND ENDORSE TO AM NURSE.
[2022-09-02] MEDS: BLOOD SUGAR DIAGNOSTIC 1 EACH STRIP VI SCH ×4 (06:40→20:40)
[2022-09-02 07:55] VITALS: BP 128/66
[2022-09-02] MEDS: FOLIC ACID 1 MG TABLET PO SCH (08:49)
[2022-09-02] MEDS: CLOPIDOGREL 75 MG TABLET PO SCH (08:49)
[2022-09-02] MEDS: MEGESTROL ACETATE 20 MG TABLET PO SCH ×2 (08:49→17:40)
[2022-09-02] MEDS: FINASTERIDE 5 MG TABLET PO SCH (08:49)
[2022-09-02] MEDS: FERROUS SULFATE 325 MG TABEC PO SCH (08:49)
[2022-09-02] MEDS: CHOLECALCIFEROL 1,000 UNIT TABLET PO SCH (08:49)
[2022-09-02] MEDS: ASPIRIN EC 81 MG TABLET.DR PO SCH (08:50)
[2022-09-02] MEDS: CARVEDILOL 12.5 MG TABLET PO SCH ×2 (08:50→20:37)
[2022-09-02] MEDS: ALLOPURINOL 100 MG TABLET PO SCH (08:50)
[2022-09-02] MEDS: HEPARIN SODIUM,PORCINE 5,000 UNITS/ML VIAL SQ SCH ×2 (08:52→20:40)
[2022-09-02] MEDS ORDERED: FUROSEMIDE 40 MG TABLET PO SCH (09:00)
[2022-09-02] MEDS: FLUTICASONE/VILANTEROL 1 EACH BLST.W.DEV INH SCH (10:22)
[2022-09-02] MEDS: INSULIN REGULAR, HUMAN 300 UNIT/3 ML VIAL SQ PRN ×2 (11:31→20:16)
[2022-09-02 15:54] VITALS: BP 151/62
[2022-09-02] MEDS: GLUCERNA SHAKE 237 ML CAN PO SCH (17:38)
[2022-09-02] MEDS ORDERED: INSULIN DETEMIR 300 UNIT/3 ML CARTRIDGE SQ SCH (18:00)
[2022-09-02 20:00] VITALS: BP 126/51
[2022-09-02] MEDS: INSULIN GLARGINE,HUM 300 UNITS/3 ML CARTRIDGE SQ SCH (20:15)
[2022-09-02] MEDS: TERAZOSIN 1 MG CAPSULE PO SCH (20:36)
[2022-09-02] MEDS: ATORVASTATIN 10 MG TABLET PO SCH (20:37)
[2022-09-03 04:00] VITALS: BP 144/62
[2022-09-03] MEDS: BLOOD SUGAR DIAGNOSTIC 1 EACH STRIP VI SCH ×4 (06:16→21:16)
[2022-09-03 08:09] VITALS: BP 176/72
[2022-09-03] MEDS: MEGESTROL ACETATE 20 MG TABLET PO SCH ×2 (08:37→17:04)
[2022-09-03] MEDS: ALLOPURINOL 100 MG TABLET PO SCH (08:37)
[2022-09-03] MEDS: CHOLECALCIFEROL 1,000 UNIT TABLET PO SCH (08:37)
[2022-09-03] MEDS: ASPIRIN EC 81 MG TABLET.DR PO SCH (08:37)
[2022-09-03] MEDS: FINASTERIDE 5 MG TABLET PO SCH (08:37)
[2022-09-03] MEDS: CLOPIDOGREL 75 MG TABLET PO SCH (08:38)
[2022-09-03] MEDS: FOLIC ACID 1 MG TABLET PO SCH (08:38)
[2022-09-03] MEDS: CARVEDILOL 12.5 MG TABLET PO SCH ×2 (08:38→21:54)
[2022-09-03] MEDS: FERROUS SULFATE 325 MG TABEC PO SCH (08:38)
[2022-09-03] MEDS: GLUCERNA SHAKE 237 ML CAN PO SCH ×2 (08:39→17:04)
[2022-09-03] MEDS: HEPARIN SODIUM,PORCINE 5,000 UNITS/ML VIAL SQ SCH ×2 (08:39→21:56)
[2022-09-03] MEDS: FLUTICASONE/VILANTEROL 1 EACH BLST.W.DEV INH SCH (09:55)
[2022-09-03] MEDS: INSULIN REGULAR, HUMAN 300 UNIT/3 ML VIAL SQ PRN ×3 (12:18→21:29)
--- NOTE | 2022-09-03 14:07 | NUR ---
INTERDISCIPLINARY TEAM CONFERENCE
[2022-09-03 16:05] VITALS: BP 122/62
--- NOTE | 2022-09-03 18:24 | NUR ---
0705-rec'd patient in bed, awake, alert and able to verbalize her needs. On R/A, no physical or respiratory distress noted. Call light at reach. 0900-All due medication administered as ordered with no ASE noted, oral fluids taken well. No C/O any pain or discomfort. 1800-Per patient's request to change her orders for Oxycodone as follows:Oxycodone 5mg at 0900, 5mg at 1300 and 10mg at HS for pain management, order obtained from Dr. Reyes and notified pharmacy. Dressings to left hip/mid lat thigh and lateral near knee changed. No bleeding, drainage or c/o pain.
--- NOTE | 2022-09-03 18:29 | NUR ---
0730-Patient in bed, responsive to self, Bahamian speaking. On R/A jaylen. well. Safety measures in place, No facial grimaces or moaning noted. Call light within reach. 0900-Patient able to consumed 100% of his breakfast, requires assist to be fed, took oral fluids well. Due medication administered as ordered, no ASE noted. No S/S of hypo/hyperglycemia noted. 1800-Patient became somewhat agitated, pulling on his catheter, provided redirection and able to calmed down. Acevedo cath placed under leg to prevent from pulling-free of any kinks and draining to gravity. All needs anticipated and met.
[2022-09-03 20:00] VITALS: BP 144/55
--- NOTE | 2022-09-03 20:00 | NUR ---
RECD IN SEMI FOWLERS POSITION. IN NO ACUTE DISTRESS. VITAL SIGNS ARE STABLE. SLEPT INTERMITTENTLY, NO S/S OF DIABETIC CRISIS.
[2022-09-03] MEDS: INSULIN GLARGINE,HUM 300 UNITS/3 ML CARTRIDGE SQ SCH (21:47)
[2022-09-03] MEDS: TERAZOSIN 1 MG CAPSULE PO SCH (21:54)
[2022-09-03] MEDS: ATORVASTATIN 10 MG TABLET PO SCH (21:55)
[2022-09-04 04:00] VITALS: BP 142/55
[2022-09-04] MEDS: BLOOD SUGAR DIAGNOSTIC 1 EACH STRIP VI SCH ×4 (06:23→21:24)
--- NOTE | 2022-09-04 07:49 | NUR ---
PATIENT ASLEEP, NO ACUTE RESPIRATORY DISTRESS NOTED. SKIN W/D TO THE TOUCH, AFEBRILE. NO MOANING OR FACIAL GRIMACES. LOZOYA CATHETER DRAINING TO GRAVITY. SAFETY MEASURES IN PLACE AND CALL LIGHT WITHIN REACH.
[2022-09-04 08:00] VITALS: BP 134/68
[2022-09-04] MEDS: GLUCERNA SHAKE 237 ML CAN PO SCH ×2 (08:16→17:03)
--- NOTE | 2022-09-04 08:22 | NUR ---
INDIVIDUALIZED PLAN OF CARE
[2022-09-04] MEDS: MEGESTROL ACETATE 20 MG TABLET PO SCH ×2 (08:51→17:04)
[2022-09-04] MEDS: FERROUS SULFATE 325 MG TABEC PO SCH (08:51)
[2022-09-04] MEDS: FINASTERIDE 5 MG TABLET PO SCH (08:51)
[2022-09-04] MEDS: ASPIRIN EC 81 MG TABLET.DR PO SCH (08:51)
[2022-09-04] MEDS: ALLOPURINOL 100 MG TABLET PO SCH (08:51)
[2022-09-04] MEDS: CHOLECALCIFEROL 1,000 UNIT TABLET PO SCH (08:51)
[2022-09-04] MEDS: CARVEDILOL 12.5 MG TABLET PO SCH ×2 (08:51→21:14)
[2022-09-04] MEDS: HEPARIN SODIUM,PORCINE 5,000 UNITS/ML VIAL SQ SCH ×2 (08:52→21:16)
[2022-09-04] MEDS: FLUTICASONE/VILANTEROL 1 EACH BLST.W.DEV INH SCH (08:54)
[2022-09-04] MEDS: CLOPIDOGREL 75 MG TABLET PO SCH (08:54)
[2022-09-04] MEDS: FOLIC ACID 1 MG TABLET PO SCH (08:54)
--- NOTE | 2022-09-04 09:34 | NUR ---
0900-DUE MEDICATIONS ADMINISTERED AND TAKEN WELL, ORAL FLUIDS ENCOURAGED ROXANNE. ASPIRATION PRECAUTIONS OBSERVED, NO COUGHING/S/S OF CHOCKING NOTED, SUPERVISION AND ASSIST PROVIDED DURING MEAL TIMES.
[2022-09-04] MEDS: INSULIN REGULAR, HUMAN 300 UNIT/3 ML VIAL SQ PRN ×3 (11:27→21:35)
[2022-09-04] MEDS: ACETAMINOPHEN 325 MG TABLET PO PRN (14:11)
[2022-09-04 15:15] VITALS: BP 140/60
--- NOTE | 2022-09-04 17:58 | NUR ---
Per 's request to DC burns catheter, " he never had a burns catheter at home" relayed to Dr. Reyes and per to DC burns catheter. Order noted and carried out.
--- NOTE | 2022-09-04 19:00 | NUR ---
PT QUIETLY RESTING IN BED WITH SAFETY FEATURES ON. NO ABDOMINAL DISTENTION. DIAPER IN PLACE. WILL CHECK FOR URINARY RETENTION.
[2022-09-04] MEDS: TERAZOSIN 1 MG CAPSULE PO SCH (21:14)
[2022-09-04] MEDS: ATORVASTATIN 10 MG TABLET PO SCH (21:14)
[2022-09-04] MEDS: REMEDY ESSENTIAL ZINC PASTE 113 GM TOP PRN (21:36)
[2022-09-04 21:39] VITALS: BP 161/76
[2022-09-04] MEDS: INSULIN GLARGINE,HUM 300 UNITS/3 ML CARTRIDGE SQ SCH (21:41)
--- NOTE | 2022-09-04 22:00 | NUR ---
PT HS CARE DONE. KEPT DRY AND CLEAN. NO S/S OF DIABETIC CRISIS. DUE MEDS GIVEN. INSULIN ADMINISTERED PER SLIDING SCALE. SLIGHTLY AGITATED DURING MED ADMINISTRATION.
[2022-09-05 04:55] VITALS: BP 127/61
--- NOTE | 2022-09-05 06:10 | NUR ---
INCONTINENT OF URINE. KEPT DRY AND CLEAN. NO BLADDER DISTENTION. SLEPT INTERMITTENTLY.
[2022-09-05] MEDS: BLOOD SUGAR DIAGNOSTIC 1 EACH STRIP VI SCH ×4 (06:51→20:12)
--- NOTE | 2022-09-05 06:52 | NUR ---
PT REFUSED ACCUCHECK. GETTING AGITATED, INCONTINENT OF LARGE AMOUNT OF URINE. CHANGED DIAPER AND KEPT DRY. ATTEMPTED TO GET OUT OF BED, ASSISTED TO BATHROOM WITH MAX ASSIST.
[2022-09-05 07:29] VITALS: BP 144/66
[2022-09-05] MEDS: FOLIC ACID 1 MG TABLET PO SCH (09:39)
[2022-09-05] MEDS: MEGESTROL ACETATE 20 MG TABLET PO SCH ×2 (09:39→16:57)
[2022-09-05] MEDS: CHOLECALCIFEROL 1,000 UNIT TABLET PO SCH (09:39)
[2022-09-05] MEDS: ALLOPURINOL 100 MG TABLET PO SCH (09:39)
[2022-09-05] MEDS: CLOPIDOGREL 75 MG TABLET PO SCH (09:39)
[2022-09-05] MEDS: FINASTERIDE 5 MG TABLET PO SCH (09:39)
[2022-09-05] MEDS: ASPIRIN EC 81 MG TABLET.DR PO SCH (09:39)
[2022-09-05] MEDS: CARVEDILOL 12.5 MG TABLET PO SCH ×2 (09:39→20:51)
[2022-09-05] MEDS: FERROUS SULFATE 325 MG TABEC PO SCH (09:40)
[2022-09-05] MEDS: GLUCERNA SHAKE 237 ML CAN PO SCH ×2 (09:40→16:57)
[2022-09-05] MEDS: HEPARIN SODIUM,PORCINE 5,000 UNITS/ML VIAL SQ SCH ×2 (09:40→20:50)
[2022-09-05] MEDS: FLUTICASONE/VILANTEROL 1 EACH BLST.W.DEV INH SCH (09:40)
[2022-09-05 15:48] VITALS: BP 154/62
[2022-09-05] MEDS: INSULIN GLARGINE,HUM 300 UNITS/3 ML CARTRIDGE SQ SCH (20:12)
[2022-09-05] MEDS: INSULIN REGULAR, HUMAN 300 UNIT/3 ML VIAL SQ PRN (20:13)
[2022-09-05] MEDS: TERAZOSIN 1 MG CAPSULE PO SCH (20:50)
[2022-09-05] MEDS: ATORVASTATIN 10 MG TABLET PO SCH (20:50)
[2022-09-05 20:51] VITALS: BP 125/57
[2022-09-06] MEDS: BLOOD SUGAR DIAGNOSTIC 1 EACH STRIP VI SCH ×4 (06:17→20:19)
[2022-09-06 07:32] VITALS: BP 116/45
[2022-09-06] MEDS: CHOLECALCIFEROL 1,000 UNIT TABLET PO SCH (11:29)
[2022-09-06] MEDS: METHOTREXATE SODIUM 2.5 MG TABLET PO SCH (11:29)
[2022-09-06] MEDS: FOLIC ACID 1 MG TABLET PO SCH (11:30)
[2022-09-06] MEDS: CARVEDILOL 12.5 MG TABLET PO SCH ×2 (11:30→20:19)
[2022-09-06] MEDS: CLOPIDOGREL 75 MG TABLET PO SCH (11:30)
[2022-09-06] MEDS: MEGESTROL ACETATE 20 MG TABLET PO SCH ×2 (11:30→16:37)
[2022-09-06] MEDS: ALLOPURINOL 100 MG TABLET PO SCH (11:31)
[2022-09-06] MEDS: ASPIRIN EC 81 MG TABLET.DR PO SCH (11:31)
[2022-09-06] MEDS: FINASTERIDE 5 MG TABLET PO SCH (11:31)
[2022-09-06] MEDS: FERROUS SULFATE 325 MG TABEC PO SCH (11:31)
[2022-09-06] MEDS: FLUTICASONE/VILANTEROL 1 EACH BLST.W.DEV INH SCH (11:33)
[2022-09-06] MEDS: HEPARIN SODIUM,PORCINE 5,000 UNITS/ML VIAL SQ SCH ×2 (11:33→22:44)
[2022-09-06] MEDS: GLUCERNA SHAKE 237 ML CAN PO SCH ×2 (11:35→16:37)
[2022-09-06 15:40] VITALS: BP 141/81
[2022-09-06] MEDS: TERAZOSIN 1 MG CAPSULE PO SCH (20:18)
[2022-09-06] MEDS: ATORVASTATIN 10 MG TABLET PO SCH (20:19)
[2022-09-06] MEDS: INSULIN REGULAR, HUMAN 300 UNIT/3 ML VIAL SQ PRN (20:24)
[2022-09-06] MEDS: INSULIN GLARGINE,HUM 300 UNITS/3 ML CARTRIDGE SQ SCH (20:25)
[2022-09-06 20:39] VITALS: BP 163/63
[2022-09-07 04:29] VITALS: BP 142/74
[2022-09-07] MEDS: BLOOD SUGAR DIAGNOSTIC 1 EACH STRIP VI SCH ×4 (06:40→20:27)
[2022-09-07 07:55] VITALS: BP 165/78
[2022-09-07] MEDS: FOLIC ACID 1 MG TABLET PO SCH (09:36)
[2022-09-07] MEDS: ASPIRIN EC 81 MG TABLET.DR PO SCH (09:36)
[2022-09-07] MEDS: FERROUS SULFATE 325 MG TABEC PO SCH (09:36)
[2022-09-07] MEDS: FINASTERIDE 5 MG TABLET PO SCH (09:36)
[2022-09-07] MEDS: CLOPIDOGREL 75 MG TABLET PO SCH (09:36)
[2022-09-07] MEDS: CHOLECALCIFEROL 1,000 UNIT TABLET PO SCH (09:36)
[2022-09-07] MEDS: MEGESTROL ACETATE 20 MG TABLET PO SCH ×2 (09:36→18:02)
[2022-09-07] MEDS: ALLOPURINOL 100 MG TABLET PO SCH (09:36)
[2022-09-07] MEDS: HEPARIN SODIUM,PORCINE 5,000 UNITS/ML VIAL SQ SCH ×2 (09:37→20:57)
[2022-09-07] MEDS: CARVEDILOL 12.5 MG TABLET PO SCH ×2 (09:44→20:27)
[2022-09-07] MEDS: FLUTICASONE/VILANTEROL 1 EACH BLST.W.DEV INH SCH (09:44)
[2022-09-07] MEDS: GLUCERNA SHAKE 237 ML CAN PO SCH ×2 (09:45→18:02)
[2022-09-07 16:04] VITALS: BP 177/75
[2022-09-07] MEDS: NUTRISOURCE FIBER 4 GM PACKET PO SCH (18:05)
[2022-09-07] MEDS: INSULIN REGULAR, HUMAN 300 UNIT/3 ML VIAL SQ PRN ×2 (18:07→21:06)
[2022-09-07 20:18] VITALS: BP 135/62
[2022-09-07] MEDS: TERAZOSIN 1 MG CAPSULE PO SCH (20:26)
[2022-09-07] MEDS: ATORVASTATIN 10 MG TABLET PO SCH (20:27)
[2022-09-07] MEDS: INSULIN GLARGINE,HUM 300 UNITS/3 ML CARTRIDGE SQ SCH (21:01)
[2022-09-08 04:27] VITALS: BP 157/66
[2022-09-08] MEDS: BLOOD SUGAR DIAGNOSTIC 1 EACH STRIP VI SCH ×4 (06:21→20:40)
[2022-09-08 06:39] LABS: HEMATOCRIT 32.5 % (36.7-47.1); MEAN CORPUSCULAR HEMOGLOBIN 30.4 uug (23.8-33.4); MEAN CORPUSCULAR VOLUME 90.2 fL (73.0-96.2); PLATELET COUNT (AUTO) 196 K/uL (152-348)
--- NOTE | 2022-09-08 06:58 | NUR ---
Patient in bed at this time, confused menta state, quiet, no sob, no acute distress noted. continue to monitor.
[2022-09-08 07:16] LABS: ALANINE AMINOTRANSFERASE 27 U/L (16-63); ALKALINE PHOSPHATASE 102 U/L (50-136); ASPARTATE AMINOTRANSFERASE 24 U/L (15-37); BILIRUBIN,TOTAL 0.5 mg/dL (0.2-1.0); CARBON DIOXIDE 29 mmol/L (21-32); CHLORIDE 107 mmol/L (98-107); CREATININE 1.4 mg/dL (0.6-1.3); GLUCOSE 139 mg/dL (74-106); MAGNESIUM 1.8 mg/dL (1.8-2.4); PHOSPHOROUS 4.2 mg/dL (2.5-4.9); POTASSIUM 3.9 mmol/L (3.5-5.1); UREA NITROGEN, BLOOD 23 mg/dL (7-18)
[2022-09-08 08:02] VITALS: BP 108/54
[2022-09-08] MEDS: CARVEDILOL 12.5 MG TABLET PO SCH ×2 (09:00→20:41)
[2022-09-08] MEDS: CHOLECALCIFEROL 1,000 UNIT TABLET PO SCH (10:10)
[2022-09-08] MEDS: CLOPIDOGREL 75 MG TABLET PO SCH (10:10)
[2022-09-08] MEDS: ASPIRIN EC 81 MG TABLET.DR PO SCH (10:11)
[2022-09-08] MEDS: FERROUS SULFATE 325 MG TABEC PO SCH (10:11)
[2022-09-08] MEDS: MEGESTROL ACETATE 20 MG TABLET PO SCH ×2 (10:11→16:40)
[2022-09-08] MEDS: FINASTERIDE 5 MG TABLET PO SCH (10:11)
[2022-09-08] MEDS: FOLIC ACID 1 MG TABLET PO SCH (10:11)
[2022-09-08] MEDS: ALLOPURINOL 100 MG TABLET PO SCH (10:11)
[2022-09-08] MEDS: HEPARIN SODIUM,PORCINE 5,000 UNITS/ML VIAL SQ SCH ×2 (10:12→20:46)
[2022-09-08] MEDS: GLUCERNA SHAKE 237 ML CAN PO SCH ×2 (10:13→16:41)
[2022-09-08] MEDS: FLUTICASONE/VILANTEROL 1 EACH BLST.W.DEV INH SCH (10:13)
[2022-09-08] MEDS: NUTRISOURCE FIBER 4 GM PACKET PO SCH ×2 (10:30→16:41)
[2022-09-08] MEDS: INSULIN REGULAR, HUMAN 300 UNIT/3 ML VIAL SQ PRN ×3 (11:36→20:50)
[2022-09-08 16:37] VITALS: BP 120/64
[2022-09-08] MEDS: ATORVASTATIN 10 MG TABLET PO SCH (20:40)
[2022-09-08] MEDS: TERAZOSIN 1 MG CAPSULE PO SCH (20:44)
[2022-09-08] MEDS: INSULIN GLARGINE,HUM 300 UNITS/3 ML CARTRIDGE SQ SCH (20:48)
[2022-09-08 20:51] VITALS: BP 122/65
[2022-09-09 04:27] VITALS: BP 141/61
[2022-09-09] MEDS: BLOOD SUGAR DIAGNOSTIC 1 EACH STRIP VI SCH ×4 (06:49→20:59)
[2022-09-09] MEDS: GLUCERNA SHAKE 237 ML CAN PO SCH ×2 (08:58→17:07)
[2022-09-09] MEDS: FLUTICASONE/VILANTEROL 1 EACH BLST.W.DEV INH SCH (08:58)
[2022-09-09] MEDS: MEGESTROL ACETATE 20 MG TABLET PO SCH ×2 (09:00→17:07)
[2022-09-09] MEDS: CHOLECALCIFEROL 1,000 UNIT TABLET PO SCH (09:00)
[2022-09-09] MEDS: FINASTERIDE 5 MG TABLET PO SCH (09:00)
[2022-09-09] MEDS: ASPIRIN EC 81 MG TABLET.DR PO SCH (09:00)
[2022-09-09] MEDS: CARVEDILOL 12.5 MG TABLET PO SCH ×2 (09:00→20:40)
[2022-09-09] MEDS: ALLOPURINOL 100 MG TABLET PO SCH (09:00)
[2022-09-09] MEDS: FERROUS SULFATE 325 MG TABEC PO SCH (09:00)
[2022-09-09] MEDS: HEPARIN SODIUM,PORCINE 5,000 UNITS/ML VIAL SQ SCH ×2 (09:10→20:47)
[2022-09-09] MEDS: NUTRISOURCE FIBER 4 GM PACKET PO SCH ×2 (09:15→17:08)
[2022-09-09] MEDS: FOLIC ACID 1 MG TABLET PO SCH (09:15)
[2022-09-09] MEDS: CLOPIDOGREL 75 MG TABLET PO SCH (09:16)
--- NOTE | 2022-09-09 10:27 | NUR ---
0730-REC'D PATIENT IN BED, ASLEEP, ABLE TO WAKE UP ON GENTLY TOUCH, DENIES PAIN, NO RESPIRATORY DISTRESS NOTED. SAFETY MEASURES IN PLACE AND CALL LIGHT AT REACH. 0930-SCHEDULED MEDICATIONS ADMINISTERED, NO ASE NOTED. ORAL FLUIDS TAKEN WELL. PATIENT OOB ON W/C, EATING BREAKFAST AND ROXANNE. WELL, NO N/V NOTED.
[2022-09-09 11:12] VITALS: BP 94/42
[2022-09-09] MEDS: INSULIN REGULAR, HUMAN 300 UNIT/3 ML VIAL SQ PRN ×3 (12:10→20:52)
[2022-09-09 15:30] VITALS: BP 131/66
--- NOTE | 2022-09-09 19:21 | NUR ---
5:30PM-PATIENT SITTING AT BEDSIDE, PATIENT WAS HOLDING A STUFF ANIMAL FROM HOME. CALL LIGHT AT REACH; BED ALARM ON AND ON WORKING MODE. OFFERED HELP TO PATIENT, PATIENT STATED NOT TO NEED ANY HELP (USED COMMERCIAL SALES CONSULTANT) PATIENT CONTINUE TO HOLD THE STUFFED ANIMAL. ENCOURAGED PATIENT TO PLEASE USE CALL LIGHT FOR HELP. 5:45PM-BED ALARM WENT OFF, RAN TO ASSIST PATIENT. UNABLE TO MAKE IT ON TIME DUE TO TOO SUDDEN. PATIENT FOUND ONTO A SITTING POSITION ON FLOOR NEXT TO BED/BED AT LOWEST POSITION. IMMEDIATELY ASSESSED PATIENT, GENTLY ROM PROVIDED AND ROXANNE. WELL, NO C/O ANY PAIN. NO MOANING OR FACIAL GRIMACES NOTED. ASSISTED PATIENT BACK TO HIS BED WITH MAXIMUM HELP OF THREE PERSON. PATIENT ABLE TO STAND UP SUPPORTED. NO CHANGES ON PHYSICAL LIMITATIONS FROM BASELINE NOTED. SAFETY PRECAUTIONS IMPLEMENTED. 6:09PM -NOTIFIED VIRGIL ZUÑIGA MD. UPDATED HER ON THE ABOVE EVENT AND PATIENT'S CURRENT CONDITION AND NO APPARENT INJURIES NOTED AT THIS TIME. PER VIRGIL, NO FURTHER INSTRUCTIONS AT THIS TIME, TO MONITOR AND REINFORCE SAFETY. 6:32PM-SPOKE TO LUDIMLA PATIENT'S DAUGHTER AND MADE HER AWARE OF ABOVE EVENT AND HER FATHERS CURRENT CONDITION. PER LUDMILA, " THANK YOU FOR LETTING ME KNOW, CAN I PLEASE TALK TO HIM?' OUMOU YEPEZ, ASSISTED LUDMILA AND HER FATHER WITH THE PHONE CALL 6:35PM-PATIENT IS IN BED, SAFETY MEASURES IN PLACE AND CALL LIGHT AT REACH, ROUTINE ROUNDS WITH FREQUENT VISUAL CHECKS DONE.
[2022-09-09 20:00] VITALS: BP 146/68
[2022-09-09] MEDS: ATORVASTATIN 10 MG TABLET PO SCH (20:39)
[2022-09-09] MEDS: INSULIN GLARGINE,HUM 300 UNITS/3 ML CARTRIDGE SQ SCH (20:49)
[2022-09-09] MEDS: TERAZOSIN 1 MG CAPSULE PO SCH (21:16)
--- NOTE | 2022-09-10 01:13 | NUR ---
ENTRY FOR 09/09/22, 8:11PM-DAUGHTER AT BEDSIDE VISITING PATIENT, PATIENT IN BED, AWAKE, CONVERSING WITH DAUGHTER. MEDICATION ADMINISTERED ORDERED, NO ASE NOTED. ORAL FLUIDS TAKEN WELL. PATIENT DENIES ANY PAIN OR DISCOMFORT.
--- NOTE | 2022-09-10 01:22 | NUR ---
0000-ROUTINE ROUNDS DONE, PATIENT IN BED, STILL AWAKE, CALM, APPEARS TO BE RESTING COMFORTABLY. ORAL FLUIDS ENCOURAGED TOLERATED. SAFETY MEASURES IN PLACE, BED ALARM ON AND IN FUNCTION ORDER. PATIENT HAD A BM, CARE RENDERED, REPOSITIONED TO PROMOTE COMFORT AND FACILITATE PRESSURE RELIEF. ALL SAFETY MEASURES IN PLACE, CALL LIGHT AT REACH. ROUTINE ROUNDS AND FREQUENT VISUAL CHECKS DONE.
[2022-09-10 04:00] VITALS: BP 138/72
[2022-09-10] MEDS: BLOOD SUGAR DIAGNOSTIC 1 EACH STRIP VI SCH ×5 (07:02→21:36)
[2022-09-10 08:05] VITALS: BP 131/62
[2022-09-10] MEDS: MEGESTROL ACETATE 20 MG TABLET PO SCH ×2 (08:48→17:28)
[2022-09-10] MEDS: CHOLECALCIFEROL 1,000 UNIT TABLET PO SCH (08:49)
[2022-09-10] MEDS: ASPIRIN EC 81 MG TABLET.DR PO SCH (08:49)
[2022-09-10] MEDS: FERROUS SULFATE 325 MG TABEC PO SCH (08:49)
[2022-09-10] MEDS: FOLIC ACID 1 MG TABLET PO SCH (08:49)
[2022-09-10] MEDS: FINASTERIDE 5 MG TABLET PO SCH (08:49)
[2022-09-10] MEDS: CARVEDILOL 12.5 MG TABLET PO SCH ×2 (08:49→20:41)
[2022-09-10] MEDS: CLOPIDOGREL 75 MG TABLET PO SCH (08:49)
[2022-09-10] MEDS: ALLOPURINOL 100 MG TABLET PO SCH (08:49)
[2022-09-10] MEDS: HEPARIN SODIUM,PORCINE 5,000 UNITS/ML VIAL SQ SCH ×2 (08:50→20:42)
[2022-09-10] MEDS: FLUTICASONE/VILANTEROL 1 EACH BLST.W.DEV INH SCH (08:58)
[2022-09-10] MEDS: NUTRISOURCE FIBER 4 GM PACKET PO SCH ×2 (08:58→17:28)
[2022-09-10] MEDS: GLUCERNA SHAKE 237 ML CAN PO SCH ×2 (08:58→17:28)
[2022-09-10 12:06] VITALS: BP 146/60
[2022-09-10] MEDS: INSULIN REGULAR, HUMAN 300 UNIT/3 ML VIAL SQ PRN ×2 (12:13→17:30)
[2022-09-10] MEDS: PROTEIN SUPPLEMENT (PROSTAT) 30 ML LIQUID PO SCH (12:30)
--- NOTE | 2022-09-10 15:39 | NUR ---
INTERDISCIPLINARY TEAM CONFERENCE
[2022-09-10 16:09] VITALS: BP 137/74
[2022-09-10] MEDS: ATORVASTATIN 10 MG TABLET PO SCH (20:41)
[2022-09-10] MEDS: INSULIN GLARGINE,HUM 300 UNITS/3 ML CARTRIDGE SQ SCH ×2 (20:43→21:48)
[2022-09-10] MEDS: TERAZOSIN 1 MG CAPSULE PO SCH (21:17)
[2022-09-11] MEDS: BLOOD SUGAR DIAGNOSTIC 1 EACH STRIP VI SCH ×3 (09:09→17:26)
[2022-09-11] MEDS: INSULIN REGULAR, HUMAN 300 UNIT/3 ML VIAL SQ PRN ×3 (09:11→17:28)
[2022-09-11] MEDS: MEGESTROL ACETATE 20 MG TABLET PO SCH ×2 (09:12→17:29)
[2022-09-11] MEDS: CARVEDILOL 12.5 MG TABLET PO SCH ×2 (09:12→22:54)
[2022-09-11] MEDS: FLUTICASONE/VILANTEROL 1 EACH BLST.W.DEV INH SCH (09:12)
[2022-09-11] MEDS: FINASTERIDE 5 MG TABLET PO SCH (09:13)
[2022-09-11] MEDS: FERROUS SULFATE 325 MG TABEC PO SCH (09:13)
[2022-09-11] MEDS: CLOPIDOGREL 75 MG TABLET PO SCH (09:13)
[2022-09-11] MEDS: ASPIRIN EC 81 MG TABLET.DR PO SCH (09:13)
[2022-09-11] MEDS: ALLOPURINOL 100 MG TABLET PO SCH (09:13)
[2022-09-11] MEDS: CHOLECALCIFEROL 1,000 UNIT TABLET PO SCH (09:13)
[2022-09-11] MEDS: FOLIC ACID 1 MG TABLET PO SCH (09:13)
[2022-09-11] MEDS: GLUCERNA SHAKE 237 ML CAN PO SCH ×2 (09:14→17:29)
[2022-09-11] MEDS: PROTEIN SUPPLEMENT (PROSTAT) 30 ML LIQUID PO SCH (09:14)
[2022-09-11] MEDS: NUTRISOURCE FIBER 4 GM PACKET PO SCH ×2 (09:15→17:29)
[2022-09-11] MEDS: HEPARIN SODIUM,PORCINE 5,000 UNITS/ML VIAL SQ SCH ×2 (09:16→22:58)
[2022-09-11] MEDS: ACETAMINOPHEN 325 MG TABLET PO PRN (13:07)
[2022-09-11 20:00] VITALS: BP 137/53
[2022-09-11] MEDS: ATORVASTATIN 10 MG TABLET PO SCH (22:54)
[2022-09-11] MEDS: TERAZOSIN 1 MG CAPSULE PO SCH (22:57)
[2022-09-12 04:00] VITALS: BP 151/58
[2022-09-12] MEDS: BLOOD SUGAR DIAGNOSTIC 1 EACH STRIP VI SCH ×4 (07:50→20:35)
[2022-09-12] MEDS: INSULIN REGULAR, HUMAN 300 UNIT/3 ML VIAL SQ PRN ×4 (08:12→20:44)
[2022-09-12] MEDS: FLUTICASONE/VILANTEROL 1 EACH BLST.W.DEV INH SCH (08:13)
[2022-09-12] MEDS: PROTEIN SUPPLEMENT (PROSTAT) 30 ML LIQUID PO SCH (08:13)
[2022-09-12] MEDS: GLUCERNA SHAKE 237 ML CAN PO SCH ×2 (08:13→16:16)
[2022-09-12] MEDS: FERROUS SULFATE 325 MG TABEC PO SCH (08:14)
[2022-09-12] MEDS: ALLOPURINOL 100 MG TABLET PO SCH (08:14)
[2022-09-12] MEDS: FOLIC ACID 1 MG TABLET PO SCH (08:14)
[2022-09-12] MEDS: FINASTERIDE 5 MG TABLET PO SCH (08:14)
[2022-09-12] MEDS: MEGESTROL ACETATE 20 MG TABLET PO SCH ×2 (08:14→16:16)
[2022-09-12] MEDS: ASPIRIN EC 81 MG TABLET.DR PO SCH (08:14)
[2022-09-12] MEDS: CLOPIDOGREL 75 MG TABLET PO SCH (08:14)
[2022-09-12] MEDS: CARVEDILOL 12.5 MG TABLET PO SCH ×2 (08:14→20:36)
[2022-09-12] MEDS: CHOLECALCIFEROL 1,000 UNIT TABLET PO SCH (08:14)
[2022-09-12] MEDS: NUTRISOURCE FIBER 4 GM PACKET PO SCH ×2 (08:15→16:17)
[2022-09-12] MEDS: HEPARIN SODIUM,PORCINE 5,000 UNITS/ML VIAL SQ SCH ×2 (08:16→20:40)
--- NOTE | 2022-09-12 18:36 | NUR ---
Patient always getting his clothes off, naked, combative when providing routine care.
--- NOTE | 2022-09-12 19:36 | NUR ---
psych consult placed, dr mena is aware. patient is yelling, screaming, and hitting, while providing care, removing his diaper and clothes.
--- NOTE | 2022-09-12 20:00 | NUR ---
NSG; Received patient sitting up in margi chair in his room. patient is confused , start yelling during thr adl's. no sob, no acute distress noted. call light w/in reach. continue to monitor.
[2022-09-12 20:32] VITALS: BP 148/62
[2022-09-12] MEDS: ATORVASTATIN 10 MG TABLET PO SCH (20:36)
[2022-09-12] MEDS: TERAZOSIN 1 MG CAPSULE PO SCH (20:37)
[2022-09-12] MEDS: INSULIN GLARGINE,HUM 300 UNITS/3 ML CARTRIDGE SQ SCH (20:43)
--- NOTE | 2022-09-13 05:58 | NUR ---
NSG: REMAIN UNCOOPERATIVE WITH CARE. ASSISTED WITH ADL'S. PATIENT ASLEEP, NO ACUTE RESPIRATORY DISTRESS NOTED. SKIN W/D TO THE TOUCH, AFEBRILE. SAFETY MEASURES IN PLACE AND CALL LIGHT W/IN REACH. CONTINUE PLAN OF CARE.
--- NOTE | 2022-09-13 06:49 | NUR ---
patient refused blood sugar check.
[2022-09-13] MEDS: BLOOD SUGAR DIAGNOSTIC 1 EACH STRIP VI SCH ×4 (07:14→20:50)
[2022-09-13 07:33] VITALS: BP 138/63
[2022-09-13 07:35] VITALS: BP 158/68
[2022-09-13] MEDS: GLUCERNA SHAKE 237 ML CAN PO SCH ×2 (08:00→16:13)
[2022-09-13] MEDS: PROTEIN SUPPLEMENT (PROSTAT) 30 ML LIQUID PO SCH (08:00)
[2022-09-13] MEDS: HEPARIN SODIUM,PORCINE 5,000 UNITS/ML VIAL SQ SCH ×2 (09:04→20:49)
[2022-09-13] MEDS: FOLIC ACID 1 MG TABLET PO SCH (09:06)
[2022-09-13] MEDS: FINASTERIDE 5 MG TABLET PO SCH (09:06)
[2022-09-13] MEDS: FERROUS SULFATE 325 MG TABEC PO SCH (09:06)
[2022-09-13] MEDS: CHOLECALCIFEROL 1,000 UNIT TABLET PO SCH (09:06)
[2022-09-13] MEDS: ASPIRIN EC 81 MG TABLET.DR PO SCH (09:06)
[2022-09-13] MEDS: FLUTICASONE/VILANTEROL 1 EACH BLST.W.DEV INH SCH (09:07)
[2022-09-13] MEDS: ALLOPURINOL 100 MG TABLET PO SCH (09:07)
[2022-09-13] MEDS: NUTRISOURCE FIBER 4 GM PACKET PO SCH ×2 (09:08→16:13)
[2022-09-13] MEDS: CLOPIDOGREL 75 MG TABLET PO SCH (09:08)
[2022-09-13] MEDS: CARVEDILOL 12.5 MG TABLET PO SCH ×2 (09:09→20:47)
[2022-09-13] MEDS: MEGESTROL ACETATE 20 MG TABLET PO SCH ×2 (09:13→16:12)
[2022-09-13] MEDS: METHOTREXATE SODIUM 2.5 MG TABLET PO SCH (09:14)
[2022-09-13] MEDS: QUETIAPINE FUMARATE 25 MG TABLET PO PRN (11:20)
[2022-09-13] MEDS: INSULIN REGULAR, HUMAN 300 UNIT/3 ML VIAL SQ PRN ×3 (11:30→20:51)
--- NOTE | 2022-09-13 11:43 | NUR ---
patient daughter ammy called and explained the new medications, daughter stated Addendum: 09/13/22 at 1249 by RICKEY POLANCO RN RN would like to talk to psychiatrist, explained to daughter that psychiatrist tired to call you but unable to reach. appropriate questions are answered. charge nurse answered as well. explained to daughter that patient removes his diaper, smears bm all over, removes his clothes, hits staff while giving care to patient.
[2022-09-13] MEDS: busPIRone 5 MG TABLET PO SCH ×2 (13:48→16:17)
[2022-09-13 15:23] VITALS: BP 113/47
[2022-09-13] MEDS: LORAZEPAM 0.5 MG TABLET PO PRN (18:19)
--- NOTE | 2022-09-13 19:35 | NUR ---
NSG; Received patient lying in bed in his room. patient is confused and uncooperative with staff. no sob, no acute distress noted. incontinent of b+b. call light w/in reach. continue to monitor.
[2022-09-13] MEDS ORDERED: LORAZEPAM 2 MG/1 ML VIAL IM ONE (19:45)
[2022-09-13 20:00] VITALS: BP 140/80
--- NOTE | 2022-09-13 20:00 | NUR ---
NSG: patient is very agitated . patient is hitting and spitting to staff while proving care. ativan 1 mg im given x1 for out of control behavior.
--- NOTE | 2022-09-13 20:30 | NUR ---
NSG: PATIENT RESTING IN BED COMFORTABLY. NO S/S OF SOB OR PAIN NOTED. PATIENT IS CALM NOW. PRN FOR AGITATION EFFECTIVE. CONTINUE PLAN OF CARE.
[2022-09-13] MEDS: ATORVASTATIN 10 MG TABLET PO SCH (20:40)
[2022-09-13] MEDS: TERAZOSIN 1 MG CAPSULE PO SCH (20:46)
[2022-09-13] MEDS: INSULIN GLARGINE,HUM 300 UNITS/3 ML CARTRIDGE SQ SCH (20:50)
[2022-09-13] MEDS: REMEDY ESSENTIAL ZINC PASTE 113 GM TOP PRN (20:51)
[2022-09-14 04:00] VITALS: BP 145/63
[2022-09-14 04:13] VITALS: BP 165/66
[2022-09-14 04:57] VITALS: BP 144/74
--- NOTE | 2022-09-14 05:23 | NUR ---
NSG: Remain uncooperative with adl's. compliant with medications.patient is resting in bed comfortably. no acute respiratory distress noted. skin warm and dry to touch. call light w/in reach.
[2022-09-14] MEDS: BLOOD SUGAR DIAGNOSTIC 1 EACH STRIP VI SCH ×4 (06:38→21:00)
[2022-09-14 07:33] VITALS: BP 131/58
[2022-09-14] MEDS: GLUCERNA SHAKE 237 ML CAN PO SCH ×2 (09:28→16:20)
[2022-09-14] MEDS: FLUTICASONE/VILANTEROL 1 EACH BLST.W.DEV INH SCH (09:29)
[2022-09-14] MEDS: PROTEIN SUPPLEMENT (PROSTAT) 30 ML LIQUID PO SCH (09:29)
[2022-09-14] MEDS: busPIRone 5 MG TABLET PO SCH ×3 (09:30→16:19)
[2022-09-14] MEDS: CHOLECALCIFEROL 1,000 UNIT TABLET PO SCH (09:30)
[2022-09-14] MEDS: LORAZEPAM 0.5 MG TABLET PO PRN ×2 (09:30→16:32)
[2022-09-14] MEDS: ALLOPURINOL 100 MG TABLET PO SCH (09:30)
[2022-09-14] MEDS: FERROUS SULFATE 325 MG TABEC PO SCH (09:30)
[2022-09-14] MEDS: MEGESTROL ACETATE 20 MG TABLET PO SCH ×2 (09:30→16:18)
[2022-09-14] MEDS: CARVEDILOL 12.5 MG TABLET PO SCH ×2 (09:30→21:58)
[2022-09-14] MEDS: CLOPIDOGREL 75 MG TABLET PO SCH (09:31)
[2022-09-14] MEDS: FINASTERIDE 5 MG TABLET PO SCH (09:31)
[2022-09-14] MEDS: FOLIC ACID 1 MG TABLET PO SCH (09:31)
[2022-09-14] MEDS: ASPIRIN EC 81 MG TABLET.DR PO SCH (09:31)
[2022-09-14] MEDS: HEPARIN SODIUM,PORCINE 5,000 UNITS/ML VIAL SQ SCH ×2 (09:35→22:05)
[2022-09-14] MEDS: INSULIN REGULAR, HUMAN 300 UNIT/3 ML VIAL SQ PRN ×3 (09:36→22:17)
[2022-09-14] MEDS: NUTRISOURCE FIBER 4 GM PACKET PO SCH ×2 (09:40→16:20)
[2022-09-14] MEDS: QUETIAPINE FUMARATE 25 MG TABLET PO PRN (13:51)
[2022-09-14 16:00] VITALS: BP 124/70
[2022-09-14 20:00] VITALS: BP 105/72
--- NOTE | 2022-09-14 20:00 | NUR ---
RECEIVED REPORT FROM AM NURSE LORIE PT IS ALERT AND ORIENTED X 2-3 PT HS BLOOD SUGAR IS 244 GAVE 4 UNITS REG AND 26 OF SCHEDULED [place] PT TOLERATING WELL NO SIGNS OF DIABETIC REACTION NOTED. PT IS SLEEPING WAS ABLE TO DO BLOOD SUGAR.WILL CONTINUE TO MONITOR FOR FALLS AND SAFETY
[2022-09-14] MEDS: TERAZOSIN 1 MG CAPSULE PO SCH (21:58)
[2022-09-14] MEDS: ATORVASTATIN 10 MG TABLET PO SCH (21:59)
[2022-09-14] MEDS: INSULIN GLARGINE,HUM 300 UNITS/3 ML CARTRIDGE SQ SCH (22:19)
[2022-09-15] VITALS: BP 110/74
[2022-09-15 04:00] VITALS: BP 104/64
--- NOTE | 2022-09-15 07:10 | NUR ---
Rec'd patient in bed, R/A, awake, alert to self. Patient denies any pain/discomfort. Patient incontinent of BM at this time. Care provided by mini shifter, repositioned for comfort and pressure relief. Safety measures in place and call light at reach.
[2022-09-15] MEDS: BLOOD SUGAR DIAGNOSTIC 1 EACH STRIP VI SCH ×4 (07:31→22:26)
[2022-09-15 08:10] VITALS: BP 159/71
[2022-09-15] MEDS: GLUCERNA SHAKE 237 ML CAN PO SCH ×2 (08:19→17:03)
[2022-09-15] MEDS: PROTEIN SUPPLEMENT (PROSTAT) 30 ML LIQUID PO SCH (08:20)
[2022-09-15] MEDS: CHOLECALCIFEROL 1,000 UNIT TABLET PO SCH (08:21)
[2022-09-15] MEDS: busPIRone 5 MG TABLET PO SCH ×3 (08:21→16:16)
[2022-09-15] MEDS: CLOPIDOGREL 75 MG TABLET PO SCH (08:21)
[2022-09-15] MEDS: CARVEDILOL 12.5 MG TABLET PO SCH ×2 (08:22→22:16)
[2022-09-15] MEDS: ALLOPURINOL 100 MG TABLET PO SCH (08:23)
[2022-09-15] MEDS: FINASTERIDE 5 MG TABLET PO SCH (08:23)
[2022-09-15] MEDS: FOLIC ACID 1 MG TABLET PO SCH (08:23)
[2022-09-15] MEDS: FERROUS SULFATE 325 MG TABEC PO SCH (08:23)
[2022-09-15] MEDS: HEPARIN SODIUM,PORCINE 5,000 UNITS/ML VIAL SQ SCH ×2 (08:25→22:25)
[2022-09-15] MEDS: INSULIN REGULAR, HUMAN 300 UNIT/3 ML VIAL SQ PRN ×4 (08:32→22:47)
[2022-09-15] MEDS: MEGESTROL ACETATE 20 MG TABLET PO SCH ×2 (09:12→16:16)
[2022-09-15] MEDS: FLUTICASONE/VILANTEROL 1 EACH BLST.W.DEV INH SCH (09:12)
[2022-09-15] MEDS: NUTRISOURCE FIBER 4 GM PACKET PO SCH ×2 (09:13→17:04)
[2022-09-15] MEDS: ASPIRIN EC 81 MG TABLET.DR PO SCH (09:13)
--- NOTE | 2022-09-15 09:14 | NUR ---
0900-Scheduled/due medication administered as ordered. No ASE noted, oral fluids taken well. Patient OOB W/ occupational therapy, no unusual observations at this time.
[2022-09-15 11:28] LABS: HEMATOCRIT 36.9 % (36.7-47.1); MEAN CORPUSCULAR HEMOGLOBIN 30.5 uug (23.8-33.4); MEAN CORPUSCULAR VOLUME 91.9 fL (73.0-96.2); PLATELET COUNT (AUTO) 214 K/uL (152-348)
[2022-09-15 11:48] LABS: ALANINE AMINOTRANSFERASE 33 U/L (16-63); ALKALINE PHOSPHATASE 90 U/L (50-136); ASPARTATE AMINOTRANSFERASE 22 U/L (15-37); BILIRUBIN,TOTAL 0.6 mg/dL (0.2-1.0); CARBON DIOXIDE 26 mmol/L (21-32); CHLORIDE 105 mmol/L (98-107); CREATININE 1.8 mg/dL (0.6-1.3); GLUCOSE 254 mg/dL (74-106); POTASSIUM 4.3 mmol/L (3.5-5.1); UREA NITROGEN, BLOOD 43 mg/dL (7-18)
[2022-09-15] MEDS: LORAZEPAM 0.5 MG TABLET PO PRN (14:44)
[2022-09-15] MEDS: QUETIAPINE FUMARATE 25 MG TABLET PO PRN (15:58)
[2022-09-15 16:27] VITALS: BP 126/55
[2022-09-15 20:44] VITALS: BP 131/71
[2022-09-15] MEDS: TERAZOSIN 1 MG CAPSULE PO SCH (22:15)
[2022-09-15] MEDS: ATORVASTATIN 10 MG TABLET PO SCH (22:20)
[2022-09-15] MEDS: INSULIN GLARGINE,HUM 300 UNITS/3 ML CARTRIDGE SQ SCH (22:26)
[2022-09-15] MEDS ORDERED: INSULIN GLARGINE,HUM 300 UNITS/3 ML CARTRIDGE SQ ONE (22:55)
[2022-09-16 04:35] VITALS: BP 163/67
[2022-09-16] MEDS: BLOOD SUGAR DIAGNOSTIC 1 EACH STRIP VI SCH ×4 (06:30→21:39)
--- NOTE | 2022-09-16 06:48 | NUR ---
Patient asleep but arousable, no sob no chest pain, BS stable, no s/s of pain at this time, Patient has episode of resistive with care, yells and screams when given adl's for no reason, explain procedure before care is done. cont to monitor.
[2022-09-16 07:32] VITALS: BP 129/57
[2022-09-16] MEDS: FOLIC ACID 1 MG TABLET PO SCH (09:21)
[2022-09-16] MEDS: MEGESTROL ACETATE 20 MG TABLET PO SCH ×2 (09:21→16:26)
[2022-09-16] MEDS: ASPIRIN EC 81 MG TABLET.DR PO SCH (09:22)
[2022-09-16] MEDS: CLOPIDOGREL 75 MG TABLET PO SCH (09:22)
[2022-09-16] MEDS: FERROUS SULFATE 325 MG TABEC PO SCH (09:22)
[2022-09-16] MEDS: CHOLECALCIFEROL 1,000 UNIT TABLET PO SCH (09:22)
[2022-09-16] MEDS: busPIRone 5 MG TABLET PO SCH ×3 (09:22→16:26)
[2022-09-16] MEDS: QUETIAPINE FUMARATE 25 MG TABLET PO PRN ×2 (09:22→16:26)
[2022-09-16] MEDS: ALLOPURINOL 100 MG TABLET PO SCH (09:22)
[2022-09-16] MEDS: FINASTERIDE 5 MG TABLET PO SCH (09:23)
[2022-09-16] MEDS: FLUTICASONE/VILANTEROL 1 EACH BLST.W.DEV INH SCH (09:23)
[2022-09-16] MEDS: CARVEDILOL 12.5 MG TABLET PO SCH ×2 (09:23→21:16)
[2022-09-16] MEDS: GLUCERNA SHAKE 237 ML CAN PO SCH ×2 (09:24→16:26)
[2022-09-16] MEDS: PROTEIN SUPPLEMENT (PROSTAT) 30 ML LIQUID PO SCH (09:24)
[2022-09-16] MEDS: NUTRISOURCE FIBER 4 GM PACKET PO SCH ×2 (09:24→16:26)
[2022-09-16] MEDS: HEPARIN SODIUM,PORCINE 5,000 UNITS/ML VIAL SQ SCH ×2 (09:28→21:40)
[2022-09-16] MEDS: INSULIN REGULAR, HUMAN 300 UNIT/3 ML VIAL SQ PRN ×3 (11:40→21:40)
--- NOTE | 2022-09-16 14:44 | NUR ---
Med. Surg: Nursing Notes: Patient is awake and responding to his name, compliant with his medications, cooperative with physical therapy, continue to monitor V/S, no s/s of infection noted, gets easily irritable at times, continue to monitor for safety, continue with treatment plan.
[2022-09-16 16:00] VITALS: BP 121/59
[2022-09-16 20:00] VITALS: BP 126/66
[2022-09-16] MEDS: ATORVASTATIN 10 MG TABLET PO SCH (21:16)
[2022-09-16] MEDS: TERAZOSIN 1 MG CAPSULE PO SCH (21:17)
[2022-09-16] MEDS: INSULIN GLARGINE,HUM 300 UNITS/3 ML CARTRIDGE SQ SCH (21:38)
[2022-09-17 04:00] VITALS: BP 126/65
--- NOTE | 2022-09-17 05:51 | NUR ---
Patient asleep but arousable, no sob no chest pain noted, no complains of pain at this time, patient request total assist with adl's, incontinent of bladder, patient calm and cooperative with care at this time, frequent visual check, with attempt to climb out of bed, bed alarm is on, cont to monitor.
[2022-09-17] MEDS: BLOOD SUGAR DIAGNOSTIC 1 EACH STRIP VI SCH ×3 (06:35→16:55)
--- NOTE | 2022-09-17 06:57 | NUR ---
Patient has no BM for three days, Dr Hicks notify with order.
[2022-09-17] MEDS ORDERED: MAGNESIUM HYDROXIDE 30 ML LIQUID UDC PO PRN (07:00)
[2022-09-17 07:54] VITALS: BP 130/72
[2022-09-17] MEDS: INSULIN REGULAR, HUMAN 300 UNIT/3 ML VIAL SQ PRN ×3 (08:14→17:03)
[2022-09-17] MEDS: HEPARIN SODIUM,PORCINE 5,000 UNITS/ML VIAL SQ SCH (08:15)
[2022-09-17] MEDS: FINASTERIDE 5 MG TABLET PO SCH (08:17)
[2022-09-17] MEDS: ALLOPURINOL 100 MG TABLET PO SCH (08:17)
[2022-09-17] MEDS: FOLIC ACID 1 MG TABLET PO SCH (08:17)
[2022-09-17] MEDS: busPIRone 5 MG TABLET PO SCH ×3 (08:17→16:42)
[2022-09-17] MEDS: MEGESTROL ACETATE 20 MG TABLET PO SCH ×2 (08:17→16:43)
[2022-09-17] MEDS: CLOPIDOGREL 75 MG TABLET PO SCH (08:17)
[2022-09-17] MEDS: CHOLECALCIFEROL 1,000 UNIT TABLET PO SCH (08:17)
[2022-09-17] MEDS: FERROUS SULFATE 325 MG TABEC PO SCH (08:17)
[2022-09-17] MEDS: ASPIRIN EC 81 MG TABLET.DR PO SCH (08:18)
[2022-09-17] MEDS: CARVEDILOL 12.5 MG TABLET PO SCH (08:18)
[2022-09-17] MEDS: PROTEIN SUPPLEMENT (PROSTAT) 30 ML LIQUID PO SCH (08:18)
[2022-09-17] MEDS: GLUCERNA SHAKE 237 ML CAN PO SCH ×2 (08:18→16:43)
[2022-09-17] MEDS: FLUTICASONE/VILANTEROL 1 EACH BLST.W.DEV INH SCH (08:19)
[2022-09-17] MEDS: NUTRISOURCE FIBER 4 GM PACKET PO SCH ×2 (08:19→16:43)
[2022-09-17 16:20] VITALS: BP 138/74
[2022-09-17] MEDS: QUETIAPINE FUMARATE 25 MG TABLET PO PRN (16:42)
--- NOTE | 2022-09-17 18:48 | NUR ---
patient had large BM today, discharged to snf, report given to Chi GUSMAN, no distress noted, patient picked up by pharmacy picking tech, belongings are accounted and sent with patient. ID removed, no IV access.
== END 2022-09-17 18:30 | DRG 871 ==
LOC: MERGE 16:32 → MEDSURG3 16:32
PROVIDERS: ADMIT Physical Medicine & Rehabilitation Pain Medicine; ATTEND Physical Medicine & Rehabilitation Pain Medicine
DX: A41.9 Sepsis, unspecified organism (principal); J18.9 Pneumonia, unspecified organism; N17.0 Acute kidney failure with tubular necrosis; R65.21 Severe sepsis with septic shock; I13.0 Hypertensive heart and chronic kidney disease with heart failure and stage 1 through stage 4 chronic kidney disease, or unspecified chronic kidney disease; D68.59 Other primary thrombophilia; J44.0 Chronic obstructive pulmonary disease with (acute) lower respiratory infection; E44.0 Moderate protein-calorie malnutrition; I31.39 Other pericardial effusion (noninflammatory); J98.11 Atelectasis; F03.918 Unspecified dementia, unspecified severity, with other behavioral disturbance; E87.20 Acidosis, unspecified; E11.22 Type 2 diabetes mellitus with diabetic chronic kidney disease; N18.9 Chronic kidney disease, unspecified; N40.0 Benign prostatic hyperplasia without lower urinary tract symptoms; M10.9 Gout, unspecified; D63.8 Anemia in other chronic diseases classified elsewhere; D50.9 Iron deficiency anemia, unspecified; E11.65 Type 2 diabetes mellitus with hyperglycemia; E78.5 Hyperlipidemia, unspecified; E88.09 Other disorders of plasma-protein metabolism, not elsewhere classified; F17.210 Nicotine dependence, cigarettes, uncomplicated; G89.29 Other chronic pain; I50.9 Heart failure, unspecified; R65.20 Severe sepsis without septic shock; Z68.28 Body mass index [BMI] 28.0-28.9, adult; E66.9 Obesity, unspecified; Z87.440 Personal history of urinary (tract) infections; F41.9 Anxiety disorder, unspecified; F29 Unspecified psychosis not due to a substance or known physiological condition
CPT/HCPCS: 36415; 83735; 84100; 85025; 97535-GO-CO; J1644; J1815; J2060; J8499; J8610

== ENCOUNTER 2023-12-11 15:25 | Emergency (ER) | payer MEDICARE, OTHER ==
[~2023-12-11] VITALS: Ht 167.6 cm; Wt 99.8 kg
[~2023-12-11 15:25] MED LIST changes: +ASPI-866 PO; +CHOL200059 PO; +FERR325T28 PO; +FINA5TAB11 PO; +FURO40TA5 PO; -HYDR-4077 PO; +INSU100V10 SQ; +NATE120T6 PO; +TERA2CAP4 PO
[2023-12-11] MEDS ORDERED: DEXTROSE 50% 50 ML DISP.SYRIN ONE (15:55)
[2023-12-11] MEDS ORDERED: DEXTROSE 50% 50 ML DISP.SYRIN IV ONE (16:00)
[2023-12-11] MEDS ORDERED: IV NORMAL SALINE 500 ML BAG IV ONE (16:00)
[2023-12-11] MEDS ORDERED: IV D5W-0.45% NS 1000 ML BAG IV ONE (16:00)
[2023-12-11 16:14] LABS: BASOPHILS # (AUTO) 0.2 K/UL (0.0-0.2); BASOPHILS % (AUTO) 2.2 % (0.0-2.0); EOSINOPHILS # (AUTO) 0.2 K/uL (0.0-0.7); EOSINOPHILS % (AUTO) 2.4 % (0.0-7.0); HEMATOCRIT 38.1 % (36.7-47.1); HEMOGLOBIN 12.5 g/dL (12.5-16.3); LYMPHOCYTES # (AUTO) 0.5 K/uL (0.8-4.8); MEAN CORPUSCULAR HEMOGLOBIN 29.3 uug (23.8-33.4); MEAN CORPUSCULAR HGB CONC 33 g/dL (32.5-36.3); MEAN CORPUSCULAR VOLUME 89.3 fL (73.0-96.2); MONOCYTES # (AUTO) 0.3 K/uL (0.1-1.30); MONOCYTES % (AUTO) 3.8 % (0.0-11.0); NEUTROPHILS # (AUTO) 7.9 K/uL (1.8-8.9); NEUTROPHILS % (AUTO) 86.6 % (38.5-71.5); PLATELET COUNT (AUTO) 172 K/uL (152-348); RED BLOOD CELL COUNT(AUTO) 4.27 MIL/uL (4.06-5.63); RED CELL DISTRIBUTION WIDTH 16.1 % (12.1-16.2); WHITE BLOOD COUNT (AUTO) 9.1 K/uL (3.6-10.2)
[2023-12-11 16:27] LABS: ALANINE AMINOTRANSFERASE 16 U/L (16-63); ALBUMIN 3.5 g/dL (3.4-5.0); ALKALINE PHOSPHATASE 78 U/L (50-136); ASPARTATE AMINOTRANSFERASE 13 U/L (15-37); BILIRUBIN,DIRECT 0.1 mg/dL (0.0-0.2); BILIRUBIN,TOTAL 0.3 mg/dL (0.2-1.0); CALCIUM 9.5 mg/dL (8.5-10.1); CARBON DIOXIDE 27 mmol/L (21-32); CHLORIDE 103 mmol/L (98-107); CREATININE 1.6 mg/dL (0.6-1.3); GLUCOSE 60 mg/dL (74-106); POTASSIUM 4.2 mmol/L (3.5-5.1); SODIUM SERUM 139 mmol/L (136-145); TOTAL PROTEIN, SERUM 7.6 g/dL (6.4-8.2); UREA NITROGEN, BLOOD 44 mg/dL (7-18)
[2023-12-11 16:39] LABS: DIFFERENTIAL COMMENT 1; ETHANOL < 3 MG/DL (0-10)
[2023-12-11 16:45] LABS: AMMONIA 13 umol/L (11-32)
[2023-12-11 16:56] LABS: THYROID STIMULATING HORMONE 1.389 mIU/mL (0.358-3.740)
[2023-12-11 18:35] VITALS: BP 159/71; O2SAT 95
== END 2023-12-11 18:30 | disposition home or self-care (01) ==
LOC: ER 15:25
DX: E11.649 Type 2 diabetes mellitus with hypoglycemia without coma (principal); R51.9 Headache, unspecified; R07.89 Other chest pain; J44.9 Chronic obstructive pulmonary disease, unspecified; Z79.899 Other long term (current) drug therapy; Z79.4 Long term (current) use of insulin; Z79.82 Long term (current) use of aspirin
CPT/HCPCS: 80076; 80048; 82140; 84443; 85025; 85730; 36415; 93005; 71045; 70450; 99285; 96361; 96374; 80320; J3490; J7040; A4606; A4663; G0480

== ENCOUNTER 2024-07-26 18:59 | Inpatient (IN) | payer MEDICARE, OTHER ==
[~2024-07-26] VITALS: Ht 160 cm; Wt 94.3 kg
[2024-07-26 20:27] LABS: BASOPHILS # (AUTO) 0.1 K/UL (0.0-0.2); BASOPHILS % (AUTO) 1.1 % (0.0-2.0); EOSINOPHILS # (AUTO) 0.4 K/uL (0.0-0.7); EOSINOPHILS % (AUTO) 5.6 % (0.0-7.0); HEMOGLOBIN 11.9 g/dL (12.5-16.3); LYMPHOCYTES # (AUTO) 0.7 K/uL (0.8-4.8); LYMPHOCYTES % (AUTO) 10.3 % (20.5-51.5); MEAN CORPUSCULAR HEMOGLOBIN 28.5 uug (23.8-33.4); MEAN CORPUSCULAR HGB CONC 33 g/dL (32.5-36.3); MEAN CORPUSCULAR VOLUME 85.8 fL (73.0-96.2); MONOCYTES % (AUTO) 15.2 % (0.0-11.0); NEUTROPHILS # (AUTO) 4.3 K/uL (1.8-8.9); NEUTROPHILS % (AUTO) 67.8 % (38.5-71.5); PLATELET COUNT (AUTO) 197 K/uL (152-348); RED BLOOD CELL COUNT(AUTO) 4.19 MIL/uL (4.06-5.63); WHITE BLOOD COUNT (AUTO) 6.4 K/uL (3.6-10.2)
[2024-07-26 20:35] LABS: BASOPHILS % (MANUAL) 0 % (0-2); EOSINOPHILS % (MANUAL) 3 % (0-8); LYMPHOCYTES % (MANUAL) 12 % (20-40); MONOCYTES % (MANUAL) 15 % (2-10); NEUTROPHILS % (MANUAL) 70 % (42-75)
[2024-07-26 20:38] LABS: CALCIUM 9.2 mg/dL (8.5-10.1); CARBON DIOXIDE 26 mmol/L (21-32); CHLORIDE 103 mmol/L (98-107); CREATININE 2.7 mg/dL (0.6-1.3); GLUCOSE 84 mg/dL (74-106); POTASSIUM 4.8 mmol/L (3.5-5.1); SODIUM SERUM 138 mmol/L (136-145); UREA NITROGEN, BLOOD 69 mg/dL (7-18)
[2024-07-26 20:53] LABS: ALANINE AMINOTRANSFERASE < 6 U/L (16-63); ALBUMIN 2.7 g/dL (3.4-5.0); ALKALINE PHOSPHATASE 60 U/L (50-136); ASPARTATE AMINOTRANSFERASE 21 U/L (15-37); BILIRUBIN,DIRECT 0.2 mg/dL (0.0-0.2); BILIRUBIN,TOTAL 0.3 mg/dL (0.2-1.0)
[2024-07-26 20:55] LABS: LACTIC ACID 2.2 mmol/L (0.4-2.0)
[2024-07-26] MEDS: IV NORMAL SALINE 1000 ML BAG IV ONE (21:00)
[2024-07-26] MEDS ORDERED: ALBUTEROL SULFATE 2.5 MG/ 0.5 ML NEBU NEB PRN (21:30)
[2024-07-26] MEDS ORDERED: ACETAMINOPHEN 325 MG TABLET-SA PATIENTS-PAIN ONLY PO PRN (21:30)
[2024-07-26] MEDS ORDERED: TEMAZEPAM 15 MG CAPSULE PO PRN (21:30)
[2024-07-26] MEDS ORDERED: ONDANSETRON 4 MG/2 ML VIAL IV PRN (21:30)
[2024-07-27] MEDS ORDERED: PIPERACILLIN/TAZO 2.25 G in IV DEXTROSE 5% 50 ML IV SCH
[2024-07-27 00:29] VITALS: BP 147/65; TEMP 97.7; O2SAT 93
[2024-07-27] MEDS ORDERED: VANCOMYCIN IV 200 ML ONE (00:39)
[2024-07-27] MEDS ORDERED: PIPERACILLIN/TAZOBACTAM/D5W 50 ML ONE (00:40)
[2024-07-27] MEDS: VANCOMYCIN IV 1,000 MG in IV DEXTROSE 5% 250 ML IV ONE (01:20)
[2024-07-27] MEDS: IV NS 1000 ML 1,000 ML IV PRN (01:20)
[2024-07-27] MEDS: PIPERACILLIN/TAZO 2.25 G in IV DEXTROSE 5% 50 ML IV ONE (01:20)
[2024-07-27 04:41] VITALS: BP 132/76; TEMP 98; O2SAT 93
[2024-07-27] MEDS: PANTOPRAZOLE SODIUM 40 MG TABLET.DR PO SCH (06:09)
[2024-07-27 07:57] LABS: BASOPHILS % (AUTO) 0.3 % (0.0-2.0); EOSINOPHILS # (AUTO) 0.1 K/uL (0.0-0.7); EOSINOPHILS % (AUTO) 2.6 % (0.0-7.0); HEMATOCRIT 34.6 % (36.7-47.1); HEMOGLOBIN 11.6 g/dL (12.5-16.3); LYMPHOCYTES # (AUTO) 0.7 K/uL (0.8-4.8); LYMPHOCYTES % (AUTO) 12.9 % (20.5-51.5); MEAN CORPUSCULAR HEMOGLOBIN 28.6 uug (23.8-33.4); MEAN CORPUSCULAR HGB CONC 34 g/dL (32.5-36.3); MEAN CORPUSCULAR VOLUME 85.4 fL (73.0-96.2); MONOCYTES # (AUTO) 0.9 K/uL (0.1-1.30); MONOCYTES % (AUTO) 16.6 % (0.0-11.0); NEUTROPHILS # (AUTO) 3.7 K/uL (1.8-8.9); NEUTROPHILS % (AUTO) 67.6 % (38.5-71.5); PLATELET COUNT (AUTO) 190 K/uL (152-348); RED BLOOD CELL COUNT(AUTO) 4.05 MIL/uL (4.06-5.63); RED CELL DISTRIBUTION WIDTH 14.9 % (12.1-16.2); WHITE BLOOD COUNT (AUTO) 5.5 K/uL (3.6-10.2)
[2024-07-27 08:00] VITALS: BP 127/60; TEMP 97.9; O2SAT 96
[2024-07-27 08:07] LABS: DIFFERENTIAL COMMENT 1
[2024-07-27 08:30] LABS: ALANINE AMINOTRANSFERASE < 6 U/L (16-63); ALBUMIN 2.3 g/dL (3.4-5.0); ALKALINE PHOSPHATASE 59 U/L (50-136); ASPARTATE AMINOTRANSFERASE 12 U/L (15-37); BILIRUBIN,TOTAL 0.4 mg/dL (0.2-1.0); CALCIUM 8.6 mg/dL (8.5-10.1); CARBON DIOXIDE 23 mmol/L (21-32); CHLORIDE 103 mmol/L (98-107); CHOLESTEROL 90 mg/dL (<200); CREATININE 2.4 mg/dL (0.6-1.3); GLUCOSE 182 mg/dL (74-106); HDL CHOLESTEROL 17 mg/dL (40-60); MAGNESIUM 1.9 mg/dL (1.8-2.4); NT-PRO BNP 662 pg/mL (0-125); PHOSPHOROUS 4.3 mg/dL (2.5-4.9); POTASSIUM 4.7 mmol/L (3.5-5.1); SODIUM SERUM 135 mmol/L (136-145); TOTAL PROTEIN, SERUM 6.3 g/dL (6.4-8.2); TRIGLYCERIDES 282 MG/DL (30-150); UREA NITROGEN, BLOOD 63 mg/dL (7-18)
[2024-07-27 08:35] LABS: IRON, SERUM 32 ug/dL (50-175)
[2024-07-27] MEDS: FOLIC ACID 1 MG TABLET PO SCH (08:36)
[2024-07-27] MEDS: FINASTERIDE 5 MG TABLET PO SCH (08:36)
[2024-07-27] MEDS: ALLOPURINOL 100 MG TABLET PO SCH (08:36)
[2024-07-27] MEDS: ASPIRIN 81 MG TAB.CHEW PO SCH (08:36)
[2024-07-27] MEDS: CARVEDILOL 12.5 MG TABLET PO SCH (08:38)
[2024-07-27] MEDS: LIPASE/PROTEASE/AMYLASE 4200 UNITS CAPSULE.DR PO SCH (09:00)
[2024-07-27] MEDS ORDERED: Medication Not On Formulary EA (Amylase/Lipase/Protease (Creon Dr 24,000 Units Capsule) PO SCH (09:00)
[2024-07-27 10:02] LABS: THYROID STIMULATING HORMONE 0.646 mIU/mL (0.358-3.740)
[2024-07-27 10:46] LABS: EOSINOPHILS % (MANUAL) 1 % (0-8); LYMPHOCYTES % (MANUAL) 15 % (20-40); MONOCYTES % (MANUAL) 15 % (2-10); NEUTROPHILS % (MANUAL) 69 % (42-75); PLATELET ESTIMATE ADEQUATE
[2024-07-27] MEDS: PIPERACILLIN/TAZO 2.25 G in IV DEXTROSE 5% 50 ML IV SCH (10:48)
[2024-07-27] MEDS ORDERED: LEVO5TAB13 PO (10:59)
[2024-07-27] MEDS ORDERED: PRED20TA PO (11:01)
[2024-07-27 12:00] VITALS: BP 109/50; TEMP 97.9; O2SAT 95
[2024-07-27] MEDS ORDERED: INSU100I19 SQ (12:09)
[2024-07-27] MEDS ORDERED: CARV25TA2 PO (12:15)
[2024-07-27] MEDS ORDERED: TEMAZEPAM 15 MG CAPSULE PO PRN (14:00)
[2024-07-27 16:42] VITALS: BP 149/68; TEMP 98.1; O2SAT 92
[2024-07-27 18:48] LABS: *BILIRUBIN,URIN NEGATIVE (NEGATIVE); *BLOOD, URINE NEGATIVE (NEGATIVE); *CLARITY,URINE CLEAR (CLEAR); *COLOR,URINE YELLOW (YELLOW); *KETONES,URINE NEGATIVE (NEGATIVE); *PROTEIN,URINE 1+ (NEGATIVE); *UROBILINOGEN,URINE 0.2 E.U./dl (NORMAL); LEUKOCYTE ESTERASE ,URINE NEGATIVE (NEGATIVE); NITRITE, URINE NEGATIVE (NEGATIVE); PH,URINE 5.5 (5.0-8.0); UGLUCOSE NEGATIVE (NEGATIVE)
[2024-07-27 19:25] LABS: BACTERIA,URINE NONE SEEN /HPF (NONE SEEN); RBC,URINE NONE SEEN /HPF (0-3); SQUAMOUS EPITHELIAL CELL,UR FEW /HPF (NONE SEEN); WBC,URINE 0-3 /HPF (0-3)
[2024-07-27 20:00] VITALS: BP 125/56; TEMP 98.6; O2SAT 93
[2024-07-27] MEDS ORDERED: DOCUSATE SODIUM 250 MG CAPSULE PO SCH (21:00)
[2024-07-27] MEDS: DOCUSATE SODIUM 100 MG CAPSULE PO SCH (21:38)
[2024-07-27] MEDS: TERAZOSIN 5 MG CAPSULE PO SCH (21:38)
[2024-07-27] MEDS ORDERED: DEXTROSE 50% 50 ML DISP.SYRIN IV PRN (23:15)
[2024-07-28] VITALS: BP_SYST 152; BP_SYST 79; BP_DIAS 76; TEMP 98.2; O2SAT 93
[2024-07-28 04:00] VITALS: BP 162/73; TEMP 98.4; O2SAT 95
[2024-07-28 04:35] LABS: *BILIRUBIN,URIN NEGATIVE (NEGATIVE); *CLARITY,URINE CLEAR (CLEAR); *COLOR,URINE YELLOW (YELLOW); *KETONES,URINE NEGATIVE (NEGATIVE); *PROTEIN,URINE TRACE (NEGATIVE); *UROBILINOGEN,URINE 0.2 E.U./dl (NORMAL); LEUKOCYTE ESTERASE ,URINE NEGATIVE (NEGATIVE); NITRITE, URINE NEGATIVE (NEGATIVE)
[2024-07-28 04:39] LABS: *BLOOD, URINE TRACE (NEGATIVE); UGLUCOSE 1+ (NEGATIVE)
[2024-07-28 04:41] LABS: BACTERIA,URINE NONE SEEN /HPF (NONE SEEN); RBC,URINE 0-3 /HPF (0-3); SQUAMOUS EPITHELIAL CELL,UR FEW /HPF (NONE SEEN); WBC,URINE NONE SEEN /HPF (0-3)
[2024-07-28 05:32] LABS: *CREATININE,URINE 37.9 mg/dL (30-125); *URINE TOTAL PROTEIN RANDOM 36.8 mg/dL (<150/24HR)
[2024-07-28] MEDS: BLOOD SUGAR DIAGNOSTIC 1 EACH STRIP VI SCH (06:32)
[2024-07-28] MEDS: INSULIN REGULAR, HUMAN 1000 UNIT/10 ML VIAL SQ PRN (06:34)
[2024-07-28 06:37] LABS: BASOPHILS % (AUTO) 0.3 % (0.0-2.0); EOSINOPHILS # (AUTO) 0.2 K/uL (0.0-0.7); EOSINOPHILS % (AUTO) 4.2 % (0.0-7.0); HEMATOCRIT 35.3 % (36.7-47.1); HEMOGLOBIN 11.8 g/dL (12.5-16.3); LYMPHOCYTES # (AUTO) 0.8 K/uL (0.8-4.8); LYMPHOCYTES % (AUTO) 14.8 % (20.5-51.5); MEAN CORPUSCULAR HEMOGLOBIN 28.7 uug (23.8-33.4); MEAN CORPUSCULAR HGB CONC 33 g/dL (32.5-36.3); MONOCYTES # (AUTO) 0.9 K/uL (0.1-1.30); MONOCYTES % (AUTO) 17.3 % (0.0-11.0); NEUTROPHILS # (AUTO) 3.3 K/uL (1.8-8.9); NEUTROPHILS % (AUTO) 63.4 % (38.5-71.5); PLATELET COUNT (AUTO) 184 K/uL (152-348); RED CELL DISTRIBUTION WIDTH 15.4 % (12.1-16.2); WHITE BLOOD COUNT (AUTO) 5.3 K/uL (3.6-10.2)
[2024-07-28 06:49] LABS: DIFFERENTIAL COMMENT 1
[2024-07-28 06:56] LABS: ALANINE AMINOTRANSFERASE 6 U/L (16-63); ALBUMIN 2.2 g/dL (3.4-5.0); ALKALINE PHOSPHATASE 59 U/L (50-136); ASPARTATE AMINOTRANSFERASE 9 U/L (15-37); BILIRUBIN,TOTAL 0.4 mg/dL (0.2-1.0); CALCIUM 8.8 mg/dL (8.5-10.1); CARBON DIOXIDE 23 mmol/L (21-32); CHLORIDE 106 mmol/L (98-107); CREATINE KINASE, TOTAL 16 U/L (39-308); CREATININE 2.1 mg/dL (0.6-1.3); GLUCOSE 310 mg/dL (74-106); MAGNESIUM 2.1 mg/dL (1.8-2.4); PHOSPHOROUS 3.8 mg/dL (2.5-4.9); POTASSIUM 4.6 mmol/L (3.5-5.1); SODIUM SERUM 137 mmol/L (136-145); TOTAL PROTEIN, SERUM 6.3 g/dL (6.4-8.2); UREA NITROGEN, BLOOD 50 mg/dL (7-18); VANCOMYCIN,RANDOM 6.1 ug/mL (20.0-30.0)
[2024-07-28 08:00] VITALS: BP 106/61; TEMP 97.8; O2SAT 95
[2024-07-28] MEDS ORDERED: VANCOMYCIN IV 1,000 MG in IV DEXTROSE 5% 250 ML IV ONE (08:00)
[2024-07-28] MEDS: VANCOMYCIN HCL 750 MG in IV DEXTROSE 5% 250 ML IV ONE (08:53)
[2024-07-28] MEDS ORDERED: ALBUTEROL SULFATE 2.5 MG/3 ML NEBU NEB PRN (10:00)
[2024-07-28 12:00] VITALS: BP 130/53; TEMP 97.7; O2SAT 96
[2024-07-28] MEDS: PIPERACILLIN/TAZO 2.25 G in IV DEXTROSE 5% 50 ML IV SCH (12:04)
[2024-07-28 16:33] VITALS: BP 144/62; TEMP 98.4; O2SAT 93
[2024-07-28 19:21] LABS: ANISOCYTOSIS 1+; BAND % (MANUAL) 3 % (0-10); EOSINOPHILS % (MANUAL) 2 % (0-8); LYMPHOCYTES % (MANUAL) 17 % (20-40); MONOCYTES % (MANUAL) 14 % (2-10); NEUTROPHILS % (MANUAL) 64 % (42-75); PLATELET ESTIMATE ADEQUATE
[2024-07-28 20:00] VITALS: BP 157/52; TEMP 97.5; O2SAT 94
[2024-07-28] MEDS ORDERED: diphenhydrAMINE 25 MG CAP PO PRN (21:15)
[2024-07-28] MEDS ORDERED: DEXTROSE 50% 50 ML DISP.SYRIN IV PRN (22:00)
[2024-07-28] MEDS: LORATADINE 10 MG TABLET PO SCH (22:23)
[2024-07-28] MEDS: levoFLOXacin 500 MG TABLET PO SCH (22:23)
[2024-07-29 04:00] VITALS: BP 156/62; TEMP 97.6; O2SAT 95
[2024-07-29] MEDS: BLOOD SUGAR DIAGNOSTIC 1 EACH STRIP VI SCH (06:31)
[2024-07-29] MEDS: INSULIN REGULAR, HUMAN 1000 UNIT/10 ML VIAL SQ PRN (06:33)
[2024-07-29 08:06] LABS: PTH, INTACT 11 pg/mL (15-65)
[2024-07-29 08:30] LABS: BASOPHILS % (AUTO) 0.3 % (0.0-2.0); EOSINOPHILS # (AUTO) 0.4 K/uL (0.0-0.7); EOSINOPHILS % (AUTO) 6.4 % (0.0-7.0); HEMATOCRIT 34.3 % (36.7-47.1); HEMOGLOBIN 11.5 g/dL (12.5-16.3); LYMPHOCYTES # (AUTO) 1.1 K/uL (0.8-4.8); LYMPHOCYTES % (AUTO) 17.4 % (20.5-51.5); MEAN CORPUSCULAR HEMOGLOBIN 28.6 uug (23.8-33.4); MEAN CORPUSCULAR HGB CONC 33 g/dL (32.5-36.3); MEAN CORPUSCULAR VOLUME 85.5 fL (73.0-96.2); MONOCYTES % (AUTO) 16.4 % (0.0-11.0); NEUTROPHILS # (AUTO) 3.6 K/uL (1.8-8.9); NEUTROPHILS % (AUTO) 59.5 % (38.5-71.5); PLATELET COUNT (AUTO) 186 K/uL (152-348); RED BLOOD CELL COUNT(AUTO) 4.01 MIL/uL (4.06-5.63); RED CELL DISTRIBUTION WIDTH 14.9 % (12.1-16.2)
[2024-07-29 08:33] LABS: DIFFERENTIAL COMMENT 1
[2024-07-29 08:52] LABS: CALCIUM 8.4 mg/dL (8.5-10.1); CARBON DIOXIDE 23 mmol/L (21-32); CHLORIDE 108 mmol/L (98-107); CREATININE 1.7 mg/dL (0.6-1.3); GLUCOSE 256 mg/dL (74-106); MAGNESIUM 1.8 mg/dL (1.8-2.4); PHOSPHOROUS 2.9 mg/dL (2.5-4.9); POTASSIUM 4.5 mmol/L (3.5-5.1); SODIUM SERUM 138 mmol/L (136-145); UREA NITROGEN, BLOOD 36 mg/dL (7-18); VANCOMYCIN,RANDOM 7.6 ug/mL (20.0-30.0)
[2024-07-29 10:07] LABS: A/G RATIO 0.7 (0.7-1.7); ALBUMIN 2.3 g/dL (2.9-4.4); ALPHA-1-GLOBULIN 0.3 g/dL (0.0-0.4); ALPHA-2-GLOBULIN 1.1 g/dL (0.4-1.0); BETA GLOBULIN 0.7 g/dL (0.7-1.3); GAMMA GLOBULIN 1.3 g/dL (0.4-1.8); GLOBULIN, TOTAL 3.4 g/dL (2.2-3.9); M-SPIKE Not Observed g/dL (Not Observed)
[2024-07-29] MEDS: VANCOMYCIN IV 1,250 MG in IV DEXTROSE 5% 250 ML IV ONE (10:45)
[2024-07-29 11:10] VITALS: BP 145/63; TEMP 97.6; O2SAT 94
[2024-07-29 14:35] LABS: EOSINOPHILS % (MANUAL) 6 % (0-8); LYMPHOCYTES % (MANUAL) 10 % (20-40); MONOCYTES % (MANUAL) 9 % (2-10); NEUTROPHILS % (MANUAL) 75 % (42-75); PLATELET ESTIMATE ADEQUATE
[2024-07-29 16:00] VITALS: BP 151/67; TEMP 97.6; O2SAT 96
[2024-07-29] MEDS: GLUCERNA SHAKE 237 ML CAN PO SCH (17:10)
[2024-07-29 20:00] VITALS: BP 143/68; TEMP 98; O2SAT 94
[2024-07-29] MEDS: INSULIN REGULAR, HUMAN 300 UNITS/3 ML VIAL SQ PRN (21:58)
[2024-07-30 06:00] VITALS: BP 134/62; TEMP 98; O2SAT 91
[2024-07-30 06:26] LABS: BASOPHILS % (AUTO) 0.3 % (0.0-2.0); EOSINOPHILS # (AUTO) 0.4 K/uL (0.0-0.7); EOSINOPHILS % (AUTO) 5.5 % (0.0-7.0); HEMATOCRIT 33.1 % (36.7-47.1); HEMOGLOBIN 10.9 g/dL (12.5-16.3); LYMPHOCYTES # (AUTO) 1.5 K/uL (0.8-4.8); LYMPHOCYTES % (AUTO) 20.3 % (20.5-51.5); MEAN CORPUSCULAR HEMOGLOBIN 28.6 uug (23.8-33.4); MEAN CORPUSCULAR HGB CONC 33 g/dL (32.5-36.3); MEAN CORPUSCULAR VOLUME 86.8 fL (73.0-96.2); MONOCYTES % (AUTO) 13.3 % (0.0-11.0); NEUTROPHILS # (AUTO) 4.4 K/uL (1.8-8.9); NEUTROPHILS % (AUTO) 60.6 % (38.5-71.5); PLATELET COUNT (AUTO) 186 K/uL (152-348); RED BLOOD CELL COUNT(AUTO) 3.82 MIL/uL (4.06-5.63); WHITE BLOOD COUNT (AUTO) 7.2 K/uL (3.6-10.2)
[2024-07-30 06:38] LABS: DIFFERENTIAL COMMENT 1
[2024-07-30 07:02] LABS: CALCIUM 8.4 mg/dL (8.5-10.1); CARBON DIOXIDE 21 mmol/L (21-32); CHLORIDE 107 mmol/L (98-107); CREATININE 1.7 mg/dL (0.6-1.3); GLUCOSE 246 mg/dL (74-106); MAGNESIUM 1.8 mg/dL (1.8-2.4); POTASSIUM 4.7 mmol/L (3.5-5.1); SODIUM SERUM 136 mmol/L (136-145); UREA NITROGEN, BLOOD 35 mg/dL (7-18)
[2024-07-30 07:21] LABS: BAND % (MANUAL) 4 % (0-10); EOSINOPHILS % (MANUAL) 6 % (0-8); LYMPHOCYTES % (MANUAL) 15 % (20-40); MONOCYTES % (MANUAL) 4 % (2-10); NEUTROPHILS % (MANUAL) 71 % (42-75); PLATELET ESTIMATE ADEQUATE
[2024-07-30] MEDS: ACETAMINOPHEN 325 MG TABLET PO PRN (11:55)
[2024-07-30 12:00] VITALS: BP 134/86; TEMP 98.2; O2SAT 97
[2024-07-30] MEDS ORDERED: LEVO500T90 PO ×2 (12:01→12:03)
[2024-07-30 20:00] VITALS: BP 159/64; TEMP 98.5; O2SAT 93; O2SAT 97
[2024-07-30 20:53] VITALS: BP 159/64
[2024-07-30] MEDS: levoFLOXacin 250 MG TABLET PO SCH (20:53)
[2024-07-31] MEDS ORDERED: HYDR-4077 PO (10:50)
[2024-07-31] MEDS ORDERED: LOSA50TA39 PO (10:52)
[2024-07-31] MEDS ORDERED: FINE10TA PO (10:59)
[2024-07-31] MEDS ORDERED: TADA5TAB2 PO (11:00)
== END 2024-07-30 21:05 | DRG 871 ==
LOC: ER 19:00 → TELE3 21:22 → MEDSURG3 07-28 10:14
PROVIDERS: ADMIT Internal Medicine; ATTEND Nurse Practitioner Acute Care
PROC: 05HB33Z Insertion of Infusion Device into Right Basilic Vein, Percutaneous Approach (ICD-10-PCS; principal; 2024-07-27)
DX: A41.9 Sepsis, unspecified organism (principal); N17.0 Acute kidney failure with tubular necrosis; I45.2 Bifascicular block; D68.59 Other primary thrombophilia; I13.0 Hypertensive heart and chronic kidney disease with heart failure and stage 1 through stage 4 chronic kidney disease, or unspecified chronic kidney disease; I50.32 Chronic diastolic (congestive) heart failure; E44.0 Moderate protein-calorie malnutrition; N45.2 Orchitis; N40.1 Benign prostatic hyperplasia with lower urinary tract symptoms; N39.498 Other specified urinary incontinence; E86.0 Dehydration; J44.9 Chronic obstructive pulmonary disease, unspecified; K58.9 Irritable bowel syndrome, unspecified; E66.01 Morbid (severe) obesity due to excess calories; E78.5 Hyperlipidemia, unspecified; R26.2 Difficulty in walking, not elsewhere classified; N32.81 Overactive bladder; D64.9 Anemia, unspecified; E11.22 Type 2 diabetes mellitus with diabetic chronic kidney disease; E88.09 Other disorders of plasma-protein metabolism, not elsewhere classified; N18.9 Chronic kidney disease, unspecified; N43.3 Hydrocele, unspecified; Z79.899 Other long term (current) drug therapy; Z79.4 Long term (current) use of insulin; L27.0 Generalized skin eruption due to drugs and medicaments taken internally; T36.0X5A Adverse effect of penicillins, initial encounter; Y92.238 Other place in hospital as the place of occurrence of the external cause; Z68.36 Body mass index [BMI] 36.0-36.9, adult; Z85.828 Personal history of other malignant neoplasm of skin; Z88.1 Allergy status to other antibiotic agents; Z79.84 Long term (current) use of oral hypoglycemic drugs; Z79.82 Long term (current) use of aspirin
CPT/HCPCS: 36415; 70030-TC; 71045; 76770; 76870; 83550; 83605; 83735; 83970; 84100; 84155; 84165; 84300; 84443; 84484; 85025; 87040; 93005; C1758; G0378; J1815; J2543; J3370; J7040; J7050; J8499

== ENCOUNTER 2024-07-30 21:19 | Inpatient (IN) | payer MEDICARE, OTHER ==
[~2024-07-30] VITALS: Ht 160 cm; Wt 88.1 kg
[~2024-07-30 21:19] MED LIST changes: -ASPI-866 PO; -CARV12.52 PO; +CARV25TA2 PO; -FERR325T30 PO; -FINA5TAB3 PO; -FURO-151 PO; -INSU100V10 SQ; +LEVO500T90 PO; -LINA145C PO; -METH2.5T PO; -MIRA25TA PO; -MV-M1TAB18 PO; -NATE120T6 PO; -TERA2CAP4 PO; -TROS20TA3 PO
[2024-07-30 21:34] VITALS: BP 144/60; TEMP 98.5; O2SAT 93
[2024-07-31] MEDS ORDERED: DEXTROSE 50% 50 ML DISP.SYRIN IV PRN (03:45)
[2024-07-31 06:00] VITALS: BP 141/76; TEMP 97.6; O2SAT 93
[2024-07-31] MEDS: BLOOD SUGAR DIAGNOSTIC 1 EACH STRIP VI SCH ×2 (08:00→11:41)
[2024-07-31] MEDS: INSULIN REGULAR, HUMAN 1000 UNIT/10 ML VIAL SQ PRN ×2 (08:06→12:11)
[2024-07-31] MEDS ORDERED: INSULIN DETEMIR 300 UNIT/3 ML CARTRIDGE SQ SCH ×2 (10:15→21:00)
[2024-07-31 10:38] LABS: BASOPHILS % (AUTO) 0.3 % (0.0-2.0); DIFFERENTIAL COMMENT 0; EOSINOPHILS # (AUTO) 0.5 K/uL (0.0-0.7); EOSINOPHILS % (AUTO) 6.1 % (0.0-7.0); HEMATOCRIT 33.4 % (36.7-47.1); LYMPHOCYTES # (AUTO) 1.5 K/uL (0.8-4.8); LYMPHOCYTES % (AUTO) 20.4 % (20.5-51.5); MEAN CORPUSCULAR HEMOGLOBIN 28.5 uug (23.8-33.4); MEAN CORPUSCULAR HGB CONC 33 g/dL (32.5-36.3); MEAN CORPUSCULAR VOLUME 86.3 fL (73.0-96.2); MONOCYTES # (AUTO) 0.8 K/uL (0.1-1.30); MONOCYTES % (AUTO) 10.3 % (0.0-11.0); NEUTROPHILS # (AUTO) 4.7 K/uL (1.8-8.9); NEUTROPHILS % (AUTO) 62.9 % (38.5-71.5); PLATELET COUNT (AUTO) 187 K/uL (152-348); RED BLOOD CELL COUNT(AUTO) 3.87 MIL/uL (4.06-5.63); WHITE BLOOD COUNT (AUTO) 7.5 K/uL (3.6-10.2)
[2024-07-31 10:50] LABS: CALCIUM 8.5 mg/dL (8.5-10.1); CARBON DIOXIDE 24 mmol/L (21-32); CHLORIDE 106 mmol/L (98-107); CREATININE 1.8 mg/dL (0.6-1.3); GLUCOSE 379 mg/dL (74-106); POTASSIUM 4.6 mmol/L (3.5-5.1); SODIUM SERUM 136 mmol/L (136-145); UREA NITROGEN, BLOOD 36 mg/dL (7-18)
[2024-07-31] MEDS ORDERED: HYDR-4077 PO (10:50)
[2024-07-31] MEDS ORDERED: LOSA50TA39 PO (10:52)
[2024-07-31] MEDS: levoFLOXacin 500 MG TABLET PO SCH (10:58)
[2024-07-31] MEDS ORDERED: FINE10TA PO (10:59)
[2024-07-31] MEDS: FERROUS SULFATE 325 MG TABEC PO SCH (10:59)
[2024-07-31] MEDS: CARVEDILOL 25 MG TABLET PO SCH (10:59)
[2024-07-31] MEDS: DOCUSATE SODIUM 100 MG CAPSULE PO SCH (10:59)
[2024-07-31] MEDS: ASPIRIN 81 MG TAB.CHEW PO SCH (10:59)
[2024-07-31] MEDS: SORBITOL 70% SOLUTION 30 ML UDC PO ONE (10:59)
[2024-07-31] MEDS: FINASTERIDE 5 MG TABLET PO SCH (10:59)
[2024-07-31] MEDS: LACTULOSE 20 G/30 ML LIQUID UDC PO ONE (10:59)
[2024-07-31] MEDS: ALLOPURINOL 100 MG TABLET PO SCH (10:59)
[2024-07-31] MEDS ORDERED: TADA5TAB2 PO (11:00)
[2024-07-31] MEDS: FUROSEMIDE 40 MG TABLET PO SCH (11:04)
[2024-07-31] MEDS: FOLIC ACID 1 MG TABLET PO SCH (11:04)
[2024-07-31] MEDS: CHOLECALCIFEROL 400 UNITS TABLET PO SCH (11:06)
[2024-07-31] MEDS: INSULIN GLARGINE,HUM 300 UNITS/3 ML CARTRIDGE SQ SCH ×2 (11:40→21:45)
[2024-07-31] MEDS ORDERED: Medication Not On Formulary EA (Amylase/Lipase/Protease (Creon Dr 24,000 Units Capsule) PO SCH (13:00)
[2024-07-31] MEDS: LIPASE/PROTEASE/AMYLASE 4200 UNITS CAPSULE.DR PO SCH (13:48)
[2024-07-31 16:44] VITALS: BP 122/47; TEMP 98; O2SAT 95
[2024-07-31] MEDS ORDERED: OMEGA ACID ETHYL ESTERS PO SCH (17:00)
[2024-07-31 20:19] VITALS: BP 139/59; TEMP 98.5; O2SAT 94
[2024-07-31] MEDS: TERAZOSIN 5 MG CAPSULE PO SCH (21:40)
[2024-07-31] MEDS: ATORVASTATIN 10 MG TABLET PO SCH (21:41)
[2024-08-01 04:00] VITALS: BP 152/52; TEMP 97.9; O2SAT 91
[2024-08-01] MEDS: levoFLOXacin 250 MG TABLET PO SCH (06:08)
[2024-08-01] MEDS: PANTOPRAZOLE SODIUM 40 MG TABLET.DR PO SCH (06:08)
[2024-08-01 07:00] LABS: CALCIUM 8.6 mg/dL (8.5-10.1); CARBON DIOXIDE 26 mmol/L (21-32); CHLORIDE 106 mmol/L (98-107); CREATININE 1.6 mg/dL (0.6-1.3); GLUCOSE 212 mg/dL (74-106); MAGNESIUM 1.9 mg/dL (1.8-2.4); PHOSPHOROUS 3.3 mg/dL (2.5-4.9); POTASSIUM 4.1 mmol/L (3.5-5.1); SODIUM SERUM 139 mmol/L (136-145); UREA NITROGEN, BLOOD 30 mg/dL (7-18)
[2024-08-01 07:07] LABS: BASOPHILS % (AUTO) 0.4 % (0.0-2.0); EOSINOPHILS # (AUTO) 0.6 K/uL (0.0-0.7); EOSINOPHILS % (AUTO) 7.2 % (0.0-7.0); HEMATOCRIT 33.7 % (36.7-47.1); HEMOGLOBIN 11.3 g/dL (12.5-16.3); LYMPHOCYTES # (AUTO) 1.7 K/uL (0.8-4.8); LYMPHOCYTES % (AUTO) 21.8 % (20.5-51.5); MEAN CORPUSCULAR HEMOGLOBIN 28.4 uug (23.8-33.4); MEAN CORPUSCULAR HGB CONC 33 g/dL (32.5-36.3); MEAN CORPUSCULAR VOLUME 84.9 fL (73.0-96.2); MONOCYTES % (AUTO) 12.8 % (0.0-11.0); NEUTROPHILS # (AUTO) 4.5 K/uL (1.8-8.9); NEUTROPHILS % (AUTO) 57.8 % (38.5-71.5); PLATELET COUNT (AUTO) 198 K/uL (152-348); RED BLOOD CELL COUNT(AUTO) 3.97 MIL/uL (4.06-5.63); RED CELL DISTRIBUTION WIDTH 14.7 % (12.1-16.2); WHITE BLOOD COUNT (AUTO) 7.8 K/uL (3.6-10.2)
[2024-08-01 07:11] LABS: DIFFERENTIAL COMMENT 1
[2024-08-01 09:00] VITALS: BP 144/53; TEMP 98.1; O2SAT 98
[2024-08-01 11:40] VITALS: BP 131/59; TEMP 97.6; O2SAT 94
[2024-08-01 16:17] VITALS: BP 150/64; TEMP 97.6; O2SAT 96
[2024-08-01] MEDS: hydrALAZINE HCL 50 MG TABLET PO SCH (17:08)
[2024-08-01 20:06] VITALS: BP 141/58; TEMP 97.7; O2SAT 95
[2024-08-02] MEDS: [UNRECOGNIZED DRUG - OTHER] PO SCH (10:34)
[2024-08-02] MEDS: TADALAFIL 5 MG PO SCH (10:34)
[2024-08-02] MEDS: [UNRECOGNIZED DRUG - OTHER] PO SCH (10:34)
[2024-08-02] MEDS: LOSARTAN POTASSIUM 50 MG TABLET PO SCH (10:38)
[2024-08-02 15:48] VITALS: BP 145/70; TEMP 97.8; O2SAT 95
[2024-08-02] MEDS: ICOSAPENT ETHYL 1 GM PO SCH (16:57)
[2024-08-02] MEDS: [UNRECOGNIZED DRUG - OTHER] PO SCH (16:57)
[2024-08-02 19:54] VITALS: TEMP 98
[2024-08-03 05:53] VITALS: TEMP 98.5
[2024-08-03 15:50] VITALS: BP 102/53; TEMP 97.6; O2SAT 95
[2024-08-03 19:00] VITALS: BP 153/63; TEMP 97.9; O2SAT 96
[2024-08-04 06:00] VITALS: BP 168/70; TEMP 98.1; O2SAT 95
[2024-08-04 15:40] VITALS: BP 136/79; TEMP 97.1; O2SAT 98
[2024-08-04 21:03] VITALS: BP 114/75; TEMP 98.1; O2SAT 94
[2024-08-05 04:18] VITALS: BP 117/53; TEMP 98.9; O2SAT 95
[2024-08-05 16:31] VITALS: BP 102/57; TEMP 97.8; O2SAT 98
[2024-08-05 20:21] VITALS: BP 131/58; TEMP 98.3; O2SAT 95
[2024-08-05] MEDS: REMEDY ESSENTIAL ZINC PASTE 113 GM TOP PRN (20:25)
[2024-08-05] MEDS: REMEDY ESSENTIAL ZINC PASTE 113 GM TOP SCH (20:45)
[2024-08-06 06:04] VITALS: BP 144/60; TEMP 97.8; O2SAT 98
[2024-08-06 16:00] VITALS: BP 109/51; TEMP 97.1; O2SAT 98
[2024-08-06 20:00] VITALS: BP 154/67; TEMP 97.3; O2SAT 95
[2024-08-06] MEDS: levoFLOXacin 250 MG TABLET PO SCH (20:32)
[2024-08-07 06:43] VITALS: BP 144/55; TEMP 98.3; O2SAT 94
[2024-08-07 12:00] VITALS: BP 84/37; O2SAT 95
[2024-08-07] MEDS: ACETAMINOPHEN 325 MG TABLET PO PRN (14:38)
[2024-08-07 15:04] VITALS: BP 110/46; TEMP 97.4; O2SAT 95
[2024-08-07 19:00] VITALS: BP 122/55; TEMP 98.2; O2SAT 94
[2024-08-08 07:23] LABS: BASOPHILS # (AUTO) 0.1 K/UL (0.0-0.2); EOSINOPHILS # (AUTO) 0.6 K/uL (0.0-0.7); EOSINOPHILS % (AUTO) 7.6 % (0.0-7.0); HEMATOCRIT 32.9 % (36.7-47.1); HEMOGLOBIN 11.1 g/dL (12.5-16.3); LYMPHOCYTES # (AUTO) 2.4 K/uL (0.8-4.8); LYMPHOCYTES % (AUTO) 30.6 % (20.5-51.5); MEAN CORPUSCULAR HGB CONC 34 g/dL (32.5-36.3); MEAN CORPUSCULAR VOLUME 86.1 fL (73.0-96.2); MONOCYTES # (AUTO) 0.6 K/uL (0.1-1.30); MONOCYTES % (AUTO) 8.1 % (0.0-11.0); NEUTROPHILS # (AUTO) 4.2 K/uL (1.8-8.9); NEUTROPHILS % (AUTO) 52.7 % (38.5-71.5); PLATELET COUNT (AUTO) 209 K/uL (152-348); RED BLOOD CELL COUNT(AUTO) 3.82 MIL/uL (4.06-5.63); RED CELL DISTRIBUTION WIDTH 15.6 % (12.1-16.2); WHITE BLOOD COUNT (AUTO) 7.9 K/uL (3.6-10.2)
[2024-08-08 07:35] LABS: DIFFERENTIAL COMMENT 1
[2024-08-08 08:20] LABS: ALANINE AMINOTRANSFERASE 23 U/L (16-63); ALBUMIN 2.5 g/dL (3.4-5.0); ALKALINE PHOSPHATASE 70 U/L (50-136); ASPARTATE AMINOTRANSFERASE 18 U/L (15-37); BILIRUBIN,TOTAL 0.4 mg/dL (0.2-1.0); CALCIUM 9.2 mg/dL (8.5-10.1); CARBON DIOXIDE 28 mmol/L (21-32); CHLORIDE 105 mmol/L (98-107); CREATININE 1.7 mg/dL (0.6-1.3); GLUCOSE 63 mg/dL (74-106); MAGNESIUM 2.2 mg/dL (1.8-2.4); PHOSPHOROUS 4.4 mg/dL (2.5-4.9); POTASSIUM 4.2 mmol/L (3.5-5.1); SODIUM SERUM 142 mmol/L (136-145); TOTAL PROTEIN, SERUM 6.5 g/dL (6.4-8.2); UREA NITROGEN, BLOOD 44 mg/dL (7-18)
[2024-08-08 15:08] VITALS: BP 115/52; TEMP 98.3; O2SAT 92
[2024-08-08 20:15] VITALS: BP 108/57; TEMP 98; O2SAT 92
[2024-08-09 12:00] VITALS: BP 113/71; TEMP 98.5; O2SAT 92
[2024-08-09 16:50] VITALS: BP 113/52; TEMP 98.1; O2SAT 91
[2024-08-09 20:00] VITALS: BP 131/57; TEMP 97.6; O2SAT 92
[2024-08-10 04:00] VITALS: BP 99/53; TEMP 97.6; O2SAT 94
[2024-08-10 07:37] LABS: BASOPHILS # (AUTO) 0.1 K/UL (0.0-0.2); EOSINOPHILS # (AUTO) 0.6 K/uL (0.0-0.7); HEMATOCRIT 31.5 % (36.7-47.1); HEMOGLOBIN 10.4 g/dL (12.5-16.3); LYMPHOCYTES # (AUTO) 2.3 K/uL (0.8-4.8); LYMPHOCYTES % (AUTO) 33.9 % (20.5-51.5); MEAN CORPUSCULAR HGB CONC 33 g/dL (32.5-36.3); MEAN CORPUSCULAR VOLUME 87.3 fL (73.0-96.2); MONOCYTES # (AUTO) 0.6 K/uL (0.1-1.30); MONOCYTES % (AUTO) 8.8 % (0.0-11.0); NEUTROPHILS # (AUTO) 3.3 K/uL (1.8-8.9); NEUTROPHILS % (AUTO) 47.3 % (38.5-71.5); PLATELET COUNT (AUTO) 188 K/uL (152-348); RED CELL DISTRIBUTION WIDTH 16.2 % (12.1-16.2); WHITE BLOOD COUNT (AUTO) 6.9 K/uL (3.6-10.2)
[2024-08-10 07:54] LABS: DIFFERENTIAL COMMENT 1
[2024-08-10 07:57] LABS: ALANINE AMINOTRANSFERASE 25 U/L (16-63); ALBUMIN 2.6 g/dL (3.4-5.0); ALKALINE PHOSPHATASE 88 U/L (50-136); ASPARTATE AMINOTRANSFERASE 20 U/L (15-37); BILIRUBIN,TOTAL 0.3 mg/dL (0.2-1.0); CALCIUM 8.6 mg/dL (8.5-10.1); CARBON DIOXIDE 32 mmol/L (21-32); CHLORIDE 105 mmol/L (98-107); CREATININE 1.8 mg/dL (0.6-1.3); GLUCOSE 126 mg/dL (74-106); MAGNESIUM 2.3 mg/dL (1.8-2.4); PHOSPHOROUS 3.7 mg/dL (2.5-4.9); POTASSIUM 4.1 mmol/L (3.5-5.1); SODIUM SERUM 140 mmol/L (136-145); TOTAL PROTEIN, SERUM 6.4 g/dL (6.4-8.2); UREA NITROGEN, BLOOD 43 mg/dL (7-18)
[2024-08-10 08:32] VITALS: BP 139/60; TEMP 97.6; O2SAT 94
[2024-08-10 15:51] VITALS: BP 126/52; TEMP 97.5; O2SAT 94
[2024-08-11 06:00] VITALS: BP 150/79; O2SAT 95
[2024-08-11] MEDS: DEXTROSE 50% 50 ML DISP.SYRIN IV PRN (06:22)
[2024-08-11 08:48] VITALS: BP 142/95; TEMP 97.8; O2SAT 97
[2024-08-11 15:12] VITALS: BP 100/40; TEMP 98.7; O2SAT 97
[2024-08-11 19:00] VITALS: BP 132/60; TEMP 98.1; O2SAT 97
[2024-08-11] MEDS: INSULIN GLARGINE,HUM 300 UNITS/3 ML CARTRIDGE SQ SCH (22:52)
[2024-08-12 06:00] VITALS: BP 129/82; TEMP 98.2; O2SAT 98
[2024-08-12 06:05] LABS: BASOPHILS # (AUTO) 0.1 K/UL (0.0-0.2); EOSINOPHILS # (AUTO) 0.5 K/uL (0.0-0.7); EOSINOPHILS % (AUTO) 6.8 % (0.0-7.0); HEMATOCRIT 35.7 % (36.7-47.1); HEMOGLOBIN 11.6 g/dL (12.5-16.3); LYMPHOCYTES # (AUTO) 2.5 K/uL (0.8-4.8); LYMPHOCYTES % (AUTO) 35.7 % (20.5-51.5); MEAN CORPUSCULAR HEMOGLOBIN 28.4 uug (23.8-33.4); MEAN CORPUSCULAR HGB CONC 33 g/dL (32.5-36.3); MEAN CORPUSCULAR VOLUME 87.4 fL (73.0-96.2); MONOCYTES # (AUTO) 0.4 K/uL (0.1-1.30); MONOCYTES % (AUTO) 6.3 % (0.0-11.0); NEUTROPHILS # (AUTO) 3.5 K/uL (1.8-8.9); NEUTROPHILS % (AUTO) 50.2 % (38.5-71.5); PLATELET COUNT (AUTO) 173 K/uL (152-348); RED BLOOD CELL COUNT(AUTO) 4.08 MIL/uL (4.06-5.63); RED CELL DISTRIBUTION WIDTH 16.1 % (12.1-16.2); WHITE BLOOD COUNT (AUTO) 6.9 K/uL (3.6-10.2)
[2024-08-12 06:29] LABS: IRON, SERUM 59 ug/dL (50-175)
[2024-08-12 06:51] LABS: ALANINE AMINOTRANSFERASE 23 U/L (16-63); ALBUMIN 2.8 g/dL (3.4-5.0); ALKALINE PHOSPHATASE 86 U/L (50-136); ASPARTATE AMINOTRANSFERASE 19 U/L (15-37); BILIRUBIN,TOTAL 0.4 mg/dL (0.2-1.0); CALCIUM 8.9 mg/dL (8.5-10.1); CARBON DIOXIDE 29 mmol/L (21-32); CHLORIDE 104 mmol/L (98-107); CREATININE 2.1 mg/dL (0.6-1.3); GLUCOSE 199 mg/dL (74-106); MAGNESIUM 2.2 mg/dL (1.8-2.4); PHOSPHOROUS 4.1 mg/dL (2.5-4.9); POTASSIUM 4.4 mmol/L (3.5-5.1); SODIUM SERUM 138 mmol/L (136-145); TOTAL PROTEIN, SERUM 6.5 g/dL (6.4-8.2); UREA NITROGEN, BLOOD 52 mg/dL (7-18)
[2024-08-12 11:40] VITALS: BP 133/66; TEMP 97.6; O2SAT 96
== END 2024-08-12 11:55 | disposition home or self-care (01) | DRG 871 ==
PROVIDERS: ADMIT Physical Medicine & Rehabilitation Pain Medicine; ATTEND Physical Medicine & Rehabilitation Pain Medicine
DX: A41.9 Sepsis, unspecified organism (principal); N17.0 Acute kidney failure with tubular necrosis; E44.0 Moderate protein-calorie malnutrition; I13.0 Hypertensive heart and chronic kidney disease with heart failure and stage 1 through stage 4 chronic kidney disease, or unspecified chronic kidney disease; I50.32 Chronic diastolic (congestive) heart failure; R53.1 Weakness; D64.9 Anemia, unspecified; E11.22 Type 2 diabetes mellitus with diabetic chronic kidney disease; N18.9 Chronic kidney disease, unspecified; E78.5 Hyperlipidemia, unspecified; E88.09 Other disorders of plasma-protein metabolism, not elsewhere classified; J44.9 Chronic obstructive pulmonary disease, unspecified; N45.2 Orchitis; N43.3 Hydrocele, unspecified; E66.01 Morbid (severe) obesity due to excess calories; K58.9 Irritable bowel syndrome, unspecified; R32 Unspecified urinary incontinence; N40.1 Benign prostatic hyperplasia with lower urinary tract symptoms; N39.498 Other specified urinary incontinence; Z85.828 Personal history of other malignant neoplasm of skin; Z88.1 Allergy status to other antibiotic agents; Q78.9 Osteochondrodysplasia, unspecified; E66.9 Obesity, unspecified; R21 Rash and other nonspecific skin eruption
CPT/HCPCS: 36415; 82378; 83550; 83735; 84100; 85025; A4663; J1815; J3490; J7040; J8499

== ENCOUNTER 2025-03-11 13:52 | Inpatient (IN) | payer MEDICARE, OTHER ==
[~2025-03-11] VITALS: Ht 165.1 cm; Wt 95.3 kg
[~2025-03-11 13:52] MED LIST changes: -FERR325T28 PO; +FINE10TA PO; +HYDR-4077 PO; +LOSA50TA39 PO; +TADA5TAB2 PO
[2025-03-11 14:30] LABS: BASOPHILS % (AUTO) 0.5 % (0.0-2.0); EOSINOPHILS # (AUTO) 0.2 K/uL (0.0-0.7); EOSINOPHILS % (AUTO) 3.8 % (0.0-7.0); HEMOGLOBIN 12.9 g/dL (12.5-16.3); LYMPHOCYTES # (AUTO) 0.8 K/uL (0.8-4.8); LYMPHOCYTES % (AUTO) 13.2 % (20.5-51.5); MEAN CORPUSCULAR HEMOGLOBIN 28.2 uug (23.8-33.4); MEAN CORPUSCULAR HGB CONC 33 g/dL (32.5-36.3); MEAN CORPUSCULAR VOLUME 84.9 fL (73.0-96.2); MONOCYTES # (AUTO) 0.9 K/uL (0.1-1.30); MONOCYTES % (AUTO) 16.5 % (0.0-11.0); NEUTROPHILS # (AUTO) 3.8 K/uL (1.8-8.9); PLATELET COUNT (AUTO) 198 K/uL (152-348); RED BLOOD CELL COUNT(AUTO) 4.59 MIL/uL (4.06-5.63); RED CELL DISTRIBUTION WIDTH 15.7 % (12.1-16.2); WHITE BLOOD COUNT (AUTO) 5.7 K/uL (3.6-10.2)
[2025-03-11 14:34] LABS: DIFFERENTIAL COMMENT 1
[2025-03-11 14:38] LABS: CALCIUM 8.6 mg/dL (8.5-10.1); CARBON DIOXIDE 25 mmol/L (21-32); CHLORIDE 103 mmol/L (98-107); CREATININE 2.9 mg/dL (0.6-1.3); GLUCOSE 157 mg/dL (74-106); POTASSIUM 4.4 mmol/L (3.5-5.1); SODIUM SERUM 139 mmol/L (136-145)
[2025-03-11 14:50] LABS: UREA NITROGEN, BLOOD 82 mg/dL (7-18)
[2025-03-11 14:58] LABS: ALANINE AMINOTRANSFERASE 10 U/L (16-63); ALBUMIN 2.5 g/dL (3.4-5.0); ALKALINE PHOSPHATASE 75 U/L (50-136); ASPARTATE AMINOTRANSFERASE 17 U/L (15-37); BILIRUBIN,DIRECT 0.2 mg/dL (0.0-0.2); BILIRUBIN,TOTAL 0.4 mg/dL (0.2-1.0); NT-PRO BNP 429 pg/mL (0-125); TOTAL PROTEIN, SERUM 6.7 g/dL (6.4-8.2)
[2025-03-11] MEDS ORDERED: LORAZEPAM 2 MG/1 ML VIAL ONE (15:26)
[2025-03-11] MEDS: LORAZEPAM 2 MG/1 ML VIAL IV ONE (15:35)
[2025-03-11 15:36] LABS: BAND % (MANUAL) 1 % (0-10); EOSINOPHILS % (MANUAL) 5 % (0-8); LYMPHOCYTES % (MANUAL) 13 % (20-40); MONOCYTES % (MANUAL) 13 % (2-10); NEUTROPHILS % (MANUAL) 68 % (42-75)
[2025-03-11 15:37] LABS: ANISOCYTOSIS 1+; PLATELET ESTIMATE ADEQUATE
[2025-03-11 16:06] LABS: *BILIRUBIN,URIN NEGATIVE (NEGATIVE); *CLARITY,URINE CLEAR (CLEAR); *COLOR,URINE YELLOW (YELLOW); *KETONES,URINE NEGATIVE (NEGATIVE); *PROTEIN,URINE 2+ (NEGATIVE); LEUKOCYTE ESTERASE ,URINE NEGATIVE (NEGATIVE); NITRITE, URINE NEGATIVE (NEGATIVE); PH,URINE 5.5 (5.0-8.0); UGLUCOSE 1+ (NEGATIVE)
[2025-03-11 16:12] LABS: *BLOOD, URINE TRACE (NEGATIVE)
[2025-03-11 16:14] LABS: RBC,URINE 0-3 /HPF (0-3)
[2025-03-11 16:15] LABS: BACTERIA,URINE NONE SEEN /HPF (NONE SEEN); WBC,URINE 0-3 /HPF (0-3)
[2025-03-11 16:16] LABS: SQUAMOUS EPITHELIAL CELL,UR FEW /HPF (NONE SEEN)
[2025-03-11] MEDS: IV NS 1000 ML 1,000 ML IV ONE (17:03)
[2025-03-11] MEDS ORDERED: MORPHINE SULFATE 2 MG/1 ML DISP.SYRIN IV PRN (20:00)
[2025-03-11] MEDS ORDERED: ONDANSETRON 4 MG/2 ML VIAL IV PRN (20:00)
[2025-03-11] MEDS ORDERED: DEXTROSE 50% 50 ML DISP.SYRIN IV PRN (20:00)
[2025-03-11] MEDS ORDERED: ACETAMINOPHEN 325 MG TABLET-SA PATIENTS-PAIN ONLY PO PRN (20:00)
[2025-03-11 21:09] LABS: ABG BASE EXCESS -6.2 mmol/L (-2.0-3.0); ABG HCO3 16.8 mmol/L (21.0-28.0); ABG PCO2 23.4 mmHg (35.0-48.0); ABG PH 7.473 (7.350-7.450); ABG SITE RIGHT BRACHIAL; ABG TOTAL HEMOGLOBIN 6.3 G/dL (13.5-17.5); COHb 0.2 % (0.5-1.5); MetHb 0.8 % (0.0-1.5); O2Hb 97.7 % (94.0-98.0)
[2025-03-11 23:10] VITALS: BP 143/60; TEMP 97.7; O2SAT 98
[2025-03-12] MEDS: TERAZOSIN 5 MG CAPSULE PO SCH (00:37)
[2025-03-12] MEDS: DOCUSATE SODIUM 100 MG CAPSULE PO SCH (00:37)
[2025-03-12] MEDS: CARVEDILOL 12.5 MG TABLET PO SCH (00:37)
[2025-03-12] MEDS: BLOOD SUGAR DIAGNOSTIC 1 EACH STRIP VI SCH (00:38)
[2025-03-12] MEDS: INSULIN GLARGINE,HUM 300 UNITS/3 ML CARTRIDGE SQ SCH (00:41)
[2025-03-12] MEDS: PANTOPRAZOLE SODIUM 40 MG TABLET.DR PO SCH (06:13)
[2025-03-12 06:25] VITALS: BP 127/66; TEMP 97.8; O2SAT 95
[2025-03-12 07:45] VITALS: BP 135/50; TEMP 98.6; O2SAT 94
[2025-03-12 08:03] LABS: BASOPHILS % (AUTO) 0.5 % (0.0-2.0); DIFFERENTIAL COMMENT 0; EOSINOPHILS # (AUTO) 0.2 K/uL (0.0-0.7); EOSINOPHILS % (AUTO) 2.9 % (0.0-7.0); HEMATOCRIT 40.2 % (36.7-47.1); HEMOGLOBIN 13.6 g/dL (12.5-16.3); LYMPHOCYTES # (AUTO) 0.7 K/uL (0.8-4.8); LYMPHOCYTES % (AUTO) 11.9 % (20.5-51.5); MEAN CORPUSCULAR HEMOGLOBIN 28.8 uug (23.8-33.4); MEAN CORPUSCULAR HGB CONC 34 g/dL (32.5-36.3); MONOCYTES # (AUTO) 1.1 K/uL (0.1-1.30); MONOCYTES % (AUTO) 18.1 % (0.0-11.0); NEUTROPHILS % (AUTO) 66.6 % (38.5-71.5); PLATELET COUNT (AUTO) 190 K/uL (152-348); RED BLOOD CELL COUNT(AUTO) 4.73 MIL/uL (4.06-5.63); RED CELL DISTRIBUTION WIDTH 15.3 % (12.1-16.2); WHITE BLOOD COUNT (AUTO) 5.9 K/uL (3.6-10.2)
[2025-03-12 08:11] LABS: ALANINE AMINOTRANSFERASE 10 U/L (16-63); ALBUMIN 2.2 g/dL (3.4-5.0); ALKALINE PHOSPHATASE 73 U/L (50-136); ASPARTATE AMINOTRANSFERASE 19 U/L (15-37); BILIRUBIN,TOTAL 0.3 mg/dL (0.2-1.0); CALCIUM 8.6 mg/dL (8.5-10.1); CARBON DIOXIDE 22 mmol/L (21-32); CHLORIDE 105 mmol/L (98-107); CHOLESTEROL 100 mg/dL (<200); CREATININE 2.5 mg/dL (0.6-1.3); GLUCOSE 135 mg/dL (74-106); HDL CHOLESTEROL 18 mg/dL (40-60); MAGNESIUM 2.6 mg/dL (1.8-2.4); PHOSPHOROUS 4.2 mg/dL (2.5-4.9); POTASSIUM 4.6 mmol/L (3.5-5.1); SODIUM SERUM 138 mmol/L (136-145); TOTAL PROTEIN, SERUM 6.6 g/dL (6.4-8.2); TRIGLYCERIDES 227 MG/DL (30-150); UREA NITROGEN, BLOOD 75 mg/dL (7-18)
[2025-03-12 08:26] LABS: IRON, SERUM 27 ug/dL (50-175)
[2025-03-12 08:41] LABS: THYROID STIMULATING HORMONE 0.948 mIU/mL (0.358-3.740)
[2025-03-12] MEDS: INSULIN REGULAR, HUMAN 1000 UNIT/10 ML VIAL SQ PRN (08:51)
[2025-03-12] MEDS: ALLOPURINOL 100 MG TABLET PO SCH (08:53)
[2025-03-12] MEDS: FOLIC ACID 1 MG TABLET PO SCH (08:53)
[2025-03-12] MEDS: ASPIRIN 81 MG TAB.CHEW PO SCH (08:53)
[2025-03-12] MEDS: FINASTERIDE 5 MG TABLET PO SCH (08:53)
[2025-03-12] MEDS ORDERED: INSULIN DETEMIR 300 UNIT/3 ML CARTRIDGE SQ SCH (09:00)
[2025-03-12] MEDS ORDERED: Medication Not On Formulary EA (Amylase/Lipase/Protease (Creon Dr 24,000 Units Capsule) PO SCH (09:00)
[2025-03-12 09:18] LABS: EOSINOPHILS % (MANUAL) 3 % (0-8); LYMPHOCYTES % (MANUAL) 12 % (20-40); MONOCYTES % (MANUAL) 18 % (2-10); NEUTROPHILS % (MANUAL) 67 % (42-75); PLATELET ESTIMATE ADEQUATE
[2025-03-12 11:13] VITALS: BP 131/62; TEMP 98.2; O2SAT 97
[2025-03-12] MEDS: LIPASE/PROTEASE/AMYLASE 4200 UNITS CAPSULE.DR PO SCH (12:22)
[2025-03-12 13:01] LABS: PROSTATE SPECIFIC ANTIGEN 7.71 ng/mL (0.00-4.00)
[2025-03-12] MEDS ORDERED: FERR325T28 PO (14:22)
[2025-03-12 16:41] LABS: THYROID STIMULATING HORMONE 0.893 mIU/mL (0.358-3.740)
[2025-03-13 06:51] VITALS: BP 131/55; TEMP 98.4; O2SAT 94
[2025-03-13 07:06] LABS: BASOPHILS % (AUTO) 0.6 % (0.0-2.0); EOSINOPHILS # (AUTO) 0.2 K/uL (0.0-0.7); EOSINOPHILS % (AUTO) 3.8 % (0.0-7.0); HEMATOCRIT 39.3 % (36.7-47.1); LYMPHOCYTES # (AUTO) 0.8 K/uL (0.8-4.8); LYMPHOCYTES % (AUTO) 14.8 % (20.5-51.5); MEAN CORPUSCULAR HEMOGLOBIN 28.1 uug (23.8-33.4); MEAN CORPUSCULAR HGB CONC 33 g/dL (32.5-36.3); MONOCYTES # (AUTO) 1.1 K/uL (0.1-1.30); MONOCYTES % (AUTO) 19.3 % (0.0-11.0); NEUTROPHILS # (AUTO) 3.4 K/uL (1.8-8.9); NEUTROPHILS % (AUTO) 61.5 % (38.5-71.5); PLATELET COUNT (AUTO) 197 K/uL (152-348); RED BLOOD CELL COUNT(AUTO) 4.62 MIL/uL (4.06-5.63); RED CELL DISTRIBUTION WIDTH 15.4 % (12.1-16.2); WHITE BLOOD COUNT (AUTO) 5.5 K/uL (3.6-10.2)
[2025-03-13 07:31] LABS: ALANINE AMINOTRANSFERASE 9 U/L (16-63); ALBUMIN 2.1 g/dL (3.4-5.0); ALKALINE PHOSPHATASE 73 U/L (50-136); ASPARTATE AMINOTRANSFERASE 18 U/L (15-37); BILIRUBIN,TOTAL 0.4 mg/dL (0.2-1.0); CALCIUM 8.6 mg/dL (8.5-10.1); CARBON DIOXIDE 21 mmol/L (21-32); CHLORIDE 107 mmol/L (98-107); CREATINE KINASE, TOTAL 16 U/L (39-308); CREATININE 2.7 mg/dL (0.6-1.3); GLUCOSE 224 mg/dL (74-106); MAGNESIUM 2.5 mg/dL (1.8-2.4); PHOSPHOROUS 3.3 mg/dL (2.5-4.9); POTASSIUM 4.5 mmol/L (3.5-5.1); SODIUM SERUM 137 mmol/L (136-145); TOTAL PROTEIN, SERUM 6.3 g/dL (6.4-8.2); UREA NITROGEN, BLOOD 72 mg/dL (7-18)
[2025-03-13 07:40] LABS: DIFFERENTIAL COMMENT 1
[2025-03-13 07:50] VITALS: BP 107/61; TEMP 98; O2SAT 96
[2025-03-13 10:47] LABS: BAND % (MANUAL) 3 % (0-10); LYMPHOCYTES % (MANUAL) 20 % (20-40); MONOCYTES % (MANUAL) 14 % (2-10); NEUTROPHILS % (MANUAL) 59 % (42-75)
[2025-03-13 10:48] LABS: ANISOCYTOSIS 1+; EOSINOPHILS % (MANUAL) 3 % (0-8); MYELOCYTES % 1 % (0-0); PLATELET ESTIMATE ADEQUATE
[2025-03-13 11:48] VITALS: BP 124/61; TEMP 97.8; O2SAT 95
[2025-03-13] MEDS: FINERENONE 10 MG PO SCH (13:50)
[2025-03-13] MEDS: TADALAFIL 5 MG PO SCH (13:50)
[2025-03-13 15:44] VITALS: BP 137/62; TEMP 98.1; O2SAT 95
[2025-03-13 19:55] VITALS: BP 141/56; TEMP 98.1; O2SAT 94
[2025-03-13] MEDS ORDERED: ALBUTEROL SULFATE 2.5 MG/3 ML NEBU NEB PRN (23:30)
[2025-03-14] VITALS (7 sets, daily range): BP systolic 108–154; BP diastolic 54–74; TEMP 98–98.6; O2SAT 93–95
[2025-03-14] MEDS: INSULIN GLARGINE,HUM 300 UNITS/3 ML CARTRIDGE SQ SCH (08:49)
[2025-03-14 09:07] LABS: PTH, INTACT 25 pg/mL (15-65)
[2025-03-14] MEDS: ACETAMINOPHEN 325 MG TABLET PO PRN (11:37)
[2025-03-15 06:18] VITALS: BP 143/65; O2SAT 94
[2025-03-15 07:49] VITALS: BP 140/57; TEMP 98.6; O2SAT 97
[2025-03-15 10:59] VITALS: BP 143/66; TEMP 98.4; O2SAT 96
[2025-03-15 13:16] LABS: BASOPHILS % (AUTO) 0.4 % (0.0-2.0); EOSINOPHILS # (AUTO) 0.3 K/uL (0.0-0.7); EOSINOPHILS % (AUTO) 4.5 % (0.0-7.0); HEMATOCRIT 38.9 % (36.7-47.1); HEMOGLOBIN 12.8 g/dL (12.5-16.3); LYMPHOCYTES # (AUTO) 0.9 K/uL (0.8-4.8); LYMPHOCYTES % (AUTO) 14.6 % (20.5-51.5); MEAN CORPUSCULAR HEMOGLOBIN 27.9 uug (23.8-33.4); MEAN CORPUSCULAR HGB CONC 33 g/dL (32.5-36.3); MEAN CORPUSCULAR VOLUME 84.5 fL (73.0-96.2); MONOCYTES # (AUTO) 1.1 K/uL (0.1-1.30); MONOCYTES % (AUTO) 16.7 % (0.0-11.0); NEUTROPHILS # (AUTO) 4.2 K/uL (1.8-8.9); NEUTROPHILS % (AUTO) 63.8 % (38.5-71.5); PLATELET COUNT (AUTO) 210 K/uL (152-348); RED BLOOD CELL COUNT(AUTO) 4.61 MIL/uL (4.06-5.63); RED CELL DISTRIBUTION WIDTH 15.3 % (12.1-16.2); WHITE BLOOD COUNT (AUTO) 6.5 K/uL (3.6-10.2)
[2025-03-15] MEDS ORDERED: CARV12.52 PO (13:16)
[2025-03-15 13:20] LABS: DIFFERENTIAL COMMENT 1
[2025-03-15 13:44] LABS: CALCIUM 8.4 mg/dL (8.5-10.1); CARBON DIOXIDE 22 mmol/L (21-32); CHLORIDE 107 mmol/L (98-107); GLUCOSE 209 mg/dL (74-106); MAGNESIUM 2.4 mg/dL (1.8-2.4); PHOSPHOROUS 3.6 mg/dL (2.5-4.9); POTASSIUM 4.7 mmol/L (3.5-5.1); SODIUM SERUM 138 mmol/L (136-145); UREA NITROGEN, BLOOD 69 mg/dL (7-18)
[2025-03-15 14:55] LABS: BAND % (MANUAL) 2 % (0-10); EOSINOPHILS % (MANUAL) 4 % (0-8); LYMPHOCYTES % (MANUAL) 17 % (20-40); MONOCYTES % (MANUAL) 13 % (2-10); NEUTROPHILS % (MANUAL) 64 % (42-75)
[2025-03-15 14:56] LABS: ANISOCYTOSIS 1+; PLATELET ESTIMATE ADEQUATE; TEAR DROP CELLS 1+
[2025-03-15 19:50] VITALS: BP 122/60; TEMP 98; O2SAT 93
[2025-03-16 05:28] VITALS: BP 118/58; TEMP 98.5; O2SAT 100
[2025-03-16 06:52] LABS: BASOPHILS % (AUTO) 0.6 % (0.0-2.0); EOSINOPHILS # (AUTO) 0.2 K/uL (0.0-0.7); EOSINOPHILS % (AUTO) 4.5 % (0.0-7.0); HEMATOCRIT 33.9 % (36.7-47.1); HEMOGLOBIN 11.6 g/dL (12.5-16.3); LYMPHOCYTES # (AUTO) 0.8 K/uL (0.8-4.8); LYMPHOCYTES % (AUTO) 15.1 % (20.5-51.5); MEAN CORPUSCULAR HEMOGLOBIN 28.9 uug (23.8-33.4); MEAN CORPUSCULAR HGB CONC 34 g/dL (32.5-36.3); MEAN CORPUSCULAR VOLUME 84.4 fL (73.0-96.2); MONOCYTES # (AUTO) 0.9 K/uL (0.1-1.30); MONOCYTES % (AUTO) 16.2 % (0.0-11.0); NEUTROPHILS # (AUTO) 3.5 K/uL (1.8-8.9); NEUTROPHILS % (AUTO) 63.6 % (38.5-71.5); PLATELET COUNT (AUTO) 200 K/uL (152-348); RED BLOOD CELL COUNT(AUTO) 4.02 MIL/uL (4.06-5.63); RED CELL DISTRIBUTION WIDTH 15.3 % (12.1-16.2); WHITE BLOOD COUNT (AUTO) 5.6 K/uL (3.6-10.2)
[2025-03-16 06:59] LABS: DIFFERENTIAL COMMENT 1
[2025-03-16 07:04] LABS: CALCIUM 8.4 mg/dL (8.5-10.1); CARBON DIOXIDE 22 mmol/L (21-32); CHLORIDE 108 mmol/L (98-107); CREATININE 2.2 mg/dL (0.6-1.3); GLUCOSE 167 mg/dL (74-106); MAGNESIUM 2.5 mg/dL (1.8-2.4); PHOSPHOROUS 3.9 mg/dL (2.5-4.9); POTASSIUM 4.8 mmol/L (3.5-5.1); SODIUM SERUM 138 mmol/L (136-145); UREA NITROGEN, BLOOD 70 mg/dL (7-18)
[2025-03-16 07:07] LABS: LYMPHOCYTES % (MANUAL) 0 % (20-40); NEUTROPHILS % (MANUAL) 0 % (42-75)
[2025-03-16 07:57] VITALS: BP 108/54; TEMP 97.8; O2SAT 95
[2025-03-16 11:55] VITALS: BP 124/80; TEMP 97.9; O2SAT 95
[2025-03-18 11:08] LABS: A/G RATIO 0.8 (0.7-1.7); ALBUMIN 2.4 g/dL (2.9-4.4); ALPHA-1-GLOBULIN 0.3 g/dL (0.0-0.4); BETA GLOBULIN 0.7 g/dL (0.7-1.3); GAMMA GLOBULIN 1.3 g/dL (0.4-1.8); GLOBULIN, TOTAL 3.2 g/dL (2.2-3.9); M-SPIKE Not Observed g/dL (Not Observed); PROTEIN, TOTAL 5.6 g/dL (6.0-8.5)
== END 2025-03-16 15:55 | disposition home health service (06) | DRG 682 ==
LOC: ER 13:55 → MEDSURG3 20:09 → TELE3 20:45
PROVIDERS: ADMIT Internal Medicine; ATTEND Internal Medicine
DX: N17.0 Acute kidney failure with tubular necrosis (principal); G92.8 Other toxic encephalopathy; J96.01 Acute respiratory failure with hypoxia; G91.2 (Idiopathic) normal pressure hydrocephalus; D68.59 Other primary thrombophilia; Z91.199 Patient's noncompliance with other medical treatment and regimen due to unspecified reason; E44.0 Moderate protein-calorie malnutrition; J44.1 Chronic obstructive pulmonary disease with (acute) exacerbation; E11.22 Type 2 diabetes mellitus with diabetic chronic kidney disease; F03.90 Unspecified dementia, unspecified severity, without behavioral disturbance, psychotic disturbance, mood disturbance, and anxiety; E78.5 Hyperlipidemia, unspecified; N40.0 Benign prostatic hyperplasia without lower urinary tract symptoms; Z79.4 Long term (current) use of insulin; N50.89 Other specified disorders of the male genital organs; K86.89 Other specified diseases of pancreas; E88.09 Other disorders of plasma-protein metabolism, not elsewhere classified; E86.0 Dehydration; N18.9 Chronic kidney disease, unspecified; I35.8 Other nonrheumatic aortic valve disorders; G25.2 Other specified forms of tremor; I12.9 Hypertensive chronic kidney disease with stage 1 through stage 4 chronic kidney disease, or unspecified chronic kidney disease; E66.9 Obesity, unspecified; Z68.34 Body mass index [BMI] 34.0-34.9, adult; R79.1 Abnormal coagulation profile; I44.7 Left bundle-branch block, unspecified; Z74.09 Other reduced mobility; Z87.440 Personal history of urinary (tract) infections; Z79.899 Other long term (current) drug therapy; Z85.828 Personal history of other malignant neoplasm of skin; Z88.0 Allergy status to penicillin; Z87.891 Personal history of nicotine dependence
CPT/HCPCS: 36415; 36600; 70450; 71045; 78580; 82803; 83550; 83605; 83735; 83921; 83970; 84100; 84153; 84155; 84165; 84443; 84484; 85025; 85730; 93307; A4663; A9540; G0378; J1815; J2060; J7040; J8499

== ENCOUNTER 2025-09-11 14:10 | Inpatient (IN) | payer MEDICARE, OTHER ==
[~2025-09-11] VITALS: Ht 165.1 cm; Wt 101.7 kg
[~2025-09-11 14:10] MED LIST changes: +CARV12.52 PO; -CARV25TA2 PO; +FERR325T28 PO; -LEVO500T90 PO; -OMEG1CAP55 PO; -TADA5TAB2 PO
[2025-09-11] MEDS: IV NORMAL SALINE 1000 ML BAG IV ONE (14:59)
[2025-09-11] MEDS ORDERED: LIDOCAINE 2% (GLYDO= UROJET) 10 ML JELLY MM ONE (15:04)
[2025-09-11] MEDS: LIDOCAINE 2% (GLYDO= UROJET) 10 ML JELLY MM ONE (15:14)
[2025-09-11 15:19] LABS: PLATELET COUNT (AUTO) 198 K/uL (152-348); RED BLOOD CELL COUNT(AUTO) 4.30 MIL/uL (4.06-5.63); RED CELL DISTRIBUTION WIDTH 15.5 % (12.1-16.2); WHITE BLOOD COUNT (AUTO) 5.1 K/uL (3.6-10.2)
[2025-09-11 15:42] LABS: CREATININE 2.9 mg/dL (0.6-1.3); SODIUM SERUM 138 mmol/L (136-145); UREA NITROGEN, BLOOD 69 mg/dL (7-18)
[2025-09-11 15:48] LABS: ASPARTATE AMINOTRANSFERASE 15 U/L (15-37); TOTAL PROTEIN, SERUM 6.6 g/dL (6.4-8.2)
[2025-09-11 16:41] LABS: *BILIRUBIN,URIN NEGATIVE (NEGATIVE); *CLARITY,URINE CLEAR (CLEAR); *COLOR,URINE YELLOW (YELLOW); *KETONES,URINE NEGATIVE (NEGATIVE); *PROTEIN,URINE 1+ (NEGATIVE); *UROBILINOGEN,URINE 0.2 E.U./dl (NORMAL); LEUKOCYTE ESTERASE ,URINE NEGATIVE (NEGATIVE); NITRITE, URINE NEGATIVE (NEGATIVE)
[2025-09-11 16:45] LABS: *BLOOD, URINE TRACE (NEGATIVE); UGLUCOSE 2+ (NEGATIVE)
[2025-09-11 16:55] LABS: SQUAMOUS EPITHELIAL CELL,UR FEW /HPF (NONE SEEN)
[2025-09-11] MEDS ORDERED: MAGNESIUM HYDROXIDE 30 ML LIQUID UDC PO PRN (18:45)
[2025-09-11] MEDS ORDERED: ONDANSETRON 4 MG/2 ML VIAL IV PRN (18:45)
[2025-09-11] MEDS ORDERED: REMEDY ESSENTIAL ZINC PASTE 113 GM TP PRN (18:45)
[2025-09-11] MEDS ORDERED: CEFTRIAXONE /D5W 50ML IVPB **ER PYXIS IV ONE (18:47)
[2025-09-11] MEDS ORDERED: AZITHROMYCIN 500MG/ D5W 250ML IVPB **ER PYXIS ONLY IV ONE (19:12)
[2025-09-11] MEDS: AZITHROMYCIN IV 500 MG in IV DEXTROSE 5% 250 ML IV SCH (19:19)
[2025-09-11 20:12] VITALS: BP 143/130
[2025-09-11 21:05] VITALS: BP 130/56; TEMP 98.5; O2SAT 92
[2025-09-11] MEDS: CARVEDILOL 12.5 MG TABLET PO SCH (21:33)
[2025-09-11] MEDS: INSULIN GLARGINE,HUM 300 UNITS/3 ML CARTRIDGE SQ SCH (21:38)
[2025-09-11 21:47] LABS: BAND % (MANUAL) 5 % (0-10); EOSINOPHILS % (MANUAL) 2 % (0-8); LYMPHOCYTES % (MANUAL) 10 % (20-40); MONOCYTES % (MANUAL) 18 % (2-10); NEUTROPHILS % (MANUAL) 65 % (42-75)
[2025-09-11 21:48] LABS: PLATELET ESTIMATE ADEQUATE
[2025-09-11] MEDS: IV NS 1000 ML 1,000 ML IV PRN (22:08)
[2025-09-11 23:30] VITALS: BP 123/51; TEMP 97.9; O2SAT 93
[2025-09-12] VITALS (8 sets, daily range): BP systolic 102–133; BP diastolic 45–57; TEMP 97.4–98.4; O2SAT 95–99
[2025-09-12] MEDS: PANTOPRAZOLE SODIUM 40 MG TABLET.DR PO SCH (06:09)
[2025-09-12 07:32] LABS: PLATELET COUNT (AUTO) 204 K/uL (152-348); RED BLOOD CELL COUNT(AUTO) 4.11 MIL/uL (4.06-5.63); RED CELL DISTRIBUTION WIDTH 15.2 % (12.1-16.2); WHITE BLOOD COUNT (AUTO) 5.4 K/uL (3.6-10.2)
[2025-09-12 07:45] LABS: NEUTROPHILS % (MANUAL) 0 % (42-75)
[2025-09-12 07:50] LABS: CREATININE 2.4 mg/dL (0.6-1.3); SODIUM SERUM 144 mmol/L (136-145); UREA NITROGEN, BLOOD 63 mg/dL (7-18)
[2025-09-12] MEDS: FOLIC ACID 1 MG TABLET PO SCH (08:33)
[2025-09-12] MEDS: CHOLECALCIFEROL 1,000 UNIT TABLET PO SCH (08:33)
[2025-09-12] MEDS: FINASTERIDE 5 MG TABLET PO SCH (08:33)
[2025-09-12] MEDS: ASPIRIN 81 MG TAB.CHEW PO SCH (08:33)
[2025-09-12] MEDS: LIPASE/PROTEASE/AMYLASE 4200 UNITS CAPSULE.DR PO SCH (08:36)
[2025-09-12] MEDS: INSULIN GLARGINE,HUM 300 UNITS/3 ML CARTRIDGE SQ SCH (09:00)
[2025-09-12] MEDS ORDERED: CARVEDILOL 12.5 MG TABLET PO SCH (09:00)
[2025-09-12] MEDS ORDERED: FINERENONE 10 MG PO SCH (09:00)
[2025-09-12] MEDS ORDERED: ALLOPURINOL 100 MG TABLET PO SCH ×2 (09:00)
[2025-09-12] MEDS ORDERED: Medication Not On Formulary EA (Amylase/Lipase/Protease (Creon Dr 24,000 Units Capsule) PO SCH (09:00)
[2025-09-12] MEDS ORDERED: DEXTROSE 50% 50 ML DISP.SYRIN IV PRN (14:30)
[2025-09-12] MEDS: BLOOD SUGAR DIAGNOSTIC 1 EACH STRIP VI SCH (17:06)
[2025-09-12] MEDS: INSULIN REGULAR, HUMAN 1000 UNIT/10 ML VIAL SQ PRN (17:07)
[2025-09-12] MEDS ORDERED: CARV25TA2 PO (18:49)
[2025-09-12] MEDS: ATORVASTATIN 10 MG TABLET PO SCH (20:25)
[2025-09-12] MEDS: TERAZOSIN 5 MG CAPSULE PO SCH (20:25)
[2025-09-13] VITALS (8 sets, daily range): BP systolic 106–124; BP diastolic 44–57; TEMP 97.8–99.6; O2SAT 93–98
[2025-09-13] MEDS: CARVEDILOL 25 MG TABLET PO SCH (08:44)
[2025-09-13] MEDS: KERENDIA 10 MG PO SCH (08:45)
[2025-09-13] MEDS ORDERED: QUETIAPINE FUMARATE 25 MG TABLET PO PRN (11:00)
[2025-09-13] MEDS ORDERED: DEXTROSE 50% 50 ML DISP.SYRIN IV PRN (12:30)
[2025-09-13 13:34] LABS: PLATELET COUNT (AUTO) 209 K/uL (152-348); RED BLOOD CELL COUNT(AUTO) 3.94 MIL/uL (4.06-5.63); RED CELL DISTRIBUTION WIDTH 15.3 % (12.1-16.2); WHITE BLOOD COUNT (AUTO) 5.2 K/uL (3.6-10.2)
[2025-09-13 13:47] LABS: ASPARTATE AMINOTRANSFERASE 18 U/L (15-37); CREATINE KINASE, TOTAL 38 U/L (39-308); CREATININE 2.1 mg/dL (0.6-1.3); SODIUM SERUM 142 mmol/L (136-145); TOTAL PROTEIN, SERUM 6.0 g/dL (6.4-8.2); UREA NITROGEN, BLOOD 47 mg/dL (7-18)
[2025-09-13 14:12] LABS: EOSINOPHILS % (MANUAL) 9 % (0-8); LYMPHOCYTES % (MANUAL) 16 % (20-40); METAMYELOCYTES % 1 % (0-1); MONOCYTES % (MANUAL) 17 % (2-10); MYELOCYTES % 3 % (0-0); NEUTROPHILS % (MANUAL) 54 % (42-75); PLATELET ESTIMATE ADEQUATE
[2025-09-13] MEDS: BLOOD SUGAR DIAGNOSTIC 1 EACH STRIP VI SCH (17:07)
[2025-09-13] MEDS: INSULIN REGULAR, HUMAN 1000 UNIT/10 ML VIAL SQ PRN (17:23)
[2025-09-13] MEDS: ACETAMINOPHEN 325 MG TABLET PO PRN (19:00)
[2025-09-13] MEDS: INSULIN REGULAR, HUMAN 300 UNITS/3 ML VIAL SQ PRN (20:25)
[2025-09-14 04:53] VITALS: O2SAT 96
[2025-09-14 05:55] VITALS: BP 133/48; TEMP 99.6; O2SAT 95
[2025-09-14 06:46] LABS: PLATELET COUNT (AUTO) 238 K/uL (152-348); RED BLOOD CELL COUNT(AUTO) 4.02 MIL/uL (4.06-5.63); RED CELL DISTRIBUTION WIDTH 15.5 % (12.1-16.2); WHITE BLOOD COUNT (AUTO) 6.5 K/uL (3.6-10.2)
[2025-09-14 07:02] LABS: CREATININE 2.2 mg/dL (0.6-1.3); SODIUM SERUM 142 mmol/L (136-145); UREA NITROGEN, BLOOD 42 mg/dL (7-18)
[2025-09-14 07:07] LABS: PTH, INTACT 23 pg/mL (15-65)
[2025-09-14 12:00] VITALS: BP 109/48; TEMP 97.2; O2SAT 98
[2025-09-14 16:09] VITALS: BP 130/56
[2025-09-14] MEDS ORDERED: ATOR10TA PO (18:03)
[2025-09-14] MEDS ORDERED: AZIT500V8 IV (18:05)
[2025-09-14] MEDS ORDERED: CEFT2VIA14 IV (18:06)
[2025-09-14] MEDS ORDERED: DEXT50DI5 IV (18:07)
[2025-09-14] MEDS ORDERED: INSU100V28 SQ ×2 (18:09→18:10)
[2025-09-14] MEDS ORDERED: LIPA1CAP27 PO (18:11)
[2025-09-14] MEDS ORDERED: MAGN400O6 PO (18:12)
[2025-09-14] MEDS ORDERED: PANT40TA49 PO (18:13)
[2025-09-14] MEDS ORDERED: ONDA4SYR IV (18:13)
[2025-09-14] MEDS ORDERED: QUET25TA PO (18:14)
[2025-09-14] MEDS ORDERED: Z-GUARD TOP (18:37)
== END 2025-09-14 16:27 | DRG 56 ==
LOC: ER 14:10 → TELE3 20:16 → MEDSURG3 09-13 08:48
PROVIDERS: ADMIT Student in an Organized Health Care Education/Training Program; ATTEND Nurse Practitioner Acute Care
DX: G91.2 (Idiopathic) normal pressure hydrocephalus (principal); N17.0 Acute kidney failure with tubular necrosis; B48.8 Other specified mycoses; E44.0 Moderate protein-calorie malnutrition; I50.32 Chronic diastolic (congestive) heart failure; N39.0 Urinary tract infection, site not specified; I42.9 Cardiomyopathy, unspecified; F03.92 Unspecified dementia, unspecified severity, with psychotic disturbance; G93.49 Other encephalopathy; F03.918 Unspecified dementia, unspecified severity, with other behavioral disturbance; I13.0 Hypertensive heart and chronic kidney disease with heart failure and stage 1 through stage 4 chronic kidney disease, or unspecified chronic kidney disease; E11.22 Type 2 diabetes mellitus with diabetic chronic kidney disease; E78.5 Hyperlipidemia, unspecified; J44.9 Chronic obstructive pulmonary disease, unspecified; Z79.4 Long term (current) use of insulin; Z85.828 Personal history of other malignant neoplasm of skin; Z87.891 Personal history of nicotine dependence; Z91.199 Patient's noncompliance with other medical treatment and regimen due to unspecified reason; R53.1 Weakness; N18.9 Chronic kidney disease, unspecified; N40.0 Benign prostatic hyperplasia without lower urinary tract symptoms; Z68.37 Body mass index [BMI] 37.0-37.9, adult; F39 Unspecified mood [affective] disorder; J32.0 Chronic maxillary sinusitis; F29 Unspecified psychosis not due to a substance or known physiological condition; E66.9 Obesity, unspecified; Z79.899 Other long term (current) drug therapy
CPT/HCPCS: 36415; 70030-TC; 70450; 71045; 83605; 83735; 83970; 84100; 84155; 84165; 84443; 84484; 85025; 85730; 87040; 87086; 93307; A4606; A4663; C1758; G0378; J0456; J0696; J1815; J7040; J7050

== ENCOUNTER 2025-09-14 10:34 | Inpatient (IN) | payer MEDICARE, OTHER ==
[~2025-09-14] VITALS: Ht 165.1 cm; Wt 101.2 kg
[~2025-09-14 10:34] MED LIST changes: -CARV12.52 PO; +CARV25TA2 PO; -LINA1TAB3 PO; -LOSA50TA39 PO
[2025-09-14 10:59] VITALS: BP 134/55; TEMP 99.6
[2025-09-14 11:00] VITALS: BP 134/55; TEMP 99.6
[2025-09-14 13:00] VITALS: BP 134/55; TEMP 99.6
[2025-09-14 17:30] VITALS: BP 122/54; TEMP 97.6; O2SAT 93
[2025-09-14] MEDS ORDERED: ATOR10TA PO (18:03)
[2025-09-14] MEDS ORDERED: AZIT500V8 IV (18:05)
[2025-09-14] MEDS ORDERED: CEFT2VIA14 IV (18:06)
[2025-09-14] MEDS ORDERED: DEXT50DI5 IV (18:07)
[2025-09-14] MEDS ORDERED: INSU100V28 SQ ×2 (18:09→18:10)
[2025-09-14] MEDS ORDERED: LIPA1CAP27 PO (18:11)
[2025-09-14] MEDS ORDERED: MAGN400O6 PO (18:12)
[2025-09-14] MEDS ORDERED: ONDA4SYR IV (18:13)
[2025-09-14] MEDS ORDERED: PANT40TA49 PO (18:13)
[2025-09-14] MEDS ORDERED: QUET25TA PO (18:14)
[2025-09-14] MEDS ORDERED: Z-GUARD TOP (18:37)
[2025-09-14 18:41] LABS: PLATELET COUNT (AUTO) 223 K/uL (152-348); RED BLOOD CELL COUNT(AUTO) 3.90 MIL/uL (4.06-5.63); RED CELL DISTRIBUTION WIDTH 15.3 % (12.1-16.2); WHITE BLOOD COUNT (AUTO) 6.2 K/uL (3.6-10.2)
[2025-09-14 18:50] LABS: CREATININE 2.1 mg/dL (0.6-1.3); SODIUM SERUM 139 mmol/L (136-145); UREA NITROGEN, BLOOD 44 mg/dL (7-18)
[2025-09-14 19:14] LABS: EOSINOPHILS % (MANUAL) 8 % (0-8); LYMPHOCYTES % (MANUAL) 12 % (20-40); MONOCYTES % (MANUAL) 10 % (2-10); NEUTROPHILS % (MANUAL) 70 % (42-75); PLATELET ESTIMATE ADEQUATE
[2025-09-14] MEDS ORDERED: MAGNESIUM HYDROXIDE 30 ML LIQUID UDC PO PRN (19:30)
[2025-09-14] MEDS ORDERED: LIPASE/PROTEASE/AMYLASE 4200 UNITS CAPSULE.DR PO SCH (19:30)
[2025-09-14] MEDS ORDERED: DEXTROSE 50% 50 ML DISP.SYRIN IV PRN (19:45)
[2025-09-14] MEDS ORDERED: CEFTRIAXONE /D5W 50ML IVPB **ER PYXIS IV ONE (20:25)
[2025-09-14] MEDS: TERAZOSIN 5 MG CAPSULE PO SCH (21:00)
[2025-09-14] MEDS: CARVEDILOL 25 MG TABLET PO SCH (21:00)
[2025-09-14] MEDS: BLOOD SUGAR DIAGNOSTIC 1 EACH STRIP VI SCH (21:00)
[2025-09-14] MEDS: ATORVASTATIN 10 MG TABLET PO SCH (21:00)
[2025-09-14] MEDS ORDERED: INSULIN REGULAR, HUMAN 1000 UNIT/10 ML VIAL ONE (21:56)
[2025-09-14] MEDS: INSULIN REGULAR, HUMAN 300 UNITS/3 ML VIAL SQ PRN (22:45)
[2025-09-15] MEDS: REMEDY ESSENTIAL ZINC PASTE 113 GM TOP PRN (09:01)
[2025-09-15] MEDS: PANTOPRAZOLE SODIUM 40 MG TABLET.DR PO SCH (09:02)
[2025-09-15] MEDS: ALLOPURINOL 100 MG TABLET PO SCH (09:02)
[2025-09-15] MEDS: LIPASE/PROTEASE/AMYLASE 4200 UNITS CAPSULE.DR PO SCH (09:02)
[2025-09-15] MEDS: CHOLECALCIFEROL 1,000 UNIT TABLET PO SCH (09:02)
[2025-09-15] MEDS: FINASTERIDE 5 MG TABLET PO SCH (09:03)
[2025-09-15] MEDS: ASPIRIN 81 MG TAB.CHEW PO SCH (09:04)
[2025-09-15] MEDS: FOLIC ACID 1 MG TABLET PO SCH (09:04)
[2025-09-15] MEDS: INSULIN REGULAR, HUMAN 1000 UNIT/10 ML VIAL SQ PRN (09:06)
[2025-09-15 09:33] VITALS: BP 132/61; O2SAT 95
[2025-09-15 15:56] VITALS: BP 131/56; TEMP 97.6; O2SAT 98
[2025-09-16 07:08] VITALS: BP 136/54; TEMP 98.5; O2SAT 93
[2025-09-16] MEDS: PANTOPRAZOLE SODIUM 40 MG TABLET.DR PO SCH (07:46)
[2025-09-16 08:00] VITALS: BP 146/68; TEMP 98.3; O2SAT 98
[2025-09-16] MEDS ORDERED: DEXTROSE 50% 50 ML DISP.SYRIN IV PRN (10:15)
[2025-09-16] MEDS: BLOOD SUGAR DIAGNOSTIC 1 EACH STRIP VI SCH (12:08)
[2025-09-16] MEDS: INSULIN REGULAR, HUMAN 1000 UNIT/10 ML VIAL SQ PRN (12:11)
[2025-09-16] MEDS: KERENDIA 10 MG PO SCH (15:24)
[2025-09-16 16:00] VITALS: BP 139/60; TEMP 98.8; O2SAT 96
[2025-09-16 20:00] VITALS: BP 151/61; TEMP 98.4; O2SAT 94; O2SAT 97
[2025-09-16] MEDS: INSULIN REGULAR, HUMAN 300 UNITS/3 ML VIAL SQ PRN (20:26)
[2025-09-17 05:00] VITALS: BP 132/67; O2SAT 94
[2025-09-17 16:17] VITALS: BP 128/55; TEMP 97.8; O2SAT 98
[2025-09-17] MEDS: BISACODYL 5 MG TABLET.DR PO PRN (17:08)
[2025-09-17 18:14] LABS: PLATELET COUNT (AUTO) 242 K/uL (152-348); RED BLOOD CELL COUNT(AUTO) 3.76 MIL/uL (4.06-5.63); RED CELL DISTRIBUTION WIDTH 15.1 % (12.1-16.2); WHITE BLOOD COUNT (AUTO) 6.2 K/uL (3.6-10.2)
[2025-09-17 18:29] LABS: ABG BASE EXCESS -4.5 mmol/L (-2.0-3.0); ABG HCO3 19.3 mmol/L (21.0-28.0); ABG PCO2 31.5 mmHg (35.0-48.0); ABG PH 7.406 (7.350-7.450); ABG PO2 95.2 mmHg (83.0-108.0); ABG SITE LEFT RADIAL; ABG TOTAL HEMOGLOBIN 11.0 G/dL (13.5-17.5); AaDO2 97.4 mmHg; FIO2 24.0 %; FLOW, BLOOD GAS 1.00 L/min (0.00-30.00)
[2025-09-17 18:35] LABS: ASPARTATE AMINOTRANSFERASE 15 U/L (15-37); CREATININE 2.4 mg/dL (0.6-1.3); SODIUM SERUM 138 mmol/L (136-145); TOTAL PROTEIN, SERUM 6.3 g/dL (6.4-8.2); UREA NITROGEN, BLOOD 45 mg/dL (7-18)
[2025-09-17 18:37] VITALS: BP 126/54
[2025-09-17 20:00] VITALS: BP 132/64; TEMP 97.2; O2SAT 96
[2025-09-18 08:00] VITALS: BP 130/56; TEMP 97.5; O2SAT 96
[2025-09-18 08:50] VITALS: BP 130/56; TEMP 97.5
[2025-09-18] MEDS: KERENDIA 10 MG PO SCH (09:06)
[2025-09-18 10:30] VITALS: O2SAT 97
[2025-09-18 16:01] VITALS: BP 149/62; TEMP 97.7; O2SAT 96
[2025-09-18 19:50] VITALS: BP 155/55; TEMP 97.6; O2SAT 95
[2025-09-19 08:00] VITALS: BP 145/67; TEMP 97.8; O2SAT 97
[2025-09-19 08:30] VITALS: BP 119/45; TEMP 97.7; O2SAT 94
[2025-09-19] MEDS: FAMOTIDINE 20 MG TABLET PO SCH (08:35)
[2025-09-19] MEDS ORDERED: FAMOTIDINE 20 MG TABLET PO SCH (09:00)
[2025-09-19 16:00] VITALS: BP 151/61; TEMP 97.8; O2SAT 97
[2025-09-19 20:00] VITALS: BP 146/55; TEMP 97.9; O2SAT 95
[2025-09-19] MEDS: INSULIN GLARGINE,HUM 300 UNITS/3 ML CARTRIDGE SQ SCH (21:06)
[2025-09-20 05:00] VITALS: BP 148/62; O2SAT 96
[2025-09-20 08:06] VITALS: BP 146/66; TEMP 97.8; O2SAT 97
[2025-09-20 16:25] VITALS: BP 135/43; TEMP 97.6; O2SAT 97
[2025-09-20 21:35] VITALS: BP 161/50; TEMP 98.2; O2SAT 94
[2025-09-21 08:00] VITALS: BP 152/69; TEMP 97.8; O2SAT 94
[2025-09-21 16:00] VITALS: BP 127/73; TEMP 97.6; O2SAT 96
[2025-09-21] MEDS: INSULIN GLARGINE,HUM 300 UNITS/3 ML CARTRIDGE SQ SCH (20:26)
[2025-09-21 20:42] VITALS: BP 151/63; TEMP 98; O2SAT 94
[2025-09-22 06:23] VITALS: BP 134/55; TEMP 98.1; O2SAT 95
[2025-09-22 08:29] LABS: PLATELET COUNT (AUTO) 234 K/uL (152-348); RED BLOOD CELL COUNT(AUTO) 3.77 MIL/uL (4.06-5.63); RED CELL DISTRIBUTION WIDTH 15.4 % (12.1-16.2); WHITE BLOOD COUNT (AUTO) 7.3 K/uL (3.6-10.2)
[2025-09-22 08:52] LABS: ASPARTATE AMINOTRANSFERASE 21 U/L (15-37); CREATININE 1.7 mg/dL (0.6-1.3); SODIUM SERUM 140 mmol/L (136-145); TOTAL PROTEIN, SERUM 6.5 g/dL (6.4-8.2); UREA NITROGEN, BLOOD 34 mg/dL (7-18)
[2025-09-22 15:53] VITALS: BP 130/60; TEMP 98.7; O2SAT 95
[2025-09-22 20:05] VITALS: BP 147/55; TEMP 98.4; O2SAT 94
[2025-09-23 20:00] VITALS: BP 141/69; TEMP 98; O2SAT 94
[2025-09-23] MEDS: QUETIAPINE FUMARATE 25 MG TABLET PO PRN (20:17)
[2025-09-23] MEDS: INSULIN GLARGINE,HUM 300 UNITS/3 ML CARTRIDGE SQ SCH (22:07)
[2025-09-24 06:58] VITALS: BP 122/41; TEMP 98.4; O2SAT 94
[2025-09-24 08:00] VITALS: BP 174/74; TEMP 97.7; O2SAT 96
[2025-09-24 10:10] VITALS: BP 148/56; O2SAT 97
[2025-09-24] MEDS: ASPIRIN/ACETAMINOPHEN/CAFFEINE TABLET PO ONE (14:00)
[2025-09-24 16:00] VITALS: BP 137/58; TEMP 97.9; O2SAT 94
[2025-09-24 20:00] VITALS: BP 142/60; TEMP 98.5; O2SAT 95
[2025-09-25 07:30] VITALS: BP 113/53; O2SAT 95
[2025-09-25 16:28] VITALS: BP 137/59; TEMP 97.8; O2SAT 97
[2025-09-25] MEDS: INSULIN GLARGINE,HUM 300 UNITS/3 ML CARTRIDGE SQ SCH (20:18)
[2025-09-26 06:48] VITALS: BP 157/69; O2SAT 95
[2025-09-26 15:30] VITALS: BP 142/61; TEMP 98.9; O2SAT 96
[2025-09-27 06:40] VITALS: BP 155/74; TEMP 97.3; O2SAT 97
[2025-09-27 08:00] VITALS: BP 135/47; TEMP 97.8; O2SAT 95
[2025-09-27 08:42] VITALS: BP 135/47
[2025-09-27] MEDS ORDERED: INSULIN GLARGINE,HUM 300 UNITS/3 ML CARTRIDGE SQ SCH (21:00)
== END 2025-09-27 15:03 | disposition home health service (06) | DRG 91 ==
PROVIDERS: ADMIT Physical Medicine & Rehabilitation Pain Medicine; ATTEND Internal Medicine
DX: G92.8 Other toxic encephalopathy (principal); J96.01 Acute respiratory failure with hypoxia; N17.0 Acute kidney failure with tubular necrosis; E44.0 Moderate protein-calorie malnutrition; I50.32 Chronic diastolic (congestive) heart failure; I42.9 Cardiomyopathy, unspecified; E86.0 Dehydration; S81.811A Laceration without foreign body, right lower leg, initial encounter; G91.2 (Idiopathic) normal pressure hydrocephalus; I13.0 Hypertensive heart and chronic kidney disease with heart failure and stage 1 through stage 4 chronic kidney disease, or unspecified chronic kidney disease; E11.22 Type 2 diabetes mellitus with diabetic chronic kidney disease; E66.9 Obesity, unspecified; F03.90 Unspecified dementia, unspecified severity, without behavioral disturbance, psychotic disturbance, mood disturbance, and anxiety; J44.9 Chronic obstructive pulmonary disease, unspecified; N18.9 Chronic kidney disease, unspecified; D68.59 Other primary thrombophilia; E88.09 Other disorders of plasma-protein metabolism, not elsewhere classified; E78.5 Hyperlipidemia, unspecified; N40.0 Benign prostatic hyperplasia without lower urinary tract symptoms; Z68.34 Body mass index [BMI] 34.0-34.9, adult; E11.40 Type 2 diabetes mellitus with diabetic neuropathy, unspecified; N50.89 Other specified disorders of the male genital organs; Z68.37 Body mass index [BMI] 37.0-37.9, adult; Z85.828 Personal history of other malignant neoplasm of skin; Z91.199 Patient's noncompliance with other medical treatment and regimen due to unspecified reason; Z88.1 Allergy status to other antibiotic agents; X58.XXXA Exposure to other specified factors, initial encounter; Y93.9 Activity, unspecified; Y92.89 Other specified places as the place of occurrence of the external cause
CPT/HCPCS: 36415; 36600; 70030-TC; 70450; 83735; 84100; 85025; 97535-GO-CO; A9150; J0696; J1815; J8499; Q0163